=== PATIENT | female | born 1940 | race Caucasian/White ===

== ENCOUNTER → 2017-09-12 14:14 | Outpatient (CLI) | payer MEDICARE, OTHER, SELFPAY ==
--- NOTE | 2017-09-12 | DI.MG.S_ITS ---
BILATERAL DIGITAL SCREENING MAMMOGRAM 3D/2D WITH CAD: 09/12/2017 CLINICAL: Routine screening. Comparison is made to exams dated: 08/14/2016 mammogram - [facility], 06/13/2015 mammogram, and 06/13/2015 mammogram - [facility]. The tissue of both breasts is heterogeneously dense. This may lower the sensitivity of mammography. Current study was also evaluated with a Computer Aided Detection (CAD) system. No significant masses, calcifications, or other findings are seen in either breast. There has been no significant interval change. IMPRESSION: NEGATIVE There is no mammographic evidence of malignancy. A 1 year screening mammogram is recommended. This exam was interpreted at Station ID: [id number]. NOTE: For mammograms, a report in lay terms will be sent to the patient. Approximately 15% of breast malignancies will not be visualized mammographically. In the management of a palpable breast mass, a negative mammogram must not discourage biopsy of a clinically suspicious lesion. Electronically Signed By: Immanuel so/john:09/12/2017 15:47:49 letter sent: Normal Exam ACR BI-RADS Category 1: Negative [id number]
== END ==
PROVIDERS: Family Provider Physician Assistant; PCP Physician Assistant; Visit Provider Physician Assistant
DX: Z12.31 Encounter for screening mammogram for malignant neoplasm of breast (principal)
CPT/HCPCS: 77063; 77067

== ENCOUNTER 2017-12-03 13:56 | Day surgery (SDC) | payer MEDICARE, OTHER, SELFPAY ==
--- NOTE | 2017-12-03 08:33 | PM.PREOP ---
Pre-operative Note Interval Note Pre-op Check: Yes History & Physical Reviewed by Physician Changes: No
[2017-12-03 15:02] VITALS: BP 152/84; PULSE 72; RESP 18; TEMP 36.4; O2SAT 98
[2017-12-03 15:03] VITALS: BMI 20.7
[2017-12-03] MEDS: PROPARACAINE 0.5% OPHTH SOL 2 DROPS EYE-OP ×2 (15:05→15:54)
[2017-12-03] MEDS: CATARACT EYE COMPOUND (10 DROPS/SYRINGE) 3 DROPS EYE-OP (15:26)
[2017-12-03] MEDS: LIDOCAINE 1% W/EPI INJ 20 ML INJ (15:59)
[2017-12-03] MEDS: LIDOCAINE 2% 4 ML, BUPIVACAINE 0.5% (PF) 4 ML, HYALURONIDASE 150 UNIT INJ (16:00)
[2017-12-03] MEDS: CHONDROIDTIN/SOD HYALURONATE 1.05 ML SYRINGE INTRAOCULA (16:21)
[2017-12-03] MEDS: BALANCED SALT IRRIG SOLN NO.2 15 ML IRRIG.SOLN IRR (16:21)
[2017-12-03] MEDS: HYALURONATE SODIUM 10 MG/ML SYRINGE INJ (16:22)
[2017-12-03] MEDS: MOXIFLOXACIN OPHTH DROPS 3 ML BOTTLE 2 DROPS INJ (16:22)
[2017-12-03] MEDS: OFLOXACIN 0.3% OPHTH 5 ML 2 DROPS EYE-LEFT (16:23)
[2017-12-03] MEDS: NEOMYCIN/POLY/DEX OPHTH OINT 1 APPLIC EYE-LEFT (16:23)
[2017-12-03] MEDS: PHENYLEPHRINE/LIDOCAINE VIAL (OR) 0.2 ML EYE-OP (16:23)
[2017-12-03] MEDS: BALANCED SALT IRRIG SOLN NO.2 500 ML, EPINEPHrine 1 MG IRR (16:24)
[2017-12-03] MEDS: TRIAMCINOLONE 50 MG/5 ML VIAL INJ (16:24)
--- NOTE | 2017-12-03 16:53 | SUR.PREOP ---
Prior to surgery all OR staff alerted to Betadyne allergy.
[2017-12-03 16:54] VITALS: BP 148/84; PULSE 62; RESP 16; TEMP 36.2; O2SAT 95
--- NOTE | 2017-12-03 16:59 | PM.OP.1 ---
Procedure & Clinicians Procedure: Date of service:December 03 Preoperative diagnoses: 1. nuclear sclerotic and cortical Cataract. 2. Astigmatism which she likes to correct with a toric intraocular lens implant Postoperative diagnoses: 1. Cataract removed with phacoemulsification posterior chamber toric intraocular lens implanted. Procedure: Phacoemulsification with posterior chamber intraocular lens implant Surgeon: Kena Lackey MD Complications: none Specimen: None Implant: [id number] +23. Blood loss: None Anesthesia: Retrobulbar with monitored standby Anesthesiologist: Kendrick Patterson M.D. Description of procedure: Patient is a 77 year old female with decreased vision due to cataract which is affecting activities of daily living. She wants surgery to improve vision. She was taken to the operating room and given IV sedation. Topical proparacaine drops were placed and then indelible ink diego placed at the 90 and 180 degree meridian.A retrobulbar block consisting of 6 cc of 2% xylocaine without epinephrine mixed half and half with 0.5% Marcaine with 1 cc of hyaluronidase added is placed between the medial and lateral 1/3 of the inferior orbital rim. Lid akinesia is obtain with 1% xylocaine with epinephrine infiltrated along the lid margin. The eye is manually massaged for 30 sec, prepped using Betadine solution, and draped in the usual sterile fashion. Temporal approach was made, a 1 mm side-port incision was made at the 12 oclock meridian. Phenylephrine 1.5% mixed with 1% xylocaine 0.2 cc was placed into the anterior chamber. Viscoat followed by Healon was then placed. A 2.6 mm clear incision with a 2.6 mm blade was placed at the 3 oclock meridian. A 360 degree capsulorrhexis style capsulotomy was then performed with a cystitome needle on a Healon. Hydrodelineation and hydrodissection were performed. The phacoemulsification unit is introduced, and sculpting notice used to groove the central lens. It is then removed in chopping mode. Epi nucleus is removed with epinuclear mode and irrigation aspiration was used to remove the peripheral cortex. The posterior capsule is polished. The intraocular lens is selected, inspected, power confirmed, and placed in the posterior chamber at the 11 o'clock position. The pupil was constricted. The wound was stromally hydrated and tested for leaks, there was none and was left sutureless. Vigamox 0.1 cc was placed into the anterior chamber. Kenalog 0.2 cc was placed in the superior subconjunctival space. A drop of antibiotic and was placed and the eye was patched and shielded. The patient was stable and returned to the recovery room in excellent condition. Dictated by: Kena Lackey MD Copy to: [facility] Same procedure as scheduled: Yes
--- NOTE | 2017-12-03 17:09 | SUR.PHASEII ---
Much more relaxed than preoperative.
== END 2017-12-03 17:10 | disposition home or self-care (01) ==
LOC: OR 13:56
PROVIDERS: Family Provider Physician Assistant; PCP Physician Assistant; Visit Provider Ophthalmology
DX: H25.12 Age-related nuclear cataract, left eye (principal); F41.9 Anxiety disorder, unspecified; H52.202 Unspecified astigmatism, left eye
CPT/HCPCS: J0171; J2250; J2704; J3010; J3301; J3470; V2787

== ENCOUNTER 2017-12-17 08:25 | Day surgery (SDC) | payer MEDICARE, OTHER, SELFPAY ==
[2017-12-17] VITALS (7 sets, daily range): BP systolic 109–148; BP diastolic 67–93; PULSE 66–81; RESP 12–16; TEMP 35.8–36.7; O2SAT 95–100; BMI 20.7
--- NOTE | 2017-12-17 08:14 | PM.PREOP ---
Pre-operative Note Interval Note Pre-op Check: Yes History & Physical Reviewed by Physician Changes: No
--- NOTE | 2017-12-17 08:22 | PM.OP.1 ---
Operative Date/Time/Diagnoses Date of procedure: 12/17/17 Time of procedure: 11:00 Procedure & Clinicians Procedure: Date of service: December 18, 2007 Preoperative diagnoses: 1. Right nuclear and cortical cataract 2. Astigmatism which she elects to correct with a toric intraocular lens implant. 3. Restless leg syndrome requiring conversion to laryngeal mask airway to manage. Postoperative diagnoses: 1. Cataract removed with the phacoemulsification and posterior chamber intraocular toric lens placed. Procedure: Phacoemulsification with posterior chamber intraocular lens implant Surgeon: Kena Lackey MD Complications: Non.e Specimen: None Implent.: [id number] at 013 degrees. Implant: [id number] +23.0 [id number]. Chandler Mcbride M.D. Description of procedure: Patient is a female year old with decreased vision due to cataract which is affecting activities of daily living. She wants surgery to improve vision and correct astigmatism. She was taken to the operating room and given topical proparacaine drops and indelible ink markings placed at the 90 and 180 degree meridian. She was then placed on the operating room table and given IV sedation. A retrobulbar block insert consisting of 6 cc of 2% xylocaine without epinephrine mixed half and half with 0.5% Marcaine with 1 cc of hyaluronidase added is placed between the medial and lateral 1/3 of the inferior orbital rim. Lid akinesia is obtain with 1% xylocaine with epinephrine infiltrated along the lid margin. The eye is manually massaged for 30 sec, prepped using Betadine solution, and draped in the usual sterile fashion. She is sensitive to betadine so it was removed after 3 minutes without reaction. Temporal approach was made, a 1 mm side-port incision was made at the 7:30 position. The patient had severe jerking restless leg syndrome involving the whole body which did not resolved over several minutes so she was converted to general anesthetic with a laryngeal airway.Phenylephrine 1.5% mixed with 1% xylocaine 0.2 cc was placed into the anterior chamber. Viscoat followed by Yuridia was then placed. A 2.6 mm clear incision with a 2.6 mm blade was placed at the 170 degree meridian. A 360 degree capsulorrhexis style capsulotomy was then performed with a cystitome needle on a Healon. Hydrodelineation and hydrodissection were performed. The phacoemulsification unit is introduced, and sculpting notice used to groove the central lens. It is then removed in chopping mode. Epi nucleus is removed with epinuclear mode and irrigation aspiration was used to remove the peripheral cortex. The posterior capsule is polished. The intraocular lens is selected, inspected, power confirmed, and placed in the posterior chamber at the 013 degree meridian.. The pupil was not constricted. The wound was strongly hydrated and tested for leaks, there was none and left sutureless. Vigamox 0.1 cc was placed into the anterior chamber. Kenalog 0.2 cc was placed in the superior subconjunctival space. A drop of antibiotic and was placed and the eye was patched and shielded. The patient was stable and returned to the recovery room in excellent condition. Dictated by: Kena Lackey MD Copy to: [facility] Same procedure as scheduled: Yes
[2017-12-17] MEDS: PROPARACAINE 0.5% OPHTH SOL 2 DROPS EYE-OP (10:10)
[2017-12-17] MEDS: CATARACT EYE COMPOUND (10 DROPS/SYRINGE) 3 DROPS EYE-OP (10:21)
[2017-12-17] MEDS: HYALURONATE SODIUM 10 MG/ML SYRINGE INJ (11:19)
[2017-12-17] MEDS: LIDOCAINE 1% W/EPI INJ 20 ML INJ (11:19)
[2017-12-17] MEDS: CHONDROIDTIN/SOD HYALURONATE 1.05 ML SYRINGE INTRAOCULA (11:19)
[2017-12-17] MEDS: BALANCED SALT IRRIG SOLN NO.2 15 ML IRRIG.SOLN IRR (11:19)
[2017-12-17] MEDS: MOXIFLOXACIN OPHTH DROPS 3 ML BOTTLE 2 DROPS INJ (11:20)
[2017-12-17] MEDS: NEOMYCIN/POLY/DEX OPHTH OINT 1 APPLIC EYE-RIGHT (11:20)
[2017-12-17] MEDS: OFLOXACIN 0.3% OPHTH 5 ML 2 DROPS EYE-RIGHT (11:20)
[2017-12-17] MEDS: PHENYLEPHRINE/LIDOCAINE VIAL (OR) 0.2 ML EYE-OP (11:20)
[2017-12-17] MEDS: TRIAMCINOLONE 50 MG/5 ML VIAL INJ (11:21)
[2017-12-17] MEDS: BALANCED SALT IRRIG SOLN NO.2 500 ML, EPINEPHrine 1 MG IRR (11:21)
[2017-12-17] MEDS: LIDOCAINE 2% 4 ML, BUPIVACAINE 0.5% (PF) 4 ML, HYALURONIDASE 150 UNIT INJ (11:22)
--- NOTE | 2017-12-17 12:07 | SUR.PHASEI ---
operative eye is patched, shielded and c/d/i.
== END 2017-12-17 12:45 | disposition home or self-care (01) ==
LOC: OR 08:25
PROVIDERS: PCP Family Medicine; Visit Provider Ophthalmology
DX: H25.11 Age-related nuclear cataract, right eye (principal); H25.011 Cortical age-related cataract, right eye; H52.201 Unspecified astigmatism, right eye; G25.81 Restless legs syndrome; Z85.820 Personal history of malignant melanoma of skin; H91.90 Unspecified hearing loss, unspecified ear
CPT/HCPCS: J0171; J2250; J2704; J3010; J3301; J3470; V2787

== ENCOUNTER 2018-07-17 21:05 | Emergency (ER) | payer MEDICARE, OTHER, SELFPAY ==
[2018-07-17 21:10] VITALS: BP 137/87; PULSE 101; RESP 24; TEMP 36.6; O2SAT 100; BMI 20.9
--- NOTE | 2018-07-17 21:15 | DI.CT.S_ITS ---
PROCEDURE: CT HEAD/BRAIN WO CON INDICATIONS: headache,nausea,on plavix TECHNIQUE: Noncontrast 4.5 mm thick angled axial sections acquired from the foramen magnum to the vertex, with coronal and sagittal reformats. For radiation dose reduction, the following was used: automated exposure control, adjustment of mA and/or kV according to patient size. COMPARISON: None. FINDINGS: Image quality: Excellent. CSF spaces: Basal cisterns are patent. No extra-axial fluid collections. Ventricles are normal in size and shape. Brain: No midline shift. No intracranial masses or hemorrhage. Sultana-white matter interface is normal. There is age-related Loss and mild small vessel ischemic change, within normal limits for patient age. Skull and face: Calvarium and visualized facial bones are intact, without suspicious lesions. Sinuses: Visualized sinuses and mastoids are clear. IMPRESSION: 1. Age related volume loss and mild small vessel ischemic change, within normal limits for patient age. 2. Negative for acute stroke, hemorrhage, or mass. Dictated by: Mp Rodriguez M.D. on 07/17/2018 at 21:51 Approved by: Mp Rodriguez M.D. on 07/17/2018 at 21:52
--- NOTE | 2018-07-17 21:35 | ED_ITS ---
HPI - Headache General Chief Complaint: Headache Stated Complaint: THROWING UP HEADACHE Time Seen by Provider: 07/17/18 21:33 Source: patient and family Mode of arrival: ambulatory Limitations: no limitations History of Present Illness HPI Narrative: Patient is a 77-year-old female here for evaluation of a headache. She states that it started approximately 1 hour prior to arrival here in the emergency department. She has had some nausea. She states that when she was a kid that she used to have headaches. She states that in character this feels like 1 of her prior headaches. She states that it was a fairly sudden onset within an hour. No trauma. She did drive from [facility] to the local area today. She also states that she has recently had problems with her eyes and vision issues. She states that she has seen her doctor about this and they think that she needs further evaluation however there is no definitive diagnosis. No fevers. No neck pain. Not on anticoagulation. Describes the headache as all over and pounding. She also has had balance issues but these are not new they have been going on for many weeks if not months now. Related Data Home Medications Medication Instructions Recorded Confirmed calcium carbonate 600 mg PO DAILY #0 02/08/16 12/17/17 cholecalciferol (vitamin D3) 400 iu PO DAILY #0 02/08/16 12/17/17 [Vitamin D3] ibuprofen [Advil Liqui-Gel] 200 mg PO Q6H PRN #0 02/08/16 12/17/17 Previous Rx's Medication Instructions Recorded aspirin 81 mg tablet,delayed 81 mg PO DAILY #90 tab 12/05/17 release fluticasone propionate 50 2 spray NASAL DAILY #15.8 gram 12/05/17 mcg/actuation nasal spray,suspension loratadine 10 mg tablet 10 mg PO DAILY #90 tab 12/05/17 Allergies Allergy/AdvReac Type Severity Reaction Status Date / Time povidone-iodine Allergy Unknown Verified 07/17/18 21:09 [From BETADINE] soap [From BETADINE] Allergy Unknown Verified 07/17/18 21:09 morphine AdvReac Mild Irritable Verified 07/17/18 21:09 Review of Systems Constitutional Denies fatigue and Reports headache(s) Eyes Denies diplopia and Reports photophobia (This is been going on since her cataract surgery) ENT Ears, Nose, Mouth, and Throat: Denies vertigo, Denies dizziness, Reports headache(s) and Denies disequilibrium Cardiovascular Denies chest pain, Denies edema, Denies palpitations and Denies dyspnea Respiratory Denies dyspnea Gastrointestinal Gastrointestinal: Denies abdominal pain, Reports nausea and Reports vomiting Genitourinary Denies dysuria Integumentary/Breasts Denies rash Neurologic Denies confusion, Denies vertigo, Denies dizziness, Reports headache(s), Denies paresthesias and Denies disequilibrium Psychiatric Denies confusion Endocrine Denies fatigue and Denies palpitations Hematologic/Lymphatic Denies easy bleeding and Denies easy bruising Allergic/Immunologic Denies urticaria [facility] Medical History Actinic keratosis (Chronic) Fever (Chronic ~2001) Gout (Chronic ~2016) Hearing loss (Chronic) Herniated disc (Chronic ~2007) Osteopenia (Chronic) Presence of pessary (Chronic ~2002) Rheumatoid arthritis (Chronic ~2016) Seasonal allergies (Chronic ~1949) Shoulder pain (Chronic) Tinnitus (Chronic ~1949) Vision disorder (Chronic) Chicken pox (Resolved) Measles (Resolved) Mumps (Resolved) Family History Father No problems noted. Mother Hypertension Heart disease Sepsis Sister Hypertension Grandmother Stroke Grandmother Cancer Social History marital status: number of children: 2 household members: spouse housing: house education level: college occupational status: other (retired) Smoking Status: Never smoker alcohol intake: current substance use type: does not use Exam Initial Vital Signs Initial Vital Signs: Vital Signs Temperature 97.9 F 07/17/18 21:10 Pulse Rate 101 H 07/17/18 21:10 Respiratory Rate 24 07/17/18 21:10 Blood Pressure 137/87 07/17/18 21:10 Pulse Oximetry 100 07/17/18 21:10 Const General: cooperative, well developed, well groomed and No acute distress Orientation: alert, awake and oriented x3 HENMT Head: normal to inspection and normocephalic Nose: external nose normal Face and sinus: normal facial exam Mouth: oral mucosae normal Resp Effort & Inspection: normal respiratory effort Auscultation: clear to auscultation bilaterally Cardio Rate: regular rate Rhythm: regular rhythm GI Inspection: non-distended Palpation: soft Skin Lesions: no lesions Rashes: no rashes Neuro General: alert, awake and oriented x3 Cranial Nerves: CN's II-XI intact bilaterally Cognition: normal cognition Speech: speech normal Gait: normal gait Sensory Exam: no sensory deficits noted Extrem General: normal to inspection and capillary refill normal Psych Appearance: grossly normal and well kempt Scores GCS Nick coma scale eye opening: Spontaneous Nick coma scale verbal response: Orientated Morrow coma scale motor response: Obey commands Nick coma scale total score: 15 Course Orders Ordered: ED Orders 07/17/18 21:15 CT head/brain wo con Stat 07/17/18 22:08 Basic Metabolic Panel Stat Complete Blood Count AUTO DIFF Stat 07/17/18 23:05 Influenza A and B by PCR Rapid Stat Discontinued Medications Acetaminophen (Tylenol) 975 mg PO NOW ONE Stop: 07/17/18 21:42 Last Admin: 07/17/18 23:19 Dose: 975 mg Diphenhydramine HCl (Benadryl) 25 mg IV NOW ONE Stop: 07/17/18 21:42 Last Admin: 07/17/18 22:13 Dose: 25 mg Sodium Chloride (Normal Saline 0.9%) 1,000 mls @ 1,000 mls/hr IV BOLUS ONE Stop: 07/17/18 22:40 Last Infusion: 07/17/18 23:19 Dose: 0 mls/hr Admin: 07/17/18 22:13 Dose: 1,000 mls/hr Metoclopramide HCl (Reglan) 10 mg IV NOW ONE Stop: 07/17/18 21:42 Last Admin: 07/17/18 22:14 Dose: 10 mg Ondansetron HCl (Zofran Odt Prepack) 1 bottle MISC SEEINSTR ONE Stop: 07/17/18 23:36 Last Admin: 07/17/18 23:41 Dose: 1 bottle Vital Signs - 8 hr 07/17/18 21:10 07/17/18 22:23 07/17/18 23:22 Temperature 97.9 F Pulse Rate 101 H 91 H 81 Respiratory Rate 24 16 Blood Pressure 137/87 Blood Pressure [Left Arm] 152/76 H 139/68 Pulse Oximetry 100 94 98 MDM - Headache Lab Data Attestation: I reviewed the patient's lab results. Result diagrams: 07/17/18 22:08 07/17/18 22:08 Lab Results 07/17/18 07/17/18 07/17/18 Range/Units 22:08 22:08 23:05 WBC 8.9 (4.5-11.0) X10^3/uL RBC 4.78 (4.0-5.2) X10^6/uL Hgb 14.8 (12.0-16.0) g/dL Hct 43.5 (36-46) % MCV 91.1 (80-100) fL MCH 31.0 (26-34) PG MCHC 34.0 (30-36) % RDW 14.0 (11.6-14.8) % Plt Count 321 (150-400) X10^3/uL Neut % (Auto) 90.7 H (50-75) % Lymph % (Auto) 3.9 L (25-40) % Dale % (Auto) 4.4 (3-14) % Eos % (Auto) 0.8 L (2-4) % Baso % (Auto) 0.2 (0-2) % Neut # (Auto) 8000 H (2396-0837) /uL Lymph # (Auto) 300 L (6361-2945) /uL Dale # (Auto) 400 (0-900) /uL Eos # (Auto) 100 (0-450) /uL Baso # (Auto) 0 (0-100) /uL Sodium 139 (137-145) mmol/L Potassium 3.9 (3.4-5.1) mmol/L Chloride 106 (98-107) mmol/L Carbon Dioxide 21 L (22-32) mmol/L BUN 19 H (7-17) mg/dL Creatinine 0.80 (0.52-1.04) mg/dL Estimated GFR > 60.0 (>60) mL/min BUN/Creatinine Ratio 23.8 H (6-22) Glucose 163 H (80-110) mg/dL Calcium 9.6 (8.4-10.2) mg/dL Influenza A & B (PCR) Negative (Negative) Imaging Data CT scan - head: Radiologist's impression: [address] [address] [address] Scan Report Signed Patient: Lexus Moya#: [id number] : 3Acct:[id number] Age/Sex: 77 / FDate of Service: 07/17/18 Loc: ED Accession Number: [id number] Procedure: CT head/brain wo con Ordering Provider: Radha Kay D.O. PROCEDURE: CT HEAD/BRAIN WO CON INDICATIONS: headache,nausea,on plavix TECHNIQUE: Noncontrast 4.5 mm thick angled axial sections acquired from the foramen magnum to the vertex, with coronal and sagittal reformats. For radiation dose reduction, the following was used: automated exposure control, adjustment of mA and/or kV according to patient size. COMPARISON: None. FINDINGS: Image quality: Excellent. CSF spaces: Basal cisterns are patent. No extra-axial fluid collections. Ventricles are normal in size and shape. Brain: No midline shift. No intracranial masses or hemorrhage. Sultana-white matter interface is normal. There is age-related Loss and mild small vessel ischemic change, within normal limits for patient age. Skull and face: Calvarium and visualized facial bones are intact, without suspicious lesions. Sinuses: Visualized sinuses and mastoids are clear. IMPRESSION: 1. Age related volume loss and mild small vessel ischemic change, within normal limits for patient age. 2. Negative for acute stroke, hemorrhage, or mass. Dictated by: Mp Rodriguez M.D. on 07/17/2018 at 21:51 Approved by: Mp Rodriguez M.D. on 07/17/2018 at 21:52 [facility] Narrative Medical decision making narrative: Patient with a normal neurologic exam here in the emergency department. Her head CT was negative. This was done within 6 hours of the onset of her symptoms. we did discuss the possibility of an intracranial bleed and we did discuss the indications for lumbar puncture however after this discussion the patient declined. This head CT was done within 6 hours of the onset of the symptoms. she had almost complete resolution of her symptoms after medications here in the ER. She has had headaches before and she states this does feel somewhat like her prior headaches. Will hold on f urther workup for now. No fevers. No trauma. Doubt meningitis. I have a strong suspicion that her headache was caused by the vision issues that she has been having for several weeks now and then driving here all day from [place]. We discussed return precautions. Both her and Discharge Plan Departure Patient Disposition: Home Clinical Impression: Headache Qualifiers: Headache type: unspecified Headache chronicity pattern: unspecified pattern Intractability: not intractable Qualified Code(s): R51 - Headache Discharge Date/Time: 07/17/18 23:49 Interventions: ED Discharge Assessment Last Done: 07/17/18 23:47 Instructions: DI for Headache Activity Restrictions/Additional Instructions: Recommend to keep all of her scheduled medical appointments. Continue home her medications as directed. Contact your primary doctor on Friday for follow-up. Return to the emergency department for any new or worsening symptoms Prescriptions: No Action ibuprofen [Advil Liqui-Gel] 200 MG capsule 200 mg PO Q6H PRN (Reason: Pain (Scale Score 4-6)) Qty: 0 RF: 0 calcium carbonate 600 MG tablet 600 mg PO DAILY Qty: 0 RF: 0 cholecalciferol (vitamin D3) [Vitamin D3] 400 UNIT capsule 400 iu PO DAILY Qty: 0 RF: 0 aspirin 81 mg tablet,delayed release (DR/EC) 81 mg PO DAILY Qty: 90 RF: 0 fluticasone propionate [Aller-Vince] 50 mcg/actuation spray,suspension 2 spray NASAL DAILY Qty: 15.8 RF: 0 loratadine 10 mg tablet 10 mg PO DAILY Qty: 90 RF: 0 Referrals: Marely Sanchez DO [Primary Care Provider] -
[2018-07-17] MEDS: diphenhydrAMINE 50 MG/ML VIAL 25 MG IV (22:13)
[2018-07-17] MEDS: SODIUM CHLORIDE 0.9% 1,000 ML 1000 ML IV (22:13)
[2018-07-17] MEDS: METOCLOPRAMIDE 10 MG/2 ML INJ IV (22:14)
[2018-07-17 22:18] LABS: Add Manual Diff / Slide Review NO; Basophils Absolute Auto 0 /uL (0-100); Basophils Percent Auto 0.2 % (0-2); Eosinophils Absolute Auto 100 /uL (0-450); Eosinophils Percent Auto 0.8 % (2-4); Hematocrit 43.5 % (36-46); Hemoglobin 14.8 g/dL (12.0-16.0); Lymphocytes Absolute Auto 300 /uL (1100-4500); Lymphocytes Percent Auto 3.9 % (25-40); Mean Corpuscular Volume 91.1 fL (80-100); Monocytes Absolute Auto 400 /uL (0-900); Monocytes Percent Auto 4.4 % (3-14); Neutrophils Absolute Auto 8000 /uL (1500-7000); Neutrophils Percent Auto 90.7 % (50-75); Platelet Count 321 X10^3/uL (150-400); Red Blood Cell Count 4.78 X10^6/uL (4.0-5.2); White Blood Cell Count 8.9 X10^3/uL (4.5-11.0)
[2018-07-17 22:23] VITALS: BP 152/76; PULSE 91; O2SAT 94
--- NOTE | 2018-07-17 22:25 | PC.NURSE ---
Late Entry at 214 Pt returned from [place], evaluated by Dr Be at bedside. Pt had an episode of emesis, abd discomfort and feels like having diarrhea. After, pt assisted to bathroom for BM, urine. Attempted to catch urine in a hat but unsuccessful. Pt reports her had GI symptoms of nausea and diarrhea about 2 days ago while traveling back to [place] from [place]. Thought either he was having a viral illness or altitude illness. Pt assisted back to bed, reports CANTU at 4-5/10 and nausea improved. Pt appears to be having photophobia, according to the spouse, she had cataract surgery recently and has been having sensitivity to light. Pt also reports pt may had two TIAs in July and Dec last year. She had L side headache, expressive aphasia and evaluated in [place].
[2018-07-17 22:26] LABS: BUN Creatinine Ratio 23.8 (6-22); Blood Urea Nitrogen 19 mg/dL (7-17); Calcium 9.6 mg/dL (8.4-10.2); Carbon Dioxide 21 mmol/L (22-32); Chloride 106 mmol/L (98-107); Estimated Glomerular Filt Rate > 60.0 mL/min (>60); Glucose 163 mg/dL (80-110); HEMOLYSIS < 15 (0-50); Potassium 3.9 mmol/L (3.4-5.1); Sodium 139 mmol/L (137-145)
[2018-07-17] MEDS: ACETAMINOPHEN 325 MG TABLET 975 MG PO (23:19)
[2018-07-17 23:22] VITALS: BP 139/68; PULSE 81; RESP 16; O2SAT 98
[2018-07-17 23:28] LABS: Influenza A and B by PCR Rapid Negative (Negative)
[2018-07-17] MEDS: ONDANSETRON 4 MG ODT PREPACK 1 BOTTLE MISC (23:41)
== END 2018-07-17 23:49 | disposition home or self-care (01) ==
PROVIDERS: Emergency Provider Emergency Medicine; PCP Family Medicine
DX: R51 Headache (principal); R11.2 Nausea with vomiting, unspecified
CPT/HCPCS: 36591; 70450; 80048; 85025; 87400; 96361; 96374; 96375; 99283; 99284; J1200; J2765

== ENCOUNTER 2018-09-11 11:06 | Emergency (ER) | payer MEDICARE, OTHER, SELFPAY ==
[2018-09-11 11:19] VITALS: BP 180/88; PULSE 72; RESP 16; TEMP 36.6; O2SAT 100; BMI 20.7
--- NOTE | 2018-09-11 11:39 | DI.RAD.S_ITS ---
PROCEDURE: XR CHEST 1V INDICATIONS: chest pain TECHNIQUE: One view of the chest was acquired. COMPARISON: [facility], , CHEST 2 VIEW, 09/05/2010, 10:13. FINDINGS: Surgical changes and devices: None. Lungs and pleura: Lungs are clear. No pleural effusions or pneumothorax. Mediastinum: Mediastinal contours appear normal. Heart size is normal. Bones and chest wall: No suspicious bony lesions. Overlying soft tissues appear unremarkable. IMPRESSION: Normal for age, source of current chest pain symptoms is not seen. Dictated by: Raffi Olivo M.D. on 09/11/2018 at 11:59 Approved by: Raffi Olivo M.D. on 09/11/2018 at 12:13
[2018-09-11 12:00] VITALS: BP 164/94; PULSE 48; RESP 23; O2SAT 100
[2018-09-11 12:15] LABS: Add Manual Diff / Slide Review NO; Basophils Absolute Auto 100 /uL (0-100); Basophils Percent Auto 1.1 % (0-2); Eosinophils Absolute Auto 100 /uL (0-450); Eosinophils Percent Auto 2.4 % (2-4); Hematocrit 40.8 % (36-46); Hemoglobin 13.8 g/dL (12.0-16.0); Lymphocytes Absolute Auto 1500 /uL (1100-4500); Lymphocytes Percent Auto 23.8 % (25-40); Mean Corpuscular HGB Conc 33.7 % (30-36); Mean Corpuscular Hemoglobin 31.4 PG (26-34); Monocytes Absolute Auto 400 /uL (0-900); Monocytes Percent Auto 6.2 % (3-14); Neutrophils Absolute Auto 4200 /uL (1500-7000); Neutrophils Percent Auto 66.5 % (50-75); Platelet Count 261 X10^3/uL (150-400); Red Blood Cell Count 4.38 X10^6/uL (4.0-5.2); Red Cell Distribution Width 14.2 % (11.6-14.8); White Blood Cell Count 6.2 X10^3/uL (4.5-11.0)
[2018-09-11 12:24] LABS: INR 1.1 (0.9-1.3); Prothrombin Time 13.2 SECONDS (10.1-12.7)
[2018-09-11 12:26] LABS: Creatine Kinase 109 U/L (30-135); PTT Partial Thromboplastin Tim 35 SECONDS (26.4-36.2)
[2018-09-11 12:28] LABS: Alanine Aminotransferase 215 IU/L (9-52); Albumin 4.3 g/dL (3.5-5.0); Albumin Globulin Ratio 1.6 (1.0-2.8); Alkaline Phosphatase 71 U/L (38-126); Aspartate Aminotransferase 106 IU/L (14-36); BUN Creatinine Ratio 28.3 (6-22); Bilirubin Total 0.6 mg/dL (0.2-1.3); Blood Urea Nitrogen 17 mg/dL (7-17); Calcium 9.3 mg/dL (8.4-10.2); Carbon Dioxide 29 mmol/L (22-32); Chloride 103 mmol/L (98-107); Estimated Glomerular Filt Rate > 60.0 mL/min (>60); Globulin 2.7 g/dL (1.7-4.1); Glucose 79 mg/dL (80-110); HEMOLYSIS < 15 (0-50); Lipase 138 U/L (23-300); Sodium 139 mmol/L (137-145)
[2018-09-11 12:36] VITALS: BP 159/89; PULSE 54; RESP 14; O2SAT 99
[2018-09-11 12:40] LABS: Troponin I < 0.012 ng/mL (0.01-0.034)
[2018-09-11 12:42] LABS: CKMB % Relative Index 1.9 % (1.5-5.0); Creatine Kinase MB 2.08 ng/mL (<2.37)
--- NOTE | 2018-09-11 12:57 | DI.US.S_ITS ---
PROCEDURE: US ABDOMEN LIMITED INDICATIONS: ELEVATED LFTS, PAIN UPPER ABDOMEN TECHNIQUE: Real-time focused scanning was performed of the abdomen, with image documentation. COMPARISON: [facility], , ABDOMEN LIMITED, 10/14/2016, 8:17. FINDINGS: Pancreas and liver appear normal, gallbladder appears normal with normal wall thickness. No biliary distention is found. IMPRESSION: Normal limited abdominal ultrasound, source of abnormal liver function tests is not seen. No source of pain is found. Depending on the clinical status followup by CT scanning may be warranted. Dictated by: Raffi Olivo M.D. on 09/11/2018 at 14:40 Approved by: Raffi Olivo M.D. on 09/11/2018 at 14:42
--- NOTE | 2018-09-11 14:16 | DI.CT.S_ITS ---
PROCEDURE: CT ABDOMEN PELVIS W CON INDICATIONS: abd pain TECHNIQUE: After the administration of intravenous contrast, 5 mm thick sections acquired from the diaphragm to the symphysis. 5 mm coronal and sagittal reformats were acquired. For radiation dose reduction, the following was used: automated exposure control, adjustment of mA and/or kV according to patient size. COMPARISON: None. FINDINGS: Image quality: Excellent. ABDOMEN: Lung bases: Lung bases are clear. Heart size is normal. Solid organs: Liver is normal in size and enhancement. Gallbladder appears normal. Biliary system is non dilated. Pancreas enhances normally. Spleen is normal in size and enhancement. No adrenal nodules. Kidneys demonstrate normal size and enhancement, without hydronephrosis. Peritoneum and bowel: Bowel loops demonstrate normal wall thickness and caliber. No free fluid or air. Nodes and vessels: No retroperitoneal or mesenteric adenopathy by size criteria. Aorta and inferior vena cava are normal in size. Miscellaneous: No ventral hernias. PELVIS: Genitourinary: Bladder wall thickness is normal. Miscellaneous: No inguinal hernias or adenopathy. Bones: No suspicious bony lesions. No vertebral body compression fractures. IMPRESSION: Normal abdominal CT, normal pelvic CT, no sign of infection or neoplasm found. Bile ducts are normal in caliber, no urinary tract stone is seen. Please note that the gastric lumen is not fluid or air distended and no areas of gastritis or peptic ulcer disease is suspected. Dictated by: Raffi Olivo M.D. on 09/11/2018 at 14:42 Approved by: Raffi Olivo M.D. on 09/11/2018 at 14:44
[2018-09-11 14:52] VITALS: BP 144/74; PULSE 58; RESP 16; O2SAT 100
[2018-09-11 15:45] VITALS: BP 150/85; PULSE 60; RESP 16; O2SAT 99
--- NOTE | 2018-09-11 16:19 | ED.ABDPAIN ---
HPI - Abdominal Pain <Radha Marks, [employer] - Last Filed: 09/11/18 16:25> General Chief Complaint: Abdominal Pain Stated Complaint: Stomach Pains Time Seen by Provider: 09/11/18 12:03 Source: patient and family Mode of arrival: ambulatory Limitations: no limitations History of Present Illness HPI narrative: The patient is a 77-year-old female nonsmoker with history of TIA who presents with her for chief complaint of abdominal pain. It occurred approximately 8:00 a.m.. She states it started in the center of her abdomen and radiated downward. She states that her abdominal pain has improved significantly since it happened. She denies any fevers nausea vomiting or diarrhea. She denies any previous abdominal surgeries. She denies any chest pain or shortness of breath. She did not take anything for the pain such as Tums. Her last bowel movement was earlier today. She states she has been having soft bowel movements. Denies any constipation or diarrhea. She denies any dysuria urgency or frequency. Related Data Home Medications Medication Instructions Recorded Confirmed calcium carbonate 600 mg PO BID #0 02/08/16 09/11/18 clopidogrel 75 mg tablet 75 mg PO DAILY 07/22/18 09/11/18 escitalopram 5 mg tablet 5 mg PO DAILY 07/22/18 09/11/18 methotrexate sodium 2.5 mg tablet 15 mg PO PARKS tab 07/22/18 09/11/18 metoprolol tartrate 25 mg tablet 25 mg PO BID 07/22/18 09/11/18 rosuvastatin 20 mg tablet 10 mg PO QPM tab 07/22/18 09/11/18 Allerflo Nose Drops 2 spray INTRANASAL QAM PRN 09/11/18 09/11/18 Allertec 1 tab PO DAILY PRN 09/11/18 09/11/18 cholecalciferol (vitamin D3) 2,000 unit PO DAILY 09/11/18 09/11/18 [Vitamin D3] folic acid 1 mg PO MOTUWETHFRSA 09/11/18 09/11/18 Allergies Allergy/AdvReac Type Severity Reaction Status Date / Time povidone-iodine Allergy Unknown Verified 07/22/18 12:28 [From BETADINE] soap [From BETADINE] Allergy Unknown Verified 07/22/18 12:28 morphine AdvReac Mild Irritable Verified 07/22/18 12:28 Review of Systems <DARIAN Mojica - Last Filed: 09/11/18 16:25> Review of Systems GENERAL: Denies chills, fatigue, malaise, fever, sweats. HEENT: Denies sinus pain, ear pain, sore throat, difficulty swallowing, dizziness. RESPIRATORY: Denies dyspnea, cough, wheezing, hemoptysis, sputum. CARDIOVASCULAR: Denies chest pain, palpitations, orthopnea, edema, GASTROINTESTINAL: See HPI : Denies dysuria, frequency, incontinence, hematuria, urinary retention. MUSCULOSKELETAL: denies weakness, joint pain, or bony pain SKIN: Denies rash, skin lesions, or other NEUROLOGIC: Denies weakness, headache, numbness, change in speech, confusion, seizures, incoordination. PSYCHIATRIC: No concerning psychosocial issues. 12 point review of systems is negative except for those stated above PFSH <DARIAN Mojica - Last Filed: 09/11/18 16:25> Medical History Actinic keratosis (Chronic) Fever (Chronic ~2001) Gout (Chronic ~2016) Hearing loss (Chronic) Herniated disc (Chronic ~2007) Osteopenia (Chronic) Presence of pessary (Chronic ~2002) Rheumatoid arthritis (Chronic ~2016) Seasonal allergies (Chronic ~1949) Shoulder pain (Chronic) Tinnitus (Chronic ~1949) Vision disorder (Chronic) Chicken pox (Resolved) Measles (Resolved) Mumps (Resolved) Surgical History History of hernia repair (Resolved ~2011) History of repair of ACL (Resolved ~1999) History of tubal ligation (Resolved ~1973) Melanoma in situ (Resolved ~2007) Skin cancer, basal cell (Resolved ~2016) Family History Father No problems noted. Mother Hypertension Heart disease Sepsis Sister Hypertension Grandmother Stroke Grandmother Cancer Social History marital status: number of children: 2 household members: spouse housing: house education level: college occupational status: other (retired) Smoking Status: Never smoker alcohol intake: current substance use type: does not use Family History Father No problems noted. Mother Hypertension Heart disease Sepsis Sister Hypertension Grandmother Stroke Grandmother Cancer Social History marital status: number of children: 2 household members: spouse housing: house education level: college occupational status: other (retired) Smoking Status: Never smoker alcohol intake: current substance use type: does not use Exam <DARIAN Mojica - Last Filed: 09/11/18 16:25> Narrative Exam Narrative: GENERAL: Elderly lady female lying on stretcher in no acute distress HEAD: Atraumatic. Normocephalic. No temporal or scalp tenderness. EYES: Pupils equal round and reactive. Extraocular motions intact. No scleral icterus. No injection or drainage. ENT: Nose without bleeding, purulent drainage or septal hematoma. Throat without erythema, tonsillar hypertrophy or exudate. Uvula midline. Airway patent. NECK: Trachea midline. No JVD or lymphadenopathy. Supple, nontender, no meningeal signs. CARDIOVASCULAR: Regular rate and rhythm without murmurs, gallops, or rubs. RESPIRATORY: Clear to auscultation. Breath sounds equal bilaterally. No wheezes, rales, or rhonchi. No cough. No increased respiratory effort. No accessory muscle use. GASTROINTESTINAL: Abdomen soft, diffusely tender to palpation right upper and left upper quadrant but no guarding, nondistended. No hepato-splenomegaly, or palpable masses. No guarding. Active bowel sounds all 4 quadrants. EXTREMITIES: No clubbing, cyanosis, or edema. No joint tenderness, effusion, or edema noted. BACK: Nontender without deformity or crepitance. No flank tenderness. NEURO: AOx3. Stable gait. Cranial nerves grossly intact. Using all extremities. SKIN: No rash or erythema. Initial Vital Signs Initial Vital Signs: Vital Signs Temperature 97.8 F 09/11/18 11:19 Pulse Rate 72 09/11/18 11:19 Respiratory Rate 16 09/11/18 11:19 Blood Pressure 180/88 H 09/11/18 11:19 Pulse Oximetry 100 09/11/18 11:19 <Radha Kay DO - Last Filed: 09/11/18 16:47> Initial Vital Signs Initial Vital Signs: Vital Signs Temperature 97.8 F 09/11/18 11:19 Pulse Rate 72 09/11/18 11:19 Respiratory Rate 16 09/11/18 11:19 Blood Pressure 180/88 H 09/11/18 11:19 Pulse Oximetry 100 09/11/18 11:19 Course <Radha MarksVIRYP-BC - Last Filed: 09/11/18 16:25> Orders Ordered: ED Orders 09/11/18 11:38 EKG-12 Lead Stat 09/11/18 11:39 XR chest 1V Stat 09/11/18 12:00 Complete Blood Count AUTO DIFF Stat Comprehensive Metabolic Panel Stat Lipase Stat Partial Thromboplastin Time Stat Prothrombin Time INR Stat Troponin & CK Cardiac Panel Stat 09/11/18 12:57 US abdomen limited Stat 09/11/18 14:16 CT abdomen pelvis w con Stat Vital Signs - 8 hr 09/11/18 11:19 09/11/18 12:00 09/11/18 12:36 Temperature 97.8 F Pulse Rate 72 48 L 54 L Respiratory Rate 16 23 14 Blood Pressure 180/88 H Blood Pressure [Left Arm] 164/94 H 159/89 H Pulse Oximetry 100 100 99 09/11/18 14:52 09/11/18 15:45 Temperature Pulse Rate 58 L 60 Respiratory Rate 16 16 Blood Pressure 150/85 H Blood Pressure [Left Arm] 144/74 H Pulse Oximetry 100 99 <Radha Marilyn Kay DO - Last Filed: 09/11/18 16:47> Orders Ordered: ED Orders 09/11/18 11:38 EKG-12 Lead Stat 09/11/18 11:39 XR chest 1V Stat 09/11/18 12:00 Complete Blood Count AUTO DIFF Stat Comprehensive Metabolic Panel Stat Lipase Stat Partial Thromboplastin Time Stat Prothrombin Time INR Stat Troponin & CK Cardiac Panel Stat 09/11/18 12:57 US abdomen limited Stat 09/11/18 14:16 CT abdomen pelvis w con Stat Vital Signs - 8 hr 09/11/18 11:19 09/11/18 12:00 09/11/18 12:36 Temperature 97.8 F Pulse Rate 72 48 L 54 L Respiratory Rate 16 23 14 Blood Pressure 180/88 H Blood Pressure [Left Arm] 164/94 H 159/89 H Pulse Oximetry 100 100 99 09/11/18 14:52 09/11/18 15:45 Temperature Pulse Rate 58 L 60 Respiratory Rate 16 16 Blood Pressure 150/85 H Blood Pressure [Left Arm] 144/74 H Pulse Oximetry 100 99 MDM - Abdominal Pain <Radha Marks [employer] - Last Filed: 09/11/18 16:25> Lab Data Result diagrams: 09/11/18 12:00 09/11/18 12:00 Lab Results 09/11/18 09/11/18 09/11/18 Range/Units 12:00 12:00 12:00 WBC 6.2 (4.5-11.0) X10^3/uL RBC 4.38 (4.0-5.2) X10^6/uL Hgb 13.8 (12.0-16.0) g/dL Hct 40.8 (36-46) % MCV 93.0 (80-100) fL MCH 31.4 (26-34) PG MCHC 33.7 (30-36) % RDW 14.2 (11.6-14.8) % Plt Count 261 (150-400) X10^3/uL Neut % (Auto) 66.5 (50-75) % Lymph % (Auto) 23.8 L (25-40) % [place] % (Auto) 6.2 (3-14) % Eos % (Auto) 2.4 (2-4) % Baso % (Auto) 1.1 (0-2) % Neut # (Auto) 4200 (6295-5868) /uL Lymph # (Auto) 1500 (2264-5637) /uL [place] # (Auto) 400 (0-900) /uL Eos # (Auto) 100 (0-450) /uL Baso # (Auto) 100 (0-100) /uL PT 13.2 H (10.1-12.7) SECONDS INR 1.1 (0.9-1.3) APTT 35 (26.4-36.2) SECONDS Sodium 139 (137-145) mmol/L Potassium 4.0 (3.4-5.1) mmol/L Chloride 103 (98-107) mmol/L Carbon Dioxide 29 (22-32) mmol/L BUN 17 (7-17) mg/dL Creatinine 0.60 (0.52-1.04) mg/dL Estimated GFR > 60.0 (>60) mL/min BUN/Creatinine Ratio 28.3 H (6-22) Glucose 79 L (80-110) mg/dL Calcium 9.3 (8.4-10.2) mg/dL Total Bilirubin 0.6 (0.2-1.3) mg/dL AST 106 H (14-36) IU/L ALT 215 H (9-52) IU/L Alkaline Phosphatase 71 (38-126) U/L Total Creatine Kinase (30-135) U/L CK-MB (CK-2) (<2.37) ng/mL CK-MB (CK-2) Rel Index (1.5-5.0) % Troponin I (0.01-0.034) ng/mL Total Protein 7.0 (6.3-8.2) g/dL Albumin 4.3 (3.5-5.0) g/dL Globulin 2.7 (1.7-4.1) g/dL Albumin/Globulin Ratio 1.6 (1.0-2.8) Lipase 138 (23-300) U/L 09/11/18 Range/Units 12:00 WBC (4.5-11.0) X10^3/uL RBC (4.0-5.2) X10^6/uL Hgb (12.0-16.0) g/dL Hct (36-46) % MCV (80-100) fL MCH (26-34) PG MCHC (30-36) % RDW (11.6-14.8) % Plt Count (150-400) X10^3/uL Neut % (Auto) (50-75) % Lymph % (Auto) (25-40) % [place] % (Auto) (3-14) % Eos % (Auto) (2-4) % Baso % (Auto) (0-2) % Neut # (Auto) (7785-5458) /uL Lymph # (Auto) (4908-9493) /uL [place] # (Auto) (0-900) /uL Eos # (Auto) (0-450) /uL Baso # (Auto) (0-100) /uL PT (10.1-12.7) SECONDS INR (0.9-1.3) APTT (26.4-36.2) SECONDS Sodium (137-145) mmol/L Potassium (3.4-5.1) mmol/L Chloride (98-107) mmol/L Carbon Dioxide (22-32) mmol/L BUN (7-17) mg/dL Creatinine (0.52-1.04) mg/dL Estimated GFR (>60) mL/min BUN/Creatinine Ratio (6-22) Glucose (80-110) mg/dL Calcium (8.4-10.2) mg/dL Total Bilirubin (0.2-1.3) mg/dL AST (14-36) IU/L ALT (9-52) IU/L Alkaline Phosphatase (38-126) U/L Total Creatine Kinase 109 (30-135) U/L CK-MB (CK-2) 2.08 (<2.37) ng/mL CK-MB (CK-2) Rel Index 1.9 (1.5-5.0) % Troponin I < 0.012 (0.01-0.034) ng/mL Total Protein (6.3-8.2) g/dL Albumin (3.5-5.0) g/dL Globulin (1.7-4.1) g/dL Albumin/Globulin Ratio (1.0-2.8) Lipase (23-300) U/L Point of care testing: Urine Dip Bedside Urine Glucose Negative Bedside Urine Bilirubin - Negative Bedside Urine Ketone - Negative Urine Specific [place] 1.015 Bedside Urine Occult Blood - Negative Bedside Urine pH 7.5 Bedside Urine Protein - Negative Bedside Urine Urobilinogen - Negative Bedside Urine Nitrite - Negative Bedside Urine Leukocytes - Negative Esterase Imaging Data CT scan - abdomen: Radiologist's impression: [address] [address] [address] Scan Report Signed Patient: Lexus MoyaMR#: [id number] : 3Acct:[id number] Age/Sex: 77 / FDate of Service: 09/11/18 Loc: ED Accession Number: [id number] Procedure: CT abdomen pelvis w con Ordering Provider: Radha Marks [employer]- PROCEDURE: CT ABDOMEN PELVIS W CON INDICATIONS: abd pain TECHNIQUE: After the administration of intravenous contrast, 5 mm thick sections acquired from the diaphragm to the symphysis. 5 mm coronal and sagittal reformats were acquired. For radiation dose reduction, the following was used: automated exposure control, adjustment of mA and/or kV according to patient size. COMPARISON: None. FINDINGS: Image quality: Excellent. ABDOMEN: Lung bases: Lung bases are clear. Heart size is normal. Solid organs: Liver is normal in size and enhancement. Gallbladder appears normal. Biliary system is non dilated. Pancreas enhances normally. Spleen is normal in size and enhancement. No adrenal nodules. Kidneys demonstrate normal size and enhancement, without hydronephrosis. Peritoneum and bowel: Bowel loops demonstrate normal wall thickness and caliber. No free fluid or air. Nodes and vessels: No retroperitoneal or mesenteric adenopathy by size criteria. Aorta and inferior vena cava are normal in size. Miscellaneous: No ventral hernias. PELVIS: Genitourinary: Bladder wall thickness is normal. Miscellaneous: No inguinal hernias or adenopathy. Bones: No suspicious bony lesions. No vertebral body compression fractures. IMPRESSION: Normal abdominal CT, normal pelvic CT, no sign of infection or neoplasm found. Bile ducts are normal in caliber, no urinary tract stone is seen. Please note that the gastric lumen is not fluid or air distended and no areas of gastritis or peptic ulcer disease is suspected. Dictated by: Raffi Olivo M.D. on 09/11/2018 at 14:42 Approved by: Raffi Olivo M.D. on 09/11/2018 at 14:44 US - abdomen: Radiologist's impression: [place] [address] Ultrasound Report Signed Patient: Lexus Moya#: [id number] : 3Acct:[id number] Age/Sex: 77 / FDate of Service: 09/11/18 Loc: ED Accession Number: [id number] Procedure: US abdomen limited Ordering Provider: Radha Marks PROCEDURE: US ABDOMEN LIMITED INDICATIONS: ELEVATED LFTS, PAIN UPPER ABDOMEN TECHNIQUE: Real-time focused scanning was performed of the abdomen, with image documentation. COMPARISON: [facility], , ABDOMEN LIMITED, 10/14/2016, 8:17. FINDINGS: Pancreas and liver appear normal, gallbladder appears normal with normal wall thickness. No biliary distention is found. IMPRESSION: Normal limited abdominal ultrasound, source of abnormal liver function tests is not seen. No source of pain is found. Depending on the clinical status followup by CT scanning may be warranted. Dictated by: Raffi Olivo M.D. on 09/11/2018 at 14:40 Approved by: Raffi Olivo M.D. on 09/11/2018 at 14:42 ECG Data Attestation: I personally reviewed and interpreted this ECG as follows: Interpretation: Sinus bradycardia. Ventricular rate 51. No ST elevation or depression noted. No ectopy noted. Viewed by Dr. Kay at 1135 MDM Narrative Medical decision making narrative: The patient is a 77-year-old female who presents with an episode of abdominal pain this morning, much improved upon arrival to the emergency department. She did have an EKG done, troponin drawn given her pain. Her troponin came back negative. Overall her CBC and CMP had no acute findings. Her LFTs are noted to be slightly elevated. I did obtain a ultrasound of her liver and gallbladder given her pain. This came back normal, so I obtained a CT scan which came back normal as well. I did discuss a trial of antacid medication, such as Protonix. However the patient declined any medications at this point time given that she is feeling much improved. I encouraged her to follow up with primary care provider. Discussed at length return precautions to the emergency department including chest pain, concern of heart attack or stroke. Patient and have no questions or concerns upon discharge <Radha Kay, - Last Filed: 09/11/18 16:47> Lab Data Lab Results 09/11/18 09/11/18 09/11/18 Range/Units 12:00 12:00 12:00 WBC 6.2 (4.5-11.0) X10^3/uL RBC 4.38 (4.0-5.2) X10^6/uL Hgb 13.8 (12.0-16.0) g/dL Hct 40.8 (36-46) % MCV 93.0 (80-100) fL MCH 31.4 (26-34) PG MCHC 33.7 (30-36) % RDW 14.2 (11.6-14.8) % Plt Count 261 (150-400) X10^3/uL Neut % (Auto) 66.5 (50-75) % Lymph % (Auto) 23.8 L (25-40) % [place] % (Auto) 6.2 (3-14) % Eos % (Auto) 2.4 (2-4) % Baso % (Auto) 1.1 (0-2) % Neut # (Auto) 4200 (8266-5601) /uL Lymph # (Auto) 1500 (8027-5979) /uL [place] # (Auto) 400 (0-900) /uL Eos # (Auto) 100 (0-450) /uL Baso # (Auto) 100 (0-100) /uL PT 13.2 H (10.1-12.7) SECONDS INR 1.1 (0.9-1.3) APTT 35 (26.4-36.2) SECONDS Sodium 139 (137-145) mmol/L Potassium 4.0 (3.4-5.1) mmol/L Chloride 103 (98-107) mmol/L Carbon Dioxide 29 (22-32) mmol/L BUN 17 (7-17) mg/dL Creatinine 0.60 (0.52-1.04) mg/dL Estimated GFR > 60.0 (>60) mL/min BUN/Creatinine Ratio 28.3 H (6-22) Glucose 79 L (80-110) mg/dL Calcium 9.3 (8.4-10.2) mg/dL Total Bilirubin 0.6 (0.2-1.3) mg/dL AST 106 H (14-36) IU/L ALT 215 H (9-52) IU/L Alkaline Phosphatase 71 (38-126) U/L Total Creatine Kinase (30-135) U/L CK-MB (CK-2) (<2.37) ng/mL CK-MB (CK-2) Rel Index (1.5-5.0) % Troponin I (0.01-0.034) ng/mL Total Protein 7.0 (6.3-8.2) g/dL Albumin 4.3 (3.5-5.0) g/dL Globulin 2.7 (1.7-4.1) g/dL Albumin/Globulin Ratio 1.6 (1.0-2.8) Lipase 138 (23-300) U/L 09/11/18 Range/Units 12:00 WBC (4.5-11.0) X10^3/uL RBC (4.0-5.2) X10^6/uL Hgb (12.0-16.0) g/dL Hct (36-46) % MCV (80-100) fL MCH (26-34) PG MCHC (30-36) % RDW (11.6-14.8) % Plt Count (150-400) X10^3/uL Neut % (Auto) (50-75) % Lymph % (Auto) (25-40) % [place] % (Auto) (3-14) % Eos % (Auto) (2-4) % Baso % (Auto) (0-2) % Neut # (Auto) (7204-8849) /uL Lymph # (Auto) (1057-3494) /uL [place] # (Auto) (0-900) /uL Eos # (Auto) (0-450) /uL Baso # (Auto) (0-100) /uL PT (10.1-12.7) SECONDS INR (0.9-1.3) APTT (26.4-36.2) SECONDS Sodium (137-145) mmol/L Potassium (3.4-5.1) mmol/L Chloride (98-107) mmol/L Carbon Dioxide (22-32) mmol/L BUN (7-17) mg/dL Creatinine (0.52-1.04) mg/dL Estimated GFR (>60) mL/min BUN/Creatinine Ratio (6-22) Glucose (80-110) mg/dL Calcium (8.4-10.2) mg/dL Total Bilirubin (0.2-1.3) mg/dL AST (14-36) IU/L ALT (9-52) IU/L Alkaline Phosphatase (38-126) U/L Total Creatine Kinase 109 (30-135) U/L CK-MB (CK-2) 2.08 (<2.37) ng/mL CK-MB (CK-2) Rel Index 1.9 (1.5-5.0) % Troponin I < 0.012 (0.01-0.034) ng/mL Total Protein (6.3-8.2) g/dL Albumin (3.5-5.0) g/dL Globulin (1.7-4.1) g/dL Albumin/Globulin Ratio (1.0-2.8) Lipase (23-300) U/L Point of care testing: Urine Dip Bedside Urine Glucose Negative Bedside Urine Bilirubin - Negative Bedside Urine Ketone - Negative Urine Specific [place] 1.015 Bedside Urine Occult Blood - Negative Bedside Urine pH 7.5 Bedside Urine Protein - Negative Bedside Urine Urobilinogen - Negative Bedside Urine Nitrite - Negative Bedside Urine Leukocytes - Negative Esterase Discharge Plan Departure Patient Disposition: Home Clinical Impression: Elevated alanine aminotransferase (ALT) level, Elevated AST (SGOT) Abdominal pain Qualifiers: Abdominal location: generalized Qualified Code(s): R10.84 - Generalized abdominal pain Discharge Date/Time: 09/11/18 15:45 Interventions: ED Discharge Assessment Last Done: 09/11/18 15:45 Instructions: DI for Abdominal Pain-Adult Activity Restrictions/Additional Instructions: Your workup today came back normal, including ultrasound and CT scan. Please follow up with her primary care provider in the next few days. Please come back to the emergency department for any acute concerns including chest pain, shortness of breath concern of heart attack or stroke. Please monitor your abdominal pain and come back to the ER if you have severe abdominal pain, especially with fever or inability keep down fluids. Prescriptions: No Action calcium carbonate 600 MG tablet 600 mg PO BID Qty: 0 RF: 0 clopidogrel [Plavix] 75 mg tablet 75 mg PO DAILY RF: 0 metoprolol tartrate 25 mg tablet 25 mg PO BID RF: 0 escitalopram oxalate [Lexapro] 5 mg tablet 5 mg PO DAILY RF: 0 rosuvastatin [Crestor] 20 mg tablet 10 mg PO QPM RF: 0 methotrexate sodium 2.5 mg tablet 15 mg PO PARKS RF: 0 Allerflo Nose Drops 2 spray intranasal QAM PRN (Reason: Allergy Symptoms) RF: 0 Allertec 1 tab PO DAILY PRN (Reason: Allergy Symptoms) RF: 0 folic acid 1 mg Tablet 1 mg PO MOTUWETHFRSA RF: 0 cholecalciferol (vitamin D3) [Vitamin D3] 2,000 unit Capsule 2,000 unit PO DAILY RF: 0 Referrals: Marely Sanchez DO [Primary Care Provider] - <Radha Kay DO - Last Filed: 09/11/18 16:47> Cosign ED Attending Cosdustinature Attestation: I was immediately available in the department for consultation. This documentation has been reviewed and I agree with assessment and plan. Supervised by Radha Kay DO
--- NOTE | 2018-09-11 16:25 | ED_ITS ---
HPI - Abdominal Pain <Radha Marks, WATER PURIFIER OPERATOR-BC - Last Filed: 09/11/18 16:25> General Chief Complaint: Abdominal Pain Stated Complaint: Stomach Pains Time Seen by Provider: 09/11/18 12:03 Source: patient and family Mode of arrival: ambulatory Limitations: no limitations History of Present Illness HPI narrative: The patient is a 77-year-old female nonsmoker with history of TIA who presents with her for chief complaint of abdominal pain. It occurred approximately 8:00 a.m.. She states it started in the center of her abdomen and radiated downward. She states that her abdominal pain has improved significantly since it happened. She denies any fevers nausea vomiting or diarrhea. She denies any previous abdominal surgeries. She denies any chest pain or shortness of breath. She did not take anything for the pain such as Tums. Her last bowel movement was earlier today. She states she has been having soft bowel movements. Denies any constipation or diarrhea. She denies any dysuria urgency or frequency. Related Data Home Medications Medication Instructions Recorded Confirmed calcium carbonate 600 mg PO BID #0 02/08/16 09/11/18 clopidogrel 75 mg tablet 75 mg PO DAILY 07/22/18 09/11/18 escitalopram 5 mg tablet 5 mg PO DAILY 07/22/18 09/11/18 methotrexate sodium 2.5 mg tablet 15 mg PO PARKS tab 07/22/18 09/11/18 metoprolol tartrate 25 mg tablet 25 mg PO BID 07/22/18 09/11/18 rosuvastatin 20 mg tablet 10 mg PO QPM tab 07/22/18 09/11/18 Allerflo Nose Drops 2 spray INTRANASAL QAM PRN 09/11/18 09/11/18 Allertec 1 tab PO DAILY PRN 09/11/18 09/11/18 cholecalciferol (vitamin D3) 2,000 unit PO DAILY 09/11/18 09/11/18 [Vitamin D3] folic acid 1 mg PO MOTUWETHFRSA 09/11/18 09/11/18 Allergies Allergy/AdvReac Type Severity Reaction Status Date / Time povidone-iodine Allergy Unknown Verified 07/22/18 12:28 [From BETADINE] soap [From BETADINE] Allergy Unknown Verified 07/22/18 12:28 morphine AdvReac Mild Irritable Verified 07/22/18 12:28 Review of Systems <DARIAN Mojica - Last Filed: 09/11/18 16:25> Review of Systems GENERAL: Denies chills, fatigue, malaise, fever, sweats. HEENT: Denies sinus pain, ear pain, sore throat, difficulty swallowing, dizziness. RESPIRATORY: Denies dyspnea, cough, wheezing, hemoptysis, sputum. CARDIOVASCULAR: Denies chest pain, palpitations, orthopnea, edema, GASTROINTESTINAL: See HPI : Denies dysuria, frequency, incontinence, hematuria, urinary retention. MUSCULOSKELETAL: denies weakness, joint pain, or bony pain SKIN: Denies rash, skin lesions, or other NEUROLOGIC: Denies weakness, headache, numbness, change in speech, confusion, seizures, incoordination. PSYCHIATRIC: No concerning psychosocial issues. 12 point review of systems is negative except for those stated above PFSH <DARIAN Mojica - Last Filed: 09/11/18 16:25> Medical History Actinic keratosis (Chronic) Fever (Chronic ~2001) Gout (Chronic ~2016) Hearing loss (Chronic) Herniated disc (Chronic ~2007) Osteopenia (Chronic) Presence of pessary (Chronic ~2002) Rheumatoid arthritis (Chronic ~2016) Seasonal allergies (Chronic ~1949) Shoulder pain (Chronic) Tinnitus (Chronic ~1949) Vision disorder (Chronic) Chicken pox (Resolved) Measles (Resolved) Mumps (Resolved) Surgical History History of hernia repair (Resolved ~2011) History of repair of ACL (Resolved ~1999) History of tubal ligation (Resolved ~1973) Melanoma in situ (Resolved ~2007) Skin cancer, basal cell (Resolved ~2016) Family History Father No problems noted. Mother Hypertension Heart disease Sepsis Sister Hypertension Grandmother Stroke Grandmother Cancer Social History marital status: number of children: 2 household members: spouse housing: house education level: college occupational status: other (retired) Smoking Status: Never smoker alcohol intake: current substance use type: does not use Family History Father No problems noted. Mother Hypertension Heart disease Sepsis Sister Hypertension Grandmother Stroke Grandmother Cancer Social History marital status: number of children: 2 household members: spouse housing: house education level: college occupational status: other (retired) Smoking Status: Never smoker alcohol intake: current substance use type: does not use Exam <DARIAN Mojica - Last Filed: 09/11/18 16:25> Narrative Exam Narrative: GENERAL: Elderly lady female lying on stretcher in no acute distress HEAD: Atraumatic. Normocephalic. No temporal or scalp tenderness. EYES: Pupils equal round and reactive. Extraocular motions intact. No scleral icterus. No injection or drainage. ENT: Nose without bleeding, purulent drainage or septal hematoma. Throat without erythema, tonsillar hypertrophy or exudate. Uvula midline. Airway patent. NECK: Trachea midline. No JVD or lymphadenopathy. Supple, nontender, no meningeal signs. CARDIOVASCULAR: Regular rate and rhythm without murmurs, gallops, or rubs. RESPIRATORY: Clear to auscultation. Breath sounds equal bilaterally. No wheezes, rales, or rhonchi. No cough. No increased respiratory effort. No accessory muscle use. GASTROINTESTINAL: Abdomen soft, diffusely tender to palpation right upper and left upper quadrant but no guarding, nondistended. No hepato-splenomegaly, or palpable masses. No guarding. Active bowel sounds all 4 quadrants. EXTREMITIES: No clubbing, cyanosis, or edema. No joint tenderness, effusion, or edema noted. BACK: Nontender without deformity or crepitance. No flank tenderness. NEURO: AOx3. Stable gait. Cranial nerves grossly intact. Using all extremities. SKIN: No rash or erythema. Initial Vital Signs Initial Vital Signs: Vital Signs Temperature 97.8 F 09/11/18 11:19 Pulse Rate 72 09/11/18 11:19 Respiratory Rate 16 09/11/18 11:19 Blood Pressure 180/88 H 09/11/18 11:19 Pulse Oximetry 100 09/11/18 11:19 <Radha Kay DO - Last Filed: 09/11/18 16:47> Initial Vital Signs Initial Vital Signs: Vital Signs Temperature 97.8 F 09/11/18 11:19 Pulse Rate 72 09/11/18 11:19 Respiratory Rate 16 09/11/18 11:19 Blood Pressure 180/88 H 09/11/18 11:19 Pulse Oximetry 100 09/11/18 11:19 Course <Radha MarksVIRYP-BC - Last Filed: 09/11/18 16:25> Orders Ordered: ED Orders 09/11/18 11:38 EKG-12 Lead Stat 09/11/18 11:39 XR chest 1V Stat 09/11/18 12:00 Complete Blood Count AUTO DIFF Stat Comprehensive Metabolic Panel Stat Lipase Stat Partial Thromboplastin Time Stat Prothrombin Time INR Stat Troponin & CK Cardiac Panel Stat 09/11/18 12:57 US abdomen limited Stat 09/11/18 14:16 CT abdomen pelvis w con Stat Vital Signs - 8 hr 09/11/18 11:19 09/11/18 12:00 09/11/18 12:36 Temperature 97.8 F Pulse Rate 72 48 L 54 L Respiratory Rate 16 23 14 Blood Pressure 180/88 H Blood Pressure [Left Arm] 164/94 H 159/89 H Pulse Oximetry 100 100 99 09/11/18 14:52 09/11/18 15:45 Temperature Pulse Rate 58 L 60 Respiratory Rate 16 16 Blood Pressure 150/85 H Blood Pressure [Left Arm] 144/74 H Pulse Oximetry 100 99 <Radha Marilyn Kay DO - Last Filed: 09/11/18 16:47> Orders Ordered: ED Orders 09/11/18 11:38 EKG-12 Lead Stat 09/11/18 11:39 XR chest 1V Stat 09/11/18 12:00 Complete Blood Count AUTO DIFF Stat Comprehensive Metabolic Panel Stat Lipase Stat Partial Thromboplastin Time Stat Prothrombin Time INR Stat Troponin & CK Cardiac Panel Stat 09/11/18 12:57 US abdomen limited Stat 09/11/18 14:16 CT abdomen pelvis w con Stat Vital Signs - 8 hr 09/11/18 11:19 09/11/18 12:00 09/11/18 12:36 Temperature 97.8 F Pulse Rate 72 48 L 54 L Respiratory Rate 16 23 14 Blood Pressure 180/88 H Blood Pressure [Left Arm] 164/94 H 159/89 H Pulse Oximetry 100 100 99 09/11/18 14:52 09/11/18 15:45 Temperature Pulse Rate 58 L 60 Respiratory Rate 16 16 Blood Pressure 150/85 H Blood Pressure [Left Arm] 144/74 H Pulse Oximetry 100 99 MDM - Abdominal Pain <Radha Marks WATER PURIFIER OPERATOR-BC - Last Filed: 09/11/18 16:25> Lab Data Result diagrams: 09/11/18 12:00 09/11/18 12:00 Lab Results 09/11/18 09/11/18 09/11/18 Range/Units 12:00 12:00 12:00 WBC 6.2 (4.5-11.0) X10^3/uL RBC 4.38 (4.0-5.2) X10^6/uL Hgb 13.8 (12.0-16.0) g/dL Hct 40.8 (36-46) % MCV 93.0 (80-100) fL MCH 31.4 (26-34) PG MCHC 33.7 (30-36) % RDW 14.2 (11.6-14.8) % Plt Count 261 (150-400) X10^3/uL Neut % (Auto) 66.5 (50-75) % Lymph % (Auto) 23.8 L (25-40) % [place] % (Auto) 6.2 (3-14) % Eos % (Auto) 2.4 (2-4) % Baso % (Auto) 1.1 (0-2) % Neut # (Auto) 4200 (8567-4808) /uL Lymph # (Auto) 1500 (7911-7384) /uL [place] # (Auto) 400 (0-900) /uL Eos # (Auto) 100 (0-450) /uL Baso # (Auto) 100 (0-100) /uL PT 13.2 H (10.1-12.7) SECONDS INR 1.1 (0.9-1.3) APTT 35 (26.4-36.2) SECONDS Sodium 139 (137-145) mmol/L Potassium 4.0 (3.4-5.1) mmol/L Chloride 103 (98-107) mmol/L Carbon Dioxide 29 (22-32) mmol/L BUN 17 (7-17) mg/dL Creatinine 0.60 (0.52-1.04) mg/dL Estimated GFR > 60.0 (>60) mL/min BUN/Creatinine Ratio 28.3 H (6-22) Glucose 79 L (80-110) mg/dL Calcium 9.3 (8.4-10.2) mg/dL Total Bilirubin 0.6 (0.2-1.3) mg/dL AST 106 H (14-36) IU/L ALT 215 H (9-52) IU/L Alkaline Phosphatase 71 (38-126) U/L Total Creatine Kinase (30-135) U/L CK-MB (CK-2) (<2.37) ng/mL CK-MB (CK-2) Rel Index (1.5-5.0) % Troponin I (0.01-0.034) ng/mL Total Protein 7.0 (6.3-8.2) g/dL Albumin 4.3 (3.5-5.0) g/dL Globulin 2.7 (1.7-4.1) g/dL Albumin/Globulin Ratio 1.6 (1.0-2.8) Lipase 138 (23-300) U/L 09/11/18 Range/Units 12:00 WBC (4.5-11.0) X10^3/uL RBC (4.0-5.2) X10^6/uL Hgb (12.0-16.0) g/dL Hct (36-46) % MCV (80-100) fL MCH (26-34) PG MCHC (30-36) % RDW (11.6-14.8) % Plt Count (150-400) X10^3/uL Neut % (Auto) (50-75) % Lymph % (Auto) (25-40) % [place] % (Auto) (3-14) % Eos % (Auto) (2-4) % Baso % (Auto) (0-2) % Neut # (Auto) (4270-6431) /uL Lymph # (Auto) (6015-1695) /uL [place] # (Auto) (0-900) /uL Eos # (Auto) (0-450) /uL Baso # (Auto) (0-100) /uL PT (10.1-12.7) SECONDS INR (0.9-1.3) APTT (26.4-36.2) SECONDS Sodium (137-145) mmol/L Potassium (3.4-5.1) mmol/L Chloride (98-107) mmol/L Carbon Dioxide (22-32) mmol/L BUN (7-17) mg/dL Creatinine (0.52-1.04) mg/dL Estimated GFR (>60) mL/min BUN/Creatinine Ratio (6-22) Glucose (80-110) mg/dL Calcium (8.4-10.2) mg/dL Total Bilirubin (0.2-1.3) mg/dL AST (14-36) IU/L ALT (9-52) IU/L Alkaline Phosphatase (38-126) U/L Total Creatine Kinase 109 (30-135) U/L CK-MB (CK-2) 2.08 (<2.37) ng/mL CK-MB (CK-2) Rel Index 1.9 (1.5-5.0) % Troponin I < 0.012 (0.01-0.034) ng/mL Total Protein (6.3-8.2) g/dL Albumin (3.5-5.0) g/dL Globulin (1.7-4.1) g/dL Albumin/Globulin Ratio (1.0-2.8) Lipase (23-300) U/L Point of care testing: Urine Dip Bedside Urine Glucose Negative Bedside Urine Bilirubin - Negative Bedside Urine Ketone - Negative Urine Specific [place] 1.015 Bedside Urine Occult Blood - Negative Bedside Urine pH 7.5 Bedside Urine Protein - Negative Bedside Urine Urobilinogen - Negative Bedside Urine Nitrite - Negative Bedside Urine Leukocytes - Negative Esterase Imaging Data CT scan - abdomen: Radiologist's impression: [address] [address] [address] Scan Report Signed Patient: Lexus MoyaMR#: [id number] : 3Acct:[id number] Age/Sex: 77 / FDate of Service: 09/11/18 Loc: ED Accession Number: [id number] Procedure: CT abdomen pelvis w con Ordering Provider: Radha Marks WATER PURIFIER OPERATOR- PROCEDURE: CT ABDOMEN PELVIS W CON INDICATIONS: abd pain TECHNIQUE: After the administration of intravenous contrast, 5 mm thick sections acquired from the diaphragm to the symphysis. 5 mm coronal and sagittal reformats were acquired. For radiation dose reduction, the following was used: automated exposure control, adjustment of mA and/or kV according to patient size. COMPARISON: None. FINDINGS: Image quality: Excellent. ABDOMEN: Lung bases: Lung bases are clear. Heart size is normal. Solid organs: Liver is normal in size and enhancement. Gallbladder appears normal. Biliary system is non dilated. Pancreas enhances normally. Spleen is normal in size and enhancement. No adrenal nodules. Kidneys demonstrate normal size and enhancement, without hydronephrosis. Peritoneum and bowel: Bowel loops demonstrate normal wall thickness and caliber. No free fluid or air. Nodes and vessels: No retroperitoneal or mesenteric adenopathy by size criteria. Aorta and inferior vena cava are normal in size. Miscellaneous: No ventral hernias. PELVIS: Genitourinary: Bladder wall thickness is normal. Miscellaneous: No inguinal hernias or adenopathy. Bones: No suspicious bony lesions. No vertebral body compression fractures. IMPRESSION: Normal abdominal CT, normal pelvic CT, no sign of infection or neoplasm found. Bile ducts are normal in caliber, no urinary tract stone is seen. Please note that the gastric lumen is not fluid or air distended and no areas of gastritis or peptic ulcer disease is suspected. Dictated by: Raffi Olivo M.D. on 09/11/2018 at 14:42 Approved by: Raffi Olivo M.D. on 09/11/2018 at 14:44 US - abdomen: Radiologist's impression: [place] [address] Ultrasound Report Signed Patient: Lexus Moya#: [id number] : 3Acct:[id number] Age/Sex: 77 / FDate of Service: 09/11/18 Loc: ED Accession Number: [id number] Procedure: US abdomen limited Ordering Provider: Radha Marks PROCEDURE: US ABDOMEN LIMITED INDICATIONS: ELEVATED LFTS, PAIN UPPER ABDOMEN TECHNIQUE: Real-time focused scanning was performed of the abdomen, with image docu mentation. COMPARISON: [facility], , ABDOMEN LIMITED, 10/14/2016, 8:17. FINDINGS: Pancreas and liver appear normal, gallbladder appears normal with normal wall thickness. No biliary distention is found. IMPRESSION: Normal limited abdominal ultrasound, source of abnormal liver functi on tests is not seen. No source of pain is found. Depending on the clinical status followup by CT scanning may be warranted. Dictated by: Raffi Olivo M.D. on 09/11/2018 at 14:40 Approved by: Raffi Olivo M.D. on 09/11/2018 at 14:42 ECG Data Attestation: I personally reviewed and interpreted this ECG as follows: Interpretation: Sinus bradycardia. Ventricular rate 51. No ST elevation or depression noted. No ectopy noted. Viewed by Dr. Kay at 1135 MDM Narrative Medical decision making narrative: The patient is a 77-year-old female who presents with an episode of abdominal pain this morning, much improved upon arrival to the emergency department. She did have an EKG done, troponin drawn given her pain. Her troponin came back negative. Overall her CBC and CMP had no acute findings. Her LFTs are noted to be slightly elevated. I did obtain a ultrasound of her liver and gallbladder given her pain. This came back normal, so I obtained a CT scan which came back normal as well. I did discuss a trial of antacid medication, such as Protonix. However the patient declined any medications at this point time given that she is feeling much improved. I encouraged her to follow up with primary care provider. Discussed at length return precautions to the emergency department including chest pain, concern of heart attack or stroke. Patient and have no questions or concerns upon discharge <Radha Kay, - Last Filed: 09/11/18 16:47> Lab Data Lab Results 09/11/18 09/11/18 09/11/18 Range/Units 12:00 12:00 12:00 WBC 6.2 (4.5-11.0) X10^3/uL RBC 4.38 (4.0-5.2) X10^6/uL Hgb 13.8 (12.0-16.0) g/dL Hct 40.8 (36-46) % MCV 93.0 (80-100) fL MCH 31.4 (26-34) PG MCHC 33.7 (30-36) % RDW 14.2 (11.6-14.8) % Plt Count 261 (150-400) X10^3/uL Neut % (Auto) 66.5 (50-75) % Lymph % (Auto) 23.8 L (25-40) % [place] % (Auto) 6.2 (3-14) % Eos % (Auto) 2.4 (2-4) % Baso % (Auto) 1.1 (0-2) % Neut # (Auto) 4200 (0333-4504) /uL Lymph # (Auto) 1500 (1719-3478) /uL [place] # (Auto) 400 (0-900) /uL Eos # (Auto) 100 (0-450) /uL Baso # (Auto) 100 (0-100) /uL PT 13.2 H (10.1-12.7) SECONDS INR 1.1 (0.9-1.3) APTT 35 (26.4-36.2) SECONDS Sodium 139 (137-145) mmol/L Potassium 4.0 (3.4-5.1) mmol/L Chloride 103 (98-107) mmol/L Carbon Dioxide 29 (22-32) mmol/L BUN 17 (7-17) mg/dL Creatinine 0.60 (0.52-1.04) mg/dL Estimated GFR > 60.0 (>60) mL/min BUN/Creatinine Ratio 28.3 H (6-22) Glucose 79 L (80-110) mg/dL Calcium 9.3 (8.4-10.2) mg/dL Total Bilirubin 0.6 (0.2-1.3) mg/dL AST 106 H (14-36) IU/L ALT 215 H (9-52) IU/L Alkaline Phosphatase 71 (38-126) U/L Total Creatine Kinase (30-135) U/L CK-MB (CK-2) (<2.37) ng/mL CK-MB (CK-2) Rel Index (1.5-5.0) % Troponin I (0.01-0.034) ng/mL Total Protein 7.0 (6.3-8.2) g/dL Albumin 4.3 (3.5-5.0) g/dL Globulin 2.7 (1.7-4.1) g/dL Albumin/Globulin Ratio 1.6 (1.0-2.8) Lipase 138 (23-300) U/L 09/11/18 Range/Units 12:00 WBC (4.5-11.0) X10^3/uL RBC (4.0-5.2) X10^6/uL Hgb (12.0-16.0) g/dL Hct (36-46) % MCV (80-100) fL MCH (26-34) PG MCHC (30-36) % RDW (11.6-14.8) % Plt Count (150-400) X10^3/uL Neut % (Auto) (50-75) % Lymph % (Auto) (25-40) % [place] % (Auto) (3-14) % Eos % (Auto) (2-4) % Baso % (Auto) (0-2) % Neut # (Auto) (7041-4305) /uL Lymph # (Auto) (4959-6599) /uL [place] # (Auto) (0-900) /uL Eos # (Auto) (0-450) /uL Baso # (Auto) (0-100) /uL PT (10.1-12.7) SECONDS INR (0.9-1.3) APTT (26.4-36.2) SECONDS Sodium (137-145) mmol/L Potassium (3.4-5.1) mmol/L Chloride (98-107) mmol/L Carbon Dioxide (22-32) mmol/L BUN (7-17) mg/dL Creatinine (0.52-1.04) mg/dL Estimated GFR (>60) mL/min BUN/Creatinine Ratio (6-22) Glucose (80-110) mg/dL Calcium (8.4-10.2) mg/dL Total Bilirubin (0.2-1.3) mg/dL AST (14-36) IU/L ALT (9-52) IU/L Alkaline Phosphatase (38-126) U/L Total Creatine Kinase 109 (30-135) U/L CK-MB (CK-2) 2.08 (<2.37) ng/mL CK-MB (CK-2) Rel Index 1.9 (1.5-5.0) % Troponin I < 0.012 (0.01-0.034) ng/mL Total Protein (6.3-8.2) g/dL Albumin (3.5-5.0) g/dL Globulin (1.7-4.1) g/dL Albumin/Globulin Ratio (1.0-2.8) Lipase (23-300) U/L Point of care testing: Urine Dip Bedside Urine Glucose Negative Bedside Urine Bilirubin - Negative Bedside Urine Ketone - Negative Urine Specific [place] 1.015 Bedside Urine Occult Blood - Negative Bedside Urine pH 7.5 Bedside Urine Protein - Negative Bedside Urine Urobilinogen - Negative Bedside Urine Nitrite - Negative Bedside Urine Leukocytes - Negative Esterase Discharge Plan Departure Patient Disposition: Home Clinical Impression: Elevated alanine aminotransferase (ALT) level, Elevated AST (SGOT) Abdominal pain Qualifiers: Abdominal location: generalized Qualified Code(s): R10.84 - Generalized abdominal pain Discharge Date/Time: 09/11/18 15:45 Interventions: ED Discharge Assessment Last Done: 09/11/18 15:45 Instructions: DI for Abdominal Pain-Adult Activity Restrictions/Additional Instructions: Your workup today came back normal, including ultrasound and CT scan. Please follow up with her primary care provider in the next few days. Please come back to the emergency department for any acute concerns including chest pain, shortness of breath concern of heart attack or stroke. Please monitor your abdominal pain and come back to the ER if you have severe abdominal pain, especially with fever or inability keep down fluids. Prescriptions: No Action calcium carbonate 600 MG tablet 600 mg PO BID Qty: 0 RF: 0 clopidogrel [Plavix] 75 mg tablet 75 mg PO DAILY RF: 0 metoprolol tartrate 25 mg tablet 25 mg PO BID RF: 0 escitalopram oxalate [Lexapro] 5 mg tablet 5 mg PO DAILY RF: 0 rosuvastatin [Crestor] 20 mg tablet 10 mg PO QPM RF: 0 methotrexate sodium 2.5 mg tablet 15 mg PO PARKS RF: 0 Allerflo Nose Drops 2 spray intranasal QAM PRN (Reason: Allergy Symptoms) RF: 0 Allertec 1 tab PO DAILY PRN (Reason: Allergy Symptoms) RF: 0 folic acid 1 mg Tablet 1 mg PO MOTUWETHFRSA RF: 0 cholecalciferol (vitamin D3) [Vitamin D3] 2,000 unit Capsule 2,000 unit PO DAILY RF: 0 Referrals: Marely Sanchez DO [Primary Care Provider] - <Radha Kay DO - Last Filed: 09/11/18 16:47> Cosign ED Attending Cosignature Attestation: I was immediately available in the department for consultation. This documentation has been reviewed and I agree with assessment and plan. Supervised by Radha Kay, DO
== END 2018-09-11 15:45 | disposition home or self-care (01) ==
PROVIDERS: Emergency Medicine; Emergency Provider Nurse Practitioner Family; PCP Family Medicine
DX: R74.0 Nonspecific elevation of levels of transaminase and lactic acid dehydrogenase [LDH] (principal); R10.84 Generalized abdominal pain
CPT/HCPCS: 36591; 71045; 74177; 76705; 80053; 81003; 82550; 82553; 83690; 84484; 85025; 85610; 85730; 93005; 99283; 99285

== ENCOUNTER → 2018-09-22 11:18 | Outpatient (CLI) | payer MEDICARE, OTHER, SELFPAY ==
[2018-09-22 12:15] LABS: Add Manual Diff / Slide Review NO; Basophils Absolute Auto 100 /uL (0-100); Basophils Percent Auto 0.9 % (0-2); Eosinophils Absolute Auto 200 /uL (0-450); Eosinophils Percent Auto 3.2 % (2-4); Hematocrit 41.5 % (36-46); Hemoglobin 13.9 g/dL (12.0-16.0); Lymphocytes Absolute Auto 1500 /uL (1100-4500); Lymphocytes Percent Auto 23.3 % (25-40); Mean Corpuscular HGB Conc 33.4 % (30-36); Mean Corpuscular Hemoglobin 31.3 PG (26-34); Mean Corpuscular Volume 93.6 fL (80-100); Monocytes Absolute Auto 400 /uL (0-900); Monocytes Percent Auto 6.3 % (3-14); Neutrophils Absolute Auto 4300 /uL (1500-7000); Neutrophils Percent Auto 66.3 % (50-75); Platelet Count 251 X10^3/uL (150-400); Red Blood Cell Count 4.43 X10^6/uL (4.0-5.2); Red Cell Distribution Width 14.4 % (11.6-14.8); White Blood Cell Count 6.4 X10^3/uL (4.5-11.0)
[2018-09-22 12:45] LABS: HEMOLYSIS < 15 (0-50)
[2018-09-22 12:46] LABS: Alanine Aminotransferase 102 IU/L (9-52); Albumin 4.5 g/dL (3.5-5.0); Albumin Globulin Ratio 1.7 (1.0-2.8); Alkaline Phosphatase 70 U/L (38-126); Aspartate Aminotransferase 74 IU/L (14-36); BUN Creatinine Ratio 25.7 (6-22); Bilirubin Total 0.5 mg/dL (0.2-1.3); Blood Urea Nitrogen 18 mg/dL (7-17); Calcium 9.2 mg/dL (8.4-10.2); Carbon Dioxide 29 mmol/L (22-32); Chloride 105 mmol/L (98-107); Estimated Glomerular Filt Rate > 60.0 mL/min (>60); Globulin 2.7 g/dL (1.7-4.1); Glucose 92 mg/dL (80-110); Sodium 142 mmol/L (137-145); Total Protein 7.2 g/dL (6.3-8.2)
[2018-09-22 15:32] LABS: Potassium 4.1 mmol/L (3.4-5.1)
== END ==
PROVIDERS: PCP Family Medicine; Visit Provider Internal Medicine Rheumatology
DX: M05.79 Rheumatoid arthritis with rheumatoid factor of multiple sites without organ or systems involvement (principal); Z79.899 Other long term (current) drug therapy
CPT/HCPCS: 36415; 80053; 85025

== ENCOUNTER → 2018-10-09 14:36 | Outpatient (CLI) | payer MEDICARE, OTHER, SELFPAY ==
[2018-10-09 15:53] LABS: Alanine Aminotransferase 39 IU/L (9-52); Albumin 4.1 g/dL (3.5-5.0); Albumin Globulin Ratio 1.9 (1.0-2.8); Alkaline Phosphatase 51 U/L (38-126); Aspartate Aminotransferase 28 IU/L (14-36); BUN Creatinine Ratio 24.3 (6-22); Bilirubin Total 0.5 mg/dL (0.2-1.3); Blood Urea Nitrogen 17 mg/dL (7-17); Calcium 9.4 mg/dL (8.4-10.2); Carbon Dioxide 29 mmol/L (22-32); Chloride 105 mmol/L (98-107); Estimated Glomerular Filt Rate > 60.0 mL/min (>60); Globulin 2.2 g/dL (1.7-4.1); Glucose 79 mg/dL (80-110); HEMOLYSIS < 15 (0-50); Sodium 142 mmol/L (137-145); Total Protein 6.3 g/dL (6.3-8.2)
[2018-10-09 15:58] LABS: Potassium 5.5 mmol/L (3.4-5.1)
== END ==
PROVIDERS: PCP Family Medicine; Visit Provider Internal Medicine Rheumatology
DX: M05.79 Rheumatoid arthritis with rheumatoid factor of multiple sites without organ or systems involvement (principal); Z79.899 Other long term (current) drug therapy
CPT/HCPCS: 36415; 80053

== ENCOUNTER → 2018-10-14 13:24 | Outpatient (CLI) | payer MEDICARE, OTHER, SELFPAY ==
[2018-10-14 15:05] LABS: HEMOLYSIS < 15 (0-50); Potassium 4.8 mmol/L (3.4-5.1)
== END ==
PROVIDERS: PCP Family Medicine; Visit Provider Family Medicine
DX: E87.5 Hyperkalemia (principal)
CPT/HCPCS: 36415; 84132

== ENCOUNTER → 2018-11-17 09:49 | Outpatient (CLI) | payer MEDICARE, OTHER, SELFPAY ==
--- NOTE | 2018-11-17 | DI.MG.S_ITS ---
BILATERAL DIGITAL SCREENING MAMMOGRAM 3D/2D WITH CAD: 11/17/2018 CLINICAL: Routine screening. Comparison is made to exams dated: 09/12/2017 mammogram, 08/14/2016 mammogram - [facility], and 06/13/2015 mammogram - [facility]. The tissue of both breasts is heterogeneously dense. This may lower the sensitivity of mammography. Current study was also evaluated with a Computer Aided Detection (CAD) system. No significant masses, calcifications, or other findings are seen in either breast. There has been no significant interval change. IMPRESSION: NEGATIVE There is no mammographic evidence of malignancy. A 1 year screening mammogram is recommended. This exam was interpreted at Station ID: [id number]. NOTE: For mammograms, a report in lay terms will be sent to the patient. Approximately 15% of breast malignancies will not be visualized mammographically. In the management of a palpable breast mass, a negative mammogram must not discourage biopsy of a clinically suspicious lesion. Electronically Signed By: Tray randall/john:11/17/2018 13:09:52 letter sent: Normal Exam ACR BI-RADS Category 1: Negative [id number]
== END ==
PROVIDERS: PCP Family Medicine; Visit Provider Family Medicine
DX: Z12.31 Encounter for screening mammogram for malignant neoplasm of breast (principal)
CPT/HCPCS: 77063; 77067

== ENCOUNTER → 2018-11-27 09:36 | Outpatient (CLI) | payer MEDICARE, OTHER, SELFPAY ==
[2018-11-27 10:57] LABS: Alanine Aminotransferase 60 IU/L (9-52); Albumin Globulin Ratio 1.7 (1.0-2.8); Alkaline Phosphatase 44 U/L (38-126); Aspartate Aminotransferase 40 IU/L (14-36); BUN Creatinine Ratio 25.7 (6-22); Bilirubin Total 0.6 mg/dL (0.2-1.3); Blood Urea Nitrogen 18 mg/dL (7-17); Calcium 9.6 mg/dL (8.4-10.2); Carbon Dioxide 29 mmol/L (22-32); Chloride 104 mmol/L (98-107); Estimated Glomerular Filt Rate > 60.0 mL/min (>60); Globulin 2.3 g/dL (1.7-4.1); HEMOLYSIS < 15 (0-50); Potassium 4.3 mmol/L (3.4-5.1); Sodium 142 mmol/L (137-145); Total Protein 6.3 g/dL (6.3-8.2)
[2018-11-27 11:07] LABS: Glucose 41 mg/dL (80-110)
== END ==
PROVIDERS: PCP Family Medicine; Visit Provider Internal Medicine Rheumatology
DX: M05.79 Rheumatoid arthritis with rheumatoid factor of multiple sites without organ or systems involvement (principal); Z79.899 Other long term (current) drug therapy; R94.5 Abnormal results of liver function studies
CPT/HCPCS: 36415; 80053

== ENCOUNTER → 2018-12-03 13:17 | Outpatient (CLI) | payer MEDICARE, OTHER, SELFPAY ==
[2018-12-05 16:55] LABS: Fecal Immunochemical Test NOT DETECTED (NOT DETECTED)
== END ==
PROVIDERS: PCP Family Medicine; Visit Provider Family Medicine
DX: Z12.11 Encounter for screening for malignant neoplasm of colon (principal)
CPT/HCPCS: 82274

== ENCOUNTER → 2018-12-10 09:48 | Outpatient (CLI) | payer MEDICARE, OTHER, SELFPAY ==
[2018-12-10 15:57] LABS: Alanine Aminotransferase 32 IU/L (9-52); Albumin Globulin Ratio 1.5 (1.0-2.8); Alkaline Phosphatase 42 U/L (38-126); Aspartate Aminotransferase 35 IU/L (14-36); BUN Creatinine Ratio 28.6 (6-22); Bilirubin Total 0.5 mg/dL (0.2-1.3); Blood Urea Nitrogen 20 mg/dL (7-17); Calcium 9.2 mg/dL (8.4-10.2); Carbon Dioxide 28 mmol/L (22-32); Chloride 101 mmol/L (98-107); Estimated Glomerular Filt Rate > 60.0 mL/min (>60); Globulin 2.6 g/dL (1.7-4.1); Glucose 78 mg/dL (80-110); HEMOLYSIS < 15 (0-50); Potassium 3.8 mmol/L (3.4-5.1); Sodium 136 mmol/L (137-145); Total Protein 6.6 g/dL (6.3-8.2)
== END ==
PROVIDERS: PCP Family Medicine; Visit Provider Internal Medicine Rheumatology
DX: M05.79 Rheumatoid arthritis with rheumatoid factor of multiple sites without organ or systems involvement (principal); Z79.899 Other long term (current) drug therapy; R94.5 Abnormal results of liver function studies
CPT/HCPCS: 36415; 80053

== ENCOUNTER → 2019-01-08 10:03 | Outpatient (CLI) | payer MEDICARE, OTHER, SELFPAY ==
[2019-01-08 10:59] LABS: Add Manual Diff / Slide Review NO; Basophils Absolute Auto 0 /uL (0-100); Basophils Percent Auto 0.9 % (0-2); Eosinophils Absolute Auto 100 /uL (0-450); Eosinophils Percent Auto 2.1 % (2-4); Hematocrit 40.4 % (36-46); Hemoglobin 13.7 g/dL (12.0-16.0); Lymphocytes Absolute Auto 1100 /uL (1100-4500); Lymphocytes Percent Auto 22.9 % (25-40); Monocytes Absolute Auto 400 /uL (0-900); Monocytes Percent Auto 8.1 % (3-14); Neutrophils Absolute Auto 3000 /uL (1500-7000); Platelet Count 249 X10^3/uL (150-400); Red Cell Distribution Width 13.8 % (11.6-14.8); White Blood Cell Count 4.6 X10^3/uL (4.5-11.0)
[2019-01-08 11:52] LABS: Alanine Aminotransferase 38 IU/L (9-52); Albumin 4.3 g/dL (3.5-5.0); Albumin Globulin Ratio 1.6 (1.0-2.8); Alkaline Phosphatase 46 U/L (38-126); Aspartate Aminotransferase 32 IU/L (14-36); BUN Creatinine Ratio 27.5 (6-22); Bilirubin Total 0.5 mg/dL (0.2-1.3); Blood Urea Nitrogen 22 mg/dL (7-17); Carbon Dioxide 29 mmol/L (22-32); Chloride 101 mmol/L (98-107); Estimated Glomerular Filt Rate > 60.0 mL/min (>60); Globulin 2.7 g/dL (1.7-4.1); HEMOLYSIS < 15 (0-50); Sodium 138 mmol/L (137-145)
[2019-01-08 12:12] LABS: Glucose 45 mg/dL (80-110)
== END ==
PROVIDERS: PCP Family Medicine; Visit Provider Family Medicine
DX: Z79.899 Other long term (current) drug therapy (principal); M05.79 Rheumatoid arthritis with rheumatoid factor of multiple sites without organ or systems involvement
CPT/HCPCS: 36415; 80053; 85025

== ENCOUNTER → 2019-02-18 07:26 | Outpatient (CLI) | payer MEDICARE, OTHER, SELFPAY ==
[2019-02-18 08:02] LABS: Add Manual Diff / Slide Review NO; Basophils Absolute Auto 100 /uL (0-100); Basophils Percent Auto 1.3 % (0-2); Eosinophils Absolute Auto 100 /uL (0-450); Eosinophils Percent Auto 3.3 % (2-4); Hematocrit 41.4 % (36-46); Hemoglobin 14.4 g/dL (12.0-16.0); Lymphocytes Absolute Auto 1500 /uL (1100-4500); Lymphocytes Percent Auto 34.7 % (25-40); Mean Corpuscular HGB Conc 34.9 % (30-36); Mean Corpuscular Hemoglobin 32.5 PG (26-34); Mean Corpuscular Volume 93.1 fL (80-100); Monocytes Absolute Auto 300 /uL (0-900); Monocytes Percent Auto 7.9 % (3-14); Neutrophils Absolute Auto 2300 /uL (1500-7000); Neutrophils Percent Auto 52.8 % (50-75); Platelet Count 250 X10^3/uL (150-400); Red Blood Cell Count 4.44 X10^6/uL (4.0-5.2); White Blood Cell Count 4.3 X10^3/uL (4.5-11.0)
[2019-02-18 08:13] LABS: Alanine Aminotransferase 41 IU/L (<35); Albumin 4.3 g/dL (3.5-5.0); Albumin Globulin Ratio 1.7 (1.0-2.8); Alkaline Phosphatase 45 U/L (38-126); Aspartate Aminotransferase 40 IU/L (14-36); BUN Creatinine Ratio 32.2 (6-22); Bilirubin Total 0.6 mg/dL (0.2-1.3); Blood Urea Nitrogen 29 mg/dL (7-17); Calcium 9.5 mg/dL (8.4-10.2); Carbon Dioxide 30 mmol/L (22-32); Chloride 106 mmol/L (98-107); Cholesterol 156 mg/dL (140-199); Estimated Glomerular Filt Rate > 60.0 mL/min (>60); Globulin 2.6 g/dL (1.7-4.1); Glucose 90 mg/dL (80-110); HDL Cholesterol 81 mg/dL (40-60); HEMOLYSIS < 15 (0-50); LDL Cholesterol Calculated 67 mg/dL (<100); Potassium 4.2 mmol/L (3.4-5.1); Sodium 142 mmol/L (137-145); Total Protein 6.9 g/dL (6.3-8.2); Triglycerides 40 mg/dL (35-150)
== END ==
PROVIDERS: PCP Family Medicine; Visit Provider Internal Medicine Rheumatology
DX: M05.79 Rheumatoid arthritis with rheumatoid factor of multiple sites without organ or systems involvement (principal); Z79.899 Other long term (current) drug therapy; R94.5 Abnormal results of liver function studies; E78.5 Hyperlipidemia, unspecified
CPT/HCPCS: 36415; 80053; 80061; 85025

== ENCOUNTER → 2019-03-02 12:44 | Outpatient (CLI) | payer MEDICARE, OTHER, SELFPAY ==
[2019-03-02 13:22] LABS: Alanine Aminotransferase 35 IU/L (<35); Albumin 4.5 g/dL (3.5-5.0); Albumin Globulin Ratio 1.8 (1.0-2.8); Alkaline Phosphatase 45 U/L (38-126); Aspartate Aminotransferase 31 IU/L (14-36); BUN Creatinine Ratio 26.3 (6-22); Bilirubin Total 0.5 mg/dL (0.2-1.3); Blood Urea Nitrogen 21 mg/dL (7-17); Calcium 9.4 mg/dL (8.4-10.2); Carbon Dioxide 31 mmol/L (22-32); Chloride 103 mmol/L (98-107); Estimated Glomerular Filt Rate > 60.0 mL/min (>60); Globulin 2.5 g/dL (1.7-4.1); Glucose 83 mg/dL (80-110); HEMOLYSIS < 15 (0-50); Sodium 141 mmol/L (137-145)
== END ==
PROVIDERS: PCP Family Medicine; Visit Provider Internal Medicine Rheumatology
DX: R74.8 Abnormal levels of other serum enzymes (principal)
CPT/HCPCS: 36415; 80053

== ENCOUNTER → 2019-04-05 13:25 | Outpatient (CLI) | payer MEDICARE, OTHER, SELFPAY ==
[2019-04-05 13:52] LABS: Add Manual Diff / Slide Review NO; Basophils Absolute Auto 100 /uL (0-100); Basophils Percent Auto 0.9 % (0-2); Eosinophils Absolute Auto 200 /uL (0-450); Hematocrit 42.2 % (36-46); Hemoglobin 14.4 g/dL (12.0-16.0); Lymphocytes Absolute Auto 1500 /uL (1100-4500); Lymphocytes Percent Auto 25.3 % (25-40); Mean Corpuscular HGB Conc 34.2 % (30-36); Mean Corpuscular Hemoglobin 32.1 PG (26-34); Mean Corpuscular Volume 93.8 fL (80-100); Monocytes Absolute Auto 400 /uL (0-900); Monocytes Percent Auto 7.2 % (3-14); Neutrophils Absolute Auto 3600 /uL (1500-7000); Neutrophils Percent Auto 63.6 % (50-75); Platelet Count 246 X10^3/uL (150-400); Red Cell Distribution Width 13.6 % (11.6-14.8); White Blood Cell Count 5.7 X10^3/uL (4.5-11.0)
[2019-04-05 14:14] LABS: Alanine Aminotransferase 39 IU/L (<35); Albumin 4.6 g/dL (3.5-5.0); Albumin Globulin Ratio 1.8 (1.0-2.8); Alkaline Phosphatase 53 U/L (38-126); Aspartate Aminotransferase 44 IU/L (14-36); BUN Creatinine Ratio 28.6 (6-22); Bilirubin Total 0.5 mg/dL (0.2-1.3); Blood Urea Nitrogen 20 mg/dL (7-17); Calcium 9.3 mg/dL (8.4-10.2); Carbon Dioxide 31 mmol/L (22-32); Chloride 102 mmol/L (98-107); Estimated Glomerular Filt Rate > 60.0 mL/min (>60); Globulin 2.5 g/dL (1.7-4.1); Glucose 89 mg/dL (80-110); HEMOLYSIS 26 (0-50); Sodium 140 mmol/L (137-145); Total Protein 7.1 g/dL (6.3-8.2)
== END ==
PROVIDERS: PCP Family Medicine; Visit Provider Internal Medicine Rheumatology
DX: M05.079 Felty's syndrome, unspecified ankle and foot (principal); Z79.899 Other long term (current) drug therapy
CPT/HCPCS: 36415; 80053; 85025

== ENCOUNTER → 2019-04-28 10:00 | Outpatient (CLI) | payer MEDICARE, OTHER, SELFPAY ==
[2019-04-28 11:11] LABS: Add Manual Diff / Slide Review NO; Basophils Absolute Auto 100 /uL (0-100); Basophils Percent Auto 1.1 % (0-2); Eosinophils Absolute Auto 100 /uL (0-450); Eosinophils Percent Auto 2.6 % (2-4); Hematocrit 42.8 % (36-46); Hemoglobin 14.5 g/dL (12.0-16.0); Lymphocytes Absolute Auto 1300 /uL (1100-4500); Lymphocytes Percent Auto 23.1 % (25-40); Mean Corpuscular HGB Conc 33.8 % (30-36); Mean Corpuscular Hemoglobin 31.8 PG (26-34); Mean Corpuscular Volume 94.2 fL (80-100); Monocytes Absolute Auto 300 /uL (0-900); Monocytes Percent Auto 5.9 % (3-14); Neutrophils Absolute Auto 3800 /uL (1500-7000); Neutrophils Percent Auto 67.3 % (50-75); Platelet Count 238 X10^3/uL (150-400); Red Blood Cell Count 4.55 X10^6/uL (4.0-5.2); Red Cell Distribution Width 13.2 % (11.6-14.8); White Blood Cell Count 5.6 X10^3/uL (4.5-11.0)
[2019-04-28 11:21] LABS: Alanine Aminotransferase 28 IU/L (<35); Albumin 4.4 g/dL (3.5-5.0); Albumin Globulin Ratio 1.6 (1.0-2.8); Alkaline Phosphatase 49 U/L (38-126); Aspartate Aminotransferase 31 IU/L (14-36); BUN Creatinine Ratio 23.8 (6-22); Bilirubin Total 0.6 mg/dL (0.2-1.3); Blood Urea Nitrogen 19 mg/dL (7-17); Calcium 9.3 mg/dL (8.4-10.2); Carbon Dioxide 29 mmol/L (22-32); Chloride 104 mmol/L (98-107); Estimated Glomerular Filt Rate > 60.0 mL/min (>60); Globulin 2.8 g/dL (1.7-4.1); Glucose 70 mg/dL (80-110); HEMOLYSIS < 15 (0-50); Potassium 3.8 mmol/L (3.4-5.1); Sodium 142 mmol/L (137-145); Total Protein 7.2 g/dL (6.3-8.2)
== END ==
PROVIDERS: Family Provider Family Medicine; PCP Family Medicine; Visit Provider Internal Medicine Rheumatology
DX: M05.79 Rheumatoid arthritis with rheumatoid factor of multiple sites without organ or systems involvement (principal); Z79.899 Other long term (current) drug therapy; R94.5 Abnormal results of liver function studies
CPT/HCPCS: 36415; 80053; 85025

== ENCOUNTER → 2019-07-19 14:08 | Outpatient (CLI) | payer MEDICARE, OTHER, SELFPAY ==
[2019-07-19 14:33] LABS: Add Manual Diff / Slide Review NO; Basophils Absolute Auto 0 /uL (0-100); Basophils Percent Auto 0.8 % (0-2); Eosinophils Absolute Auto 100 /uL (0-450); Eosinophils Percent Auto 1.7 % (2-4); Hematocrit 40.5 % (36-46); Hemoglobin 13.7 g/dL (12.0-16.0); Lymphocytes Absolute Auto 1300 /uL (1100-4500); Lymphocytes Percent Auto 29.6 % (25-40); Mean Corpuscular HGB Conc 33.8 % (30-36); Mean Corpuscular Hemoglobin 31.9 PG (26-34); Mean Corpuscular Volume 94.5 fL (80-100); Monocytes Absolute Auto 400 /uL (0-900); Monocytes Percent Auto 8.4 % (3-14); Neutrophils Absolute Auto 2700 /uL (1500-7000); Neutrophils Percent Auto 59.5 % (50-75); Platelet Count 227 X10^3/uL (150-400); Red Blood Cell Count 4.28 X10^6/uL (4.0-5.2); Red Cell Distribution Width 13.4 % (11.6-14.8); White Blood Cell Count 4.5 X10^3/uL (4.5-11.0)
[2019-07-19 15:41] LABS: Alanine Aminotransferase 23 IU/L (<35); Albumin 4.2 g/dL (3.5-5.0); Albumin Globulin Ratio 1.8 (1.0-2.8); Alkaline Phosphatase 39 U/L (38-126); Aspartate Aminotransferase 27 IU/L (14-36); BUN Creatinine Ratio 25.9 (6-22); Bilirubin Total 0.4 mg/dL (0.2-1.3); Blood Urea Nitrogen 22 mg/dL (7-17); Calcium 9.9 mg/dL (8.4-10.2); Carbon Dioxide 28 mmol/L (22-32); Chloride 104 mmol/L (98-107); Estimated Glomerular Filt Rate > 60.0 mL/min (>60); Globulin 2.4 g/dL (1.7-4.1); Glucose 114 mg/dL (80-110); HEMOLYSIS < 15 (0-50); Potassium 4.6 mmol/L (3.4-5.1); Sodium 139 mmol/L (137-145); Total Protein 6.6 g/dL (6.3-8.2)
== END ==
PROVIDERS: Family Provider Family Medicine; PCP Family Medicine; Referring Provider Internal Medicine Rheumatology; Visit Provider Internal Medicine Rheumatology
DX: M05.29 Rheumatoid vasculitis with rheumatoid arthritis of multiple sites (principal); Z79.899 Other long term (current) drug therapy
CPT/HCPCS: 36415; 80053; 85025

== ENCOUNTER → 2019-07-26 09:04 | Outpatient (CLI) | payer MEDICARE, OTHER, SELFPAY ==
--- NOTE | 2019-07-26 | DI.RAD.S_ITS ---
PROCEDURE: XR SHOULDER RT MIN 2V INDICATIONS: RIGHT SHOULDER PAIN TECHNIQUE: 3 views of the shoulder were acquired. COMPARISON: MR, UP EXT WITH, 07/27/2007, 9:32. FINDINGS: Bones: No fractures or dislocations. No suspicious bony lesions. Visualized ribs appear intact. High riding appearance of the humeral head is noted. Moderate to severe acromioclavicular degenerative narrowing. Soft tissues: No suspicious soft tissue calcifications. IMPRESSION: 1. High riding appearance of the humeral head, which can be indicative of rotator cuff pathology. 2. Moderate to severe acromioclavicular degenerative narrowing. Dictated by: Mary Craig M.D. on 07/26/2019 at 9:28 Approved by: Mary Craig M.D. on 07/26/2019 at 9:29
== END ==
PROVIDERS: Family Provider Family Medicine; PCP Family Medicine; Referring Provider Internal Medicine Rheumatology; Visit Provider Internal Medicine Rheumatology
DX: M25.511 Pain in right shoulder (principal); M05.79 Rheumatoid arthritis with rheumatoid factor of multiple sites without organ or systems involvement; M19.011 Primary osteoarthritis, right shoulder
CPT/HCPCS: 73030

== ENCOUNTER → 2019-08-02 09:04 | Outpatient (CLI) | payer MEDICARE, OTHER, SELFPAY ==
--- NOTE | 2019-08-02 | DI.MRI.S_ITS ---
PROCEDURE: MR SHOULDER RT WO CON INDICATIONS: Pain in right shoulder TECHNIQUE: Noncontrast oblique coronal T2 fast spin echo with fat saturation, oblique sagittal T1 spin echo and T2 fast spin echo with fat saturation, axial T1 spin echo and T2 fast spin echo with fat saturation through the shoulder. COMPARISON: None. FINDINGS: Image quality: Excellent. Rotator cuff: There is full-thickness tearing of the entire supraspinatus tendon, which demonstrates medial retraction and atrophy. There is full-thickness tearing of the anterior infraspinatus tendon at the humeral insertion site. There is moderate grade partial-thickness intrasubstance tearing of the mid/posterior infraspinatus tendon at the muscular tendinous junction, with low-grade partial-thickness tearing extending to the humeral insertion site. There is mild infraspinatus atrophy. Teres minor is intact. Subscapularis tendon demonstrates moderate T2 signal elevation at the humeral insertion site, indicating tendinopathy without evidence of tearing. Bones and bursae: No bone marrow contusions or fractures. Moderate acromioclavicular joint degeneration. The acromion demonstrates conventional anatomy, without an os acromiale. Moderate subacromial-subdeltoid or subcoracoid bursal fluid is present. Moderate glenohumeral joint effusion. Capsule and soft tissues: Ill-defined high T2 signal intensity within the posterior labrum and inferior labrum, indicating labral tearing. The long head of the biceps tendon demonstrates normal location and moderate grade partial-thickness tearing. The rotator interval appears normal, without fibrosis. The coracohumeral ligament is normal in thickness. IMPRESSION: 1. Full-thickness tearing of the subscapularis tendon which demonstrates medial retraction and atrophy. 2. Full thickness tearing of the anterior infraspinatus tendon. Partial-thickness tearing of the mid/posterior per spinous tendon. Mild infraspinatus atrophy. 3. Subscapularis tendinopathy without tear. 4. Partial-thickness biceps tendon tearing. 5. Glenoid labral tearing. 6. Acromioclavicular joint osteoarthritis. 7. Subacromial bursitis. 8. Glenohumeral joint effusion. Dictated by: Chata Swann M.D. on 08/02/2019 at 10:06 Approved by: Chata Swann M.D. on 08/02/2019 at 10:10
== END ==
PROVIDERS: Family Provider Family Medicine; PCP Family Medicine; Referring Provider Internal Medicine Rheumatology; Visit Provider Internal Medicine Rheumatology
DX: M25.511 Pain in right shoulder (principal); M75.121 Complete rotator cuff tear or rupture of right shoulder, not specified as traumatic; S46.111A Strain of muscle, fascia and tendon of long head of biceps, right arm, initial encounter; S43.491A Other sprain of right shoulder joint, initial encounter; M19.011 Primary osteoarthritis, right shoulder; M75.51 Bursitis of right shoulder; M25.411 Effusion, right shoulder
CPT/HCPCS: 73221

== ENCOUNTER → 2019-09-15 09:53 | Outpatient (CLI) | payer MEDICARE, OTHER, SELFPAY ==
[2019-09-15 11:42] LABS: Add Manual Diff / Slide Review NO; Basophils Absolute Auto 100 /uL (0-100); Basophils Percent Auto 1.2 % (0-2); Eosinophils Absolute Auto 100 /uL (0-450); Eosinophils Percent Auto 2.7 % (2-4); Hematocrit 39.2 % (36-46); Hemoglobin 13.6 g/dL (12.0-16.0); Lymphocytes Absolute Auto 1300 /uL (1100-4500); Lymphocytes Percent Auto 28.5 % (25-40); Mean Corpuscular HGB Conc 34.8 % (30-36); Mean Corpuscular Hemoglobin 32.9 PG (26-34); Mean Corpuscular Volume 94.4 fL (80-100); Monocytes Absolute Auto 400 /uL (0-900); Monocytes Percent Auto 9.6 % (3-14); Neutrophils Absolute Auto 2600 /uL (1500-7000); Platelet Count 228 X10^3/uL (150-400); Red Blood Cell Count 4.15 X10^6/uL (4.0-5.2); Red Cell Distribution Width 13.2 % (11.6-14.8); White Blood Cell Count 4.6 X10^3/uL (4.5-11.0)
[2019-09-15 12:20] LABS: Alanine Aminotransferase 34 IU/L (<35); Albumin 4.1 g/dL (3.5-5.0); Albumin Globulin Ratio 1.9 (1.0-2.8); Alkaline Phosphatase 43 U/L (38-126); Aspartate Aminotransferase 36 IU/L (14-36); BUN Creatinine Ratio 30.8 (6-22); Bilirubin Total 0.7 mg/dL (0.2-1.3); Blood Urea Nitrogen 24 mg/dL (7-17); Calcium 9.5 mg/dL (8.4-10.2); Carbon Dioxide 28 mmol/L (22-32); Chloride 105 mmol/L (98-107); Estimated Glomerular Filt Rate > 60.0 mL/min (>60); Globulin 2.2 g/dL (1.7-4.1); Glucose 88 mg/dL (80-110); HEMOLYSIS < 15 (0-50); Potassium 4.7 mmol/L (3.4-5.1); Sodium 139 mmol/L (137-145); Total Protein 6.3 g/dL (6.3-8.2)
== END ==
PROVIDERS: Family Provider Family Medicine; PCP Family Medicine; Referring Provider Internal Medicine Rheumatology; Visit Provider Internal Medicine Rheumatology
DX: M05.29 Rheumatoid vasculitis with rheumatoid arthritis of multiple sites (principal); Z79.899 Other long term (current) drug therapy
CPT/HCPCS: 36415; 80053; 85025

== ENCOUNTER → 2019-10-11 11:53 | Outpatient (CLI) | payer MEDICARE, OTHER, SELFPAY ==
--- NOTE | 2019-10-11 11:54 | DI.US.S_ITS ---
PROCEDURE: US ABDOMEN LIMITED INDICATIONS: RIGHT INGUINAL LUMP; HISTORY LEFT INGUINAL HERNIA TECHNIQUE: Real-time focused scanning was performed of the inguinal region, with image documentation. COMPARISON: [facility], , ABDOMEN LIMITED, 09/11/2018, 14:00. [facility], ABDOMEN LIMITED, 10/14/2016, 8:17. FINDINGS: A bowel containing right lower quadrant body wall hernia is present on the right adjacent to the symphysis pubis. In this area there is a 4.2 x 2.5 x 3.6 cm peristalsing bowel structure which appears to potentially represent a paramedian ventral hernia rather than a definite inguinal hernia by sonographic appearance. IMPRESSION: The herniation present associated with the mass-like structure near the right symphysis pubis appears to represent a body wall hernia in that area more likely than a medial-directed inguinal hernia. CT scanning appears warranted for most accurate anatomic delineation of the type of hernia present in this circumstance. Dictated by: Raffi Olivo M.D. on 10/11/2019 at 13:47 Approved by: Raffi Olivo M.D. on 10/11/2019 at 13:49
== END ==
PROVIDERS: Family Provider Family Medicine; PCP Family Medicine; Referring Provider Obstetrics & Gynecology; Visit Provider Obstetrics & Gynecology
DX: K40.30 Unilateral inguinal hernia, with obstruction, without gangrene, not specified as recurrent (principal)
CPT/HCPCS: 76705

== ENCOUNTER → 2019-11-20 10:33 | Outpatient (CLI) | payer MEDICARE, OTHER, SELFPAY ==
--- NOTE | 2019-11-20 10:37 | DI.MG.S_ITS ---
BILATERAL DIGITAL SCREENING MAMMOGRAM 3D/2D WITH CAD: 11/20/2019 CLINICAL: Routine screening. Comparison is made to exams dated: 11/17/2018 mammogram, 09/12/2017 mammogram, and 08/14/2016 mammogram - [facility]. The tissue of both breasts is heterogeneously dense. This may lower the sensitivity of mammography. Current study was also evaluated with a Computer Aided Detection (CAD) system. No significant masses, calcifications, or other findings are seen in either breast. There has been no significant interval change. IMPRESSION: NEGATIVE There is no mammographic evidence of malignancy. A 1 year screening mammogram is recommended. This exam was interpreted at Station ID: [id number]. NOTE: For mammograms, a report in lay terms will be sent to the patient. Approximately 15% of breast malignancies will not be visualized mammographically. In the management of a palpable breast mass, a negative mammogram must not discourage biopsy of a clinically suspicious lesion. Electronically Signed By: Tray randall/john:11/22/2019 07:40:07 letter sent: Normal Exam ACR BI-RADS Category 1: Negative [id number]
== END ==
PROVIDERS: Family Provider Family Medicine; PCP Family Medicine; Referring Provider Family Medicine; Visit Provider Family Medicine
DX: Z12.31 Encounter for screening mammogram for malignant neoplasm of breast (principal)
CPT/HCPCS: 77063; 77067

== ENCOUNTER → 2019-12-09 10:14 | Outpatient (CLI) | payer MEDICARE, OTHER, SELFPAY ==
[2019-12-09 11:14] LABS: Add Manual Diff / Slide Review NO; Basophils Absolute Auto 0 /uL (0-100); Basophils Percent Auto 0.8 % (0-2); Eosinophils Absolute Auto 200 /uL (0-450); Eosinophils Percent Auto 2.6 % (2-4); Hematocrit 42.9 % (36-46); Hemoglobin 14.6 g/dL (12.0-16.0); Lymphocytes Absolute Auto 1700 /uL (1100-4500); Lymphocytes Percent Auto 28.1 % (25-40); Mean Corpuscular Hemoglobin 32.3 PG (26-34); Mean Corpuscular Volume 94.8 fL (80-100); Monocytes Absolute Auto 500 /uL (0-900); Monocytes Percent Auto 8.8 % (3-14); Neutrophils Absolute Auto 3500 /uL (1500-7000); Neutrophils Percent Auto 59.7 % (50-75); Platelet Count 213 X10^3/uL (150-400); Red Blood Cell Count 4.52 X10^6/uL (4.0-5.2); Red Cell Distribution Width 12.7 % (11.6-14.8); White Blood Cell Count 5.9 X10^3/uL (4.5-11.0)
[2019-12-09 11:25] LABS: Alanine Aminotransferase 33 IU/L (<35); Albumin 4.3 g/dL (3.5-5.0); Albumin Globulin Ratio 1.6 (1.0-2.8); Alkaline Phosphatase 42 U/L (38-126); Aspartate Aminotransferase 35 IU/L (14-36); BUN Creatinine Ratio 25.7 (6-22); Bilirubin Total 0.6 mg/dL (0.2-1.3); Blood Urea Nitrogen 19 mg/dL (7-17); Calcium 9.2 mg/dL (8.4-10.2); Carbon Dioxide 31 mmol/L (22-32); Chloride 103 mmol/L (98-107); Estimated Glomerular Filt Rate > 60.0 mL/min (>60); Globulin 2.7 g/dL (1.7-4.1); Glucose 55 mg/dL (80-110); HEMOLYSIS 29 (0-50); Potassium 4.5 mmol/L (3.4-5.1); Sodium 139 mmol/L (137-145)
== END ==
PROVIDERS: Family Provider Family Medicine; PCP Family Medicine; Referring Provider Internal Medicine Rheumatology; Visit Provider Internal Medicine Rheumatology
DX: M05.79 Rheumatoid arthritis with rheumatoid factor of multiple sites without organ or systems involvement (principal); Z79.899 Other long term (current) drug therapy; M05.29 Rheumatoid vasculitis with rheumatoid arthritis of multiple sites
CPT/HCPCS: 36415; 80053; 85025

== ENCOUNTER → 2020-01-28 10:03 | Outpatient (CLI) | payer MEDICARE, OTHER, SELFPAY ==
[2020-01-29 01:32] LABS: COVID19 Sendout Not Detected (Not Detect)
== END ==
PROVIDERS: Family Provider Family Medicine; PCP Family Medicine; Visit Provider Physician Assistant
DX: Z11.59 Encounter for screening for other viral diseases (principal)
CPT/HCPCS: 87635

== ENCOUNTER 2020-01-31 09:45 | Day surgery (SDC) | payer MEDICARE, OTHER, SELFPAY ==
[2020-01-27 14:47] VITALS: BMI 21.2
[2020-01-31] VITALS (11 sets, daily range): BP systolic 108–143; BP diastolic 50–78; PULSE 53–64; RESP 12–17; TEMP 36.6–36.8; O2SAT 95–100; BMI 20.8
[2020-01-31] MEDS: LACTATED RINGERS 1,000 ML 42 ML IV (10:16)
--- NOTE | 2020-01-31 11:05 | PM.HP.1 ---
History of Present Illness History of Present Illness Date Patient Seen: 01/31/20 Time Patient Seen: 11:06 Chief complaint: SDC Narrative: The patient is a woman here for repair of a right inguinal hernia. She has had repair of the left side about 10 years ago. She has local symptoms. No nausea or vomiting. Patient History Medical History Actinic keratosis (Chronic) Chicken pox (Resolved) Fever (Chronic ~2001) Gout (Chronic ~2016) Hearing loss (Chronic) Herniated disc (Chronic ~2007) HLD (hyperlipidemia) (Acute) HTN (hypertension) (Acute) Measles (Resolved) Mumps (Resolved) Osteopenia (Chronic) Presence of pessary (Chronic ~2002) Rheumatoid arthritis (Chronic ~2016) Seasonal allergies (Chronic ~1949) Shoulder pain (Chronic) TIA (transient ischemic attack) (Resolved ~2018) Tinnitus (Chronic ~1949) Vision disorder (Chronic) Surgical History History of hernia repair (Resolved ~2011) History of repair of ACL (Resolved ~1999) History of tubal ligation (Resolved ~1973) Melanoma in situ (Resolved ~2007) Skin cancer, basal cell (Resolved ~2016) Family & Social History Family History Father No problems noted. Mother Hypertension Heart disease Sepsis Stroke Sister Hypertension Grandmother Stroke Grandmother Cancer Family/Other Myocardial infarction Social History: household members spouse Tobacco & Substance use: Smoking Status Never smoker alcohol intake current alcohol intake frequency holiday/special occasion Substance Use Type does not use Meds Home Medications and Allergies Home Medications Medication Instructions Recorded Confirmed Type cholecalciferol (vitamin D3) 2,000 unit PO DAILY 09/11/18 01/31/20 History [Vitamin D3] folic acid 1 mg PO DAILY 09/11/18 01/31/20 History estradiol 0.5 gram VAG .QHS #42.5 gram 11/26/18 01/31/20 Rx clopidogrel 75 mg tablet 75 mg PO DAILY #90 tab 05/13/19 01/31/20 Rx methotrexate sodium 2.5 mg tablet 7.5 mg PO PARKS tab 07/20/19 01/31/20 History calcium carbonate 600 mg calcium 600 mg PO DAILY #0 tab 07/22/19 01/31/20 History (1,500 mg) tablet hydroxychloroquine 200 mg tablet 200 mg PO BID 07/22/19 01/31/20 History rosuvastatin 20 mg tablet 10 mg PO QPM #45 tab 09/09/19 01/31/20 Rx metoprolol tartrate 25 mg tablet 25 mg PO BID #180 tab 10/07/19 01/31/20 Rx Allergies Allergy/AdvReac Type Severity Reaction Status Date / Time morphine AdvReac Mild ITCHING Verified 01/31/20 10:00 povidone-iodine AdvReac Mild Redness Verified 01/31/20 10:00 [From BETADINE] soap [From BETADINE] AdvReac Mild Redness Verified 01/31/20 10:00 Review of Systems Review of Systems Narrative: No cough cold or asthma. No chest pain or unusual shortness of breath. No black or bloody bowel movements. No seizures or blackouts. Exam Vital Signs (past 8 hours): - 01/31/20 10:07 Temperature 98.2 F Pulse Rate 62 Respiratory Rate 14 Blood Pressure 143/78 H Pulse Oximetry 100 Oxygen Delivery Method Room Air Narrative Exam Narrative: Alert cooperative in no apparent distress vitals are noted. Eyes are nonicteric. Lungs are clear to auscultation without rales or rhonchi. Heart regular rate and rhythm without murmur gallop. Lungs (equally bilaterally. Abdomen is scaphoid soft nontender without mass. Has a reducible right inguinal hernia. Skin overlying it is normal in appearance without rash her inflammation. Assessment & Plan Assessment & Plan narrative: Right inguinal hernia for repair. She stopped her Plavix 10 days ago is instructed. She does have a history of a TIA. I have discussed the operation with her including risks of bleeding, infection, recurrence in the past. She did not want me to discuss it with her today. She says she is just too nervous and just wants to know she will be put to sleep in wake up in be relatively pain-free.
--- NOTE | 2020-01-31 11:10 | PM.PREOP ---
Pre-operative Note COVID-19 COVID-19 status: Negative Result date/Date tested (Pos, Neg/Pending): 01/28/20 Interval Note History & Physical reviewed/Exam performed by Physician: Yes Changes to H&P: No
[2020-01-31] MEDS: CEFAZOLIN 2 GM/100 ML FROZ.PIGGY IV (11:20)
--- NOTE | 2020-01-31 11:38 | SUR.OPER ---
Supine on padded OR bed, head on pillow, arms secured on padded arm boards at <90 degrees abduction, legs uncrossed, safety belt at thigh, tape over blanket over lower legs.
[2020-01-31] MEDS: BUPIVACAINE 0.5% (PF) VIAL 30 ML INJ (11:43)
--- NOTE | 2020-01-31 12:36 | PM.OP.1 ---
Operative Date/Time/Diagnoses Date of procedure: 01/31/20 Time of procedure: 12:36 Pre-op diagnosis: Right inguinal hernia reducible Post-op diagnosis: same (Indirect) Procedure & Clinicians Procedure: Repair with plug and patch technique using lightweight mesh. Same procedure as scheduled: Yes Indications: Symptomatic right inguinal hernia Surgeon: Michael Johns Click Yes if Unassisted: Yes Anesthesia Type: General Operative Notes Findings: Indirect sac. Closure Type: primary Specimen(s): none sent Prosthetic devices, grafts, tissues, transplants, or devices: Light weight medium plug and patch permanent mesh Estimated Blood Loss (mL): 5 Blood products transfused: none Procedure in detail: The patient is placed supine on the operating room table underwent general LMA anesthesia. She was prepped and draped in the usual fashion. Local anesthetic was infiltrated and a curvilinear incision made overlying the internal ring. It was carried down level the external oblique. The external oblique was opened parallel with its fibers through the external ring. I dissected the sac and ligament off of the pubic tubercle released them and opened the sac and was found to have no contents. It was ligated with 2 0 silk at the level of the deep epigastric vessels. A medium plug was placed in the defect created and tacked into place with interrupted 0 Ethibond suture. The floor was closed over it with interrupted [id number] Ethibond. Lightweight patch was then placed across the floor and tacked at the pubic tubercle the posterior lamella the anterior rectus sheath the ileal inguinal ligament and superior and lateral to the internal ring. The external oblique was closed from the area of the pubic tubercle proximally. The subcu was closed with interrupted 3 0 Vicryl. The skin was closed with a running 4 0 Vicryl subcuticular stitch and Steri-Strips. Dressing was applied the patient was awakened extubated taken recovery area in good condition. Complications: none Post-operative Condition: stable Disposition: PACU Plan for aftercare: Follow-up in the office
[2020-01-31] MEDS: OXYCODONE/ACETAMINOPHEN 5/325 TABLET 1 TAB PO (13:18)
--- NOTE | 2020-01-31 14:18 | SUR.PHASEII ---
Assumed care of this pt from Clayton Cantrell at this time. brought in, d/c instructions discussed, ice pack placed to right groin for pain control. Dressing is c/d/i. went to [place] to pharmacy picking technician medication. Pt assisted to dress.
--- NOTE | 2020-01-31 14:42 | SUR.PHASEII ---
Pt dressed and ready to go awaiting pt's to returned.
--- NOTE | 2020-01-31 15:47 | SUR.PHASEII ---
Late entry: returned, d/c instructions discussed, both voiced an understanding. Pt left when ready and left in stable condition.
== END 2020-01-31 14:50 | disposition home or self-care (01) ==
PROVIDERS: Family Provider Family Medicine; PCP Family Medicine; Referring Provider Specialist; Visit Provider Specialist
PROC: (CPT 49505; principal; 2020-01-31 11:15)
DX: K40.90 Unilateral inguinal hernia, without obstruction or gangrene, not specified as recurrent (principal); Z86.73 Personal history of transient ischemic attack (TIA), and cerebral infarction without residual deficits; M06.9 Rheumatoid arthritis, unspecified
CPT/HCPCS: 49505; C1781; J0690; J1100; J2405; J2704; J3010

== ENCOUNTER → 2020-03-03 09:15 | Outpatient (CLI) | payer MEDICARE, OTHER, SELFPAY ==
[2020-03-03 10:03] LABS: Add Manual Diff / Slide Review NO; Basophils Absolute Auto 100 /uL (0-100); Basophils Percent Auto 1.1 % (0-2); Eosinophils Absolute Auto 100 /uL (0-450); Hematocrit 41.6 % (36-46); Hemoglobin 14.1 g/dL (12.0-16.0); Lymphocytes Absolute Auto 1500 /uL (1100-4500); Lymphocytes Percent Auto 29.7 % (25-40); Mean Corpuscular HGB Conc 33.8 % (30-36); Mean Corpuscular Hemoglobin 31.9 PG (26-34); Mean Corpuscular Volume 94.2 fL (80-100); Monocytes Absolute Auto 400 /uL (0-900); Monocytes Percent Auto 8.1 % (3-14); Neutrophils Absolute Auto 3000 /uL (1500-7000); Neutrophils Percent Auto 59.1 % (50-75); Platelet Count 218 X10^3/uL (150-400); Red Blood Cell Count 4.42 X10^6/uL (4.0-5.2); Red Cell Distribution Width 13.3 % (11.6-14.8)
[2020-03-03 10:32] LABS: Alanine Aminotransferase 27 IU/L (<35); Albumin 4.2 g/dL (3.5-5.0); Albumin Globulin Ratio 1.7 (1.0-2.8); Alkaline Phosphatase 51 U/L (38-126); Aspartate Aminotransferase 35 IU/L (14-36); BUN Creatinine Ratio 24.7 (6-22); Bilirubin Total 0.7 mg/dL (0.2-1.3); Blood Urea Nitrogen 20 mg/dL (7-17); Calcium 9.7 mg/dL (8.4-10.2); Carbon Dioxide 31 mmol/L (22-32); Chloride 104 mmol/L (98-107); Estimated Glomerular Filt Rate > 60.0 mL/min (>60); Globulin 2.5 g/dL (1.7-4.1); Glucose 105 mg/dL (80-110); HEMOLYSIS < 15 (0-50); Potassium 4.9 mmol/L (3.4-5.1); Sodium 138 mmol/L (137-145); Total Protein 6.7 g/dL (6.3-8.2)
== END ==
PROVIDERS: Family Provider Family Medicine; PCP Family Medicine; Referring Provider Internal Medicine Rheumatology; Visit Provider Internal Medicine Rheumatology
DX: M05.29 Rheumatoid vasculitis with rheumatoid arthritis of multiple sites (principal); Z79.899 Other long term (current) drug therapy
CPT/HCPCS: 36415; 80053; 85025

== ENCOUNTER → 2020-06-20 15:21 | Outpatient (CLI) | payer MEDICARE, OTHER, SELFPAY ==
[2020-06-20 15:46] LABS: Add Manual Diff / Slide Review NO; Basophils Absolute Auto 0 /uL (0-100); Basophils Percent Auto 0.5 % (0-2); Eosinophils Absolute Auto 200 /uL (0-450); Eosinophils Percent Auto 3.1 % (2-4); Hematocrit 40.6 % (36-46); Hemoglobin 13.8 g/dL (12.0-16.0); Lymphocytes Absolute Auto 1400 /uL (1100-4500); Lymphocytes Percent Auto 28.4 % (25-40); Mean Corpuscular HGB Conc 34.1 % (30-36); Mean Corpuscular Volume 93.9 fL (80-100); Monocytes Absolute Auto 400 /uL (0-900); Neutrophils Absolute Auto 3000 /uL (1500-7000); Platelet Count 211 X10^3/uL (150-400); Red Blood Cell Count 4.32 X10^6/uL (4.0-5.2); Red Cell Distribution Width 13.1 % (11.6-14.8); White Blood Cell Count 5.1 X10^3/uL (4.5-11.0)
[2020-06-20 16:07] LABS: Alanine Aminotransferase 25 IU/L (<35); Albumin 4.1 g/dL (3.5-5.0); Albumin Globulin Ratio 2.1 (1.0-2.8); Alkaline Phosphatase 53 U/L (38-126); Aspartate Aminotransferase 34 IU/L (14-36); Bilirubin Total 0.4 mg/dL (0.2-1.3); Blood Urea Nitrogen 22 mg/dL (7-17); Calcium 9.5 mg/dL (8.4-10.2); Carbon Dioxide 30 mmol/L (22-32); Chloride 106 mmol/L (98-107); Estimated Glomerular Filt Rate > 60.0 mL/min (>60); Glucose 149 mg/dL (80-110); HEMOLYSIS < 15 (0-50); Sodium 140 mmol/L (137-145); Total Protein 6.1 g/dL (6.3-8.2)
== END ==
PROVIDERS: Family Provider Family Medicine; PCP Family Medicine; Referring Provider Internal Medicine Rheumatology; Visit Provider Internal Medicine Rheumatology
DX: M05.29 Rheumatoid vasculitis with rheumatoid arthritis of multiple sites (principal); Z79.899 Other long term (current) drug therapy
CPT/HCPCS: 36415; 80053; 85025

== ENCOUNTER → 2020-09-15 09:07 | Outpatient (CLI) | payer MEDICARE, OTHER, SELFPAY ==
[2020-09-15 10:04] LABS: Add Manual Diff / Slide Review NO; Basophils Absolute Auto 100 /uL (0-100); Basophils Percent Auto 1.6 % (0-2); Eosinophils Absolute Auto 100 /uL (0-450); Eosinophils Percent Auto 2.5 % (2-4); Hematocrit 42.7 % (36-46); Hemoglobin 14.4 g/dL (12.0-16.0); Lymphocytes Absolute Auto 1100 /uL (1100-4500); Lymphocytes Percent Auto 27.3 % (25-40); Mean Corpuscular HGB Conc 33.6 % (30-36); Mean Corpuscular Hemoglobin 31.9 PG (26-34); Mean Corpuscular Volume 94.8 fL (80-100); Monocytes Absolute Auto 400 /uL (0-900); Monocytes Percent Auto 8.8 % (3-14); Neutrophils Absolute Auto 2400 /uL (1500-7000); Neutrophils Percent Auto 59.8 % (50-75); Platelet Count 217 X10^3/uL (150-400)
[2020-09-15 10:42] LABS: Alanine Aminotransferase 31 IU/L (<35); Albumin Globulin Ratio 1.8 (1.0-2.8); Alkaline Phosphatase 41 U/L (38-126); Aspartate Aminotransferase 39 IU/L (14-36); BUN Creatinine Ratio 22.8 (6-22); Bilirubin Total 0.5 mg/dL (0.2-1.3); Blood Urea Nitrogen 18 mg/dL (7-17); Calcium 9.8 mg/dL (8.4-10.2); Carbon Dioxide 31 mmol/L (22-32); Chloride 105 mmol/L (98-107); Estimated Glomerular Filt Rate > 60.0 mL/min (>60); Globulin 2.2 g/dL (1.7-4.1); Glucose 76 mg/dL (80-110); HEMOLYSIS < 15 (0-50); Potassium 4.8 mmol/L (3.4-5.1); Sodium 139 mmol/L (137-145); Total Protein 6.2 g/dL (6.3-8.2)
== END ==
PROVIDERS: Family Provider Family Medicine; PCP Family Medicine; Referring Provider Internal Medicine Rheumatology; Visit Provider Internal Medicine Rheumatology
DX: M05.29 Rheumatoid vasculitis with rheumatoid arthritis of multiple sites (principal); Z79.899 Other long term (current) drug therapy
CPT/HCPCS: 36415; 80053; 85025

== ENCOUNTER 2020-12-01 22:31 | Emergency (ER) | payer MEDICARE, OTHER, SELFPAY ==
[2020-12-01 22:38] VITALS: BP 154/82; PULSE 80; RESP 15; TEMP 37.2; O2SAT 100; BMI 20.9
--- NOTE | 2020-12-01 23:11 | DI.CT.S_ITS ---
PROCEDURE: CT ABDOMEN PELVIS W CON INDICATIONS: severe right lower quadrant pain TECHNIQUE: After the administration of oral and IV contrast, axial sections were acquired from the lung bases to the pubic symphysis. Coronal and sagittal reformats were performed. For radiation dose reduction, the following was used: automated exposure control, adjustment of mA and/or kV according to patient size. COMPARISON: [facility], CT, CT ABDOMEN PELVIS W CON, 09/11/2018, 14:23. FINDINGS: Image quality: Excellent. Lung bases: Unremarkable. Heart: No significant findings. ABDOMEN: Liver: Unremarkable. Gallbladder: Unremarkable. Biliary ducts: Unremarkable. Pancreas: Unremarkable. Spleen: Unremarkable. Adrenal Glands: Unremarkable. Kidneys and Ureters: Unremarkable. Stomach and Bowel: In this patient with this given history, scrutiny is given to the appendix. The appendix is hyperenhancing and mildly dilated, measuring 8 mm at its tip. The appendix is seen inferior to the cecum. Generalized lower abdominal inflammatory changes are seen. Peritoneum: No abnormal intraperitoneal fluid. No free air. Ventral Wall: No hernia. Abdominal Nodes: No retroperitoneal or mesenteric adenopathy by size criteria. Vessels: Aorta and inferior vena cava are normal in size. PELVIS: Pelvic Organs: Unremarkable. A vaginal pessary can be seen. Bladder: Unremarkable. Pelvic Nodes: No enlarged lymph nodes. Miscellaneous: No inguinal hernias are seen. Bones: Unremarkable. IMPRESSION: Acute appendicitis, without findings of perforation or abscess. Incidental note is made of: Vaginal pessary Note: This case (including differences between this final report and the preliminary report) discussed by telephone with Dr. Uribe at 7:54 a.m. [place] time on December 02, 2020. Dictated by: Blas Rodriguez M.D. on 12/02/2020 at 7:37 Transcribed by: ИВАН on 12/02/2020 at 7:44 Approved by: Blas Rodriguez M.D. on 12/02/2020 at 7:56
[2020-12-01] MEDS: LACTATED RINGERS 1,000 ML 150 ML IV (23:17)
[2020-12-01 23:22] VITALS: PULSE 68; O2SAT 100
[2020-12-01 23:23] LABS: Add Manual Diff / Slide Review NO; Basophils Absolute Auto 100 /uL (0-100); Basophils Percent Auto 1.1 % (0-2); Eosinophils Absolute Auto 100 /uL (0-450); Eosinophils Percent Auto 1.6 % (2-4); Hematocrit 40.2 % (36-46); Hemoglobin 13.9 g/dL (12.0-16.0); Lymphocytes Absolute Auto 1100 /uL (1100-4500); Lymphocytes Percent Auto 14.7 % (25-40); Mean Corpuscular HGB Conc 34.5 % (30-36); Mean Corpuscular Hemoglobin 32.3 PG (26-34); Mean Corpuscular Volume 93.8 fL (80-100); Monocytes Absolute Auto 500 /uL (0-900); Monocytes Percent Auto 6.2 % (3-14); Neutrophils Absolute Auto 5500 /uL (1500-7000); Neutrophils Percent Auto 76.4 % (50-75); Platelet Count 204 X10^3/uL (150-400); Red Blood Cell Count 4.28 X10^6/uL (4.0-5.2); Red Cell Distribution Width 12.9 % (11.6-14.8); White Blood Cell Count 7.3 X10^3/uL (4.5-11.0)
[2020-12-01 23:30] VITALS: BP 150/74; PULSE 69; O2SAT 99
[2020-12-01 23:40] LABS: Alanine Aminotransferase 27 IU/L (<35); Albumin 4.3 g/dL (3.5-5.0); Albumin Globulin Ratio 1.8 (1.0-2.8); Alkaline Phosphatase 50 U/L (38-126); Aspartate Aminotransferase 32 IU/L (14-36); BUN Creatinine Ratio 22.5 (6-22); Bilirubin Total 0.6 mg/dL (0.2-1.3); Blood Urea Nitrogen 16 mg/dL (7-17); Calcium 9.1 mg/dL (8.4-10.2); Carbon Dioxide 25 mmol/L (22-32); Chloride 107 mmol/L (98-107); Estimated Glomerular Filt Rate > 60.0 mL/min (>60); Globulin 2.4 g/dL (1.7-4.1); Glucose 124 mg/dL (80-110); HEMOLYSIS < 15 (0-50); Lipase 60 U/L (23-300); Potassium 3.8 mmol/L (3.4-5.1); Sodium 138 mmol/L (137-145); Total Protein 6.7 g/dL (6.3-8.2)
[2020-12-02] VITALS: PULSE 66; O2SAT 98
[2020-12-02 00:02] VITALS: BP 157/70; PULSE 65; O2SAT 98
[2020-12-02 00:30] VITALS: BP 130/67; PULSE 67; O2SAT 94
[2020-12-02 00:30] LABS: COVID19 - ADMIT (NP swab/PCR) Negative (Negative)
--- NOTE | 2020-12-02 00:55 | ED.ABDPAIN ---
HPI - Abdominal Pain General Chief Complaint: Abdominal Pain Stated Complaint: STOMACH PAINS Time Seen by Provider: 12/01/20 22:56 Source: patient Mode of arrival: Ambulatory Limitations: no limitations History of Present Illness HPI narrative: 80-year-old female nonsmoker with history of rheumatoid arthritis and TIA presents with her in the chief complaint of gradually worsening right lower quadrant pain over the course of the day. She states it started with some generalized queasiness and nausea and over the day has resulted in more significant right lower quadrant pain. She denies any radiation of the pain and states that seems to be worse when she moves and improves with rest. She denies nausea or vomiting and has had no fever. She denies any change in bowel habits such as constipation or diarrhea. She denies urinary complaints such as dysuria, frequency or urgency. Related Data Home Medications Medication Instructions Recorded Confirmed cholecalciferol (vitamin D3) 50 2,000 unit PO DAILY 09/11/18 10/26/20 mcg (2,000 unit) capsule (Vitamin D3) folic acid 1 mg tablet 1 mg PO DAILY 09/11/18 12/01/20 methotrexate sodium 2.5 mg tablet 7.5 mg PO PARKS tab 07/20/19 12/01/20 calcium carbonate 600 mg calcium 600 mg PO DAILY #0 tab 07/22/19 12/01/20 (1,500 mg) tablet hydroxychloroquine 200 mg tablet 200 mg PO BID 07/22/19 12/01/20 estradiol 0.5 g VAG .QHS PRN 12/01/20 12/01/20 metoprolol tartrate 25 mg tablet 25 mg PO DAILY 12/01/20 12/01/20 Previous Rx's Medication Instructions Recorded clopidogrel 75 mg tablet 75 mg PO DAILY #90 tab 07/06/20 oxyquinoline 0.025 %-sodium lauryl 1 ea VAGINAL .prn #113.4 g 10/24/20 sulfate 0.01 % vaginal gel rosuvastatin 20 mg tablet (Crestor) 10 mg PO QPM #45 tab 10/26/20 hyoscyamine sulfate 0.125 mg tablet 0.125 mg PO BID-QID PRN #20 tab 12/02/20 Allergies Allergy/AdvReac Type Severity Reaction Status Date / Time chlorhexidine Allergy Mild rash Verified 10/24/20 09:38 morphine AdvReac Mild ITCHING Verified 10/24/20 09:38 povidone-iodine AdvReac Mild Redness Verified 10/24/20 09:38 [From BETADINE] soap [From BETADINE] AdvReac Mild Redness Verified 10/24/20 09:38 Review of Systems Review of Systems Narrative: GENERAL: Denies chills, fatigue, malaise, fever, sweats. HEENT: Denies sinus pain, ear pain, sore throat, difficulty swallowing, dizziness. RESPIRATORY: Denies dyspnea, cough, wheezing, hemoptysis, sputum. CARDIOVASCULAR: Denies chest pain, palpitations, orthopnea, edema, GASTROINTESTINAL see HPI : Denies dysuria, frequency, incontinence, hematuria, urinary retention. MUSCULOSKELETAL: denies weakness, joint pain, or bony pain SKIN: Denies rash, skin lesions, or other NEUROLOGIC: Denies weakness, headache, numbness, change in speech, confusion, seizures, incoordination. PSYCHIATRIC: No concerning psychosocial issues. 12 point review of systems is negative except for those stated above Patient History Medical History Actinic keratosis Chicken pox Fever (~2001) Gout (~2016) Hearing loss Herniated disc (~2007) HLD (hyperlipidemia) HTN (hypertension) Measles Mumps Osteopenia Presence of pessary (~2002) Rheumatoid arthritis (~2016) Seasonal allergies (~1949) Shoulder pain TIA (transient ischemic attack) (~2018) Tinnitus (~1950) Vision disorder Surgical History History of hernia repair (~2011) History of repair of ACL (~1999) History of tubal ligation (~1973) Melanoma in situ (~2007) Skin cancer, basal cell (~2016) Family History Father No problems noted. Mother Hypertension Heart disease Sepsis Stroke Sister Hypertension Grandmother Stroke Grandmother Cancer Family/Other Myocardial infarction Social History marital status: number of children: 2 household members: spouse housing: house education level: college occupational status: other Smoking Status: Never smoker alcohol intake: current substance use type: does not use Smoking Status: Never smoker alcohol intake frequency: a few times a month Substance Use Type: does not use Exam Narrative Exam Narrative: GENERAL: [72 year old patient appears stated age. Well-developed patient, in mild distress. HEAD: Atraumatic. Normocephalic. EYES: Pupils equal round and reactive. Extraocular motions intact. No scleral icterus. No injection or drainage. ENT: Nose without bleeding, purulent drainage. Throat without erythema, tonsillar hypertrophy or exudate. Airway patent. NECK: Trachea midline. Non tender CARDIOVASCULAR: Regular rate and rhythm without murmurs, gallops, or rubs. RESPIRATORY: Clear to auscultation. Breath sounds equal bilaterally. No wheezes, rales, or rhonchi. GASTROINTESTINAL: Abdomen soft, tender in the right lower quadrant with voluntary guarding. Negative obturator, psoas, heel tap and Rovsing's. Bowel sounds present in all quadrants EXTREMITIES: No edema or joint tenderness. BACK: Nontender without deformity or crepitance. No flank tenderness. NEURO: AOx3. 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) Stat Discontinued Medications Lactated Ringer's (Lactated Ringers) 1,000 mls @ 150 mls/hr IV CONT NAHED Last Infusion: 12/02/20 01:33 Dose: 0 mls/hr Documented by: Admin: 12/01/20 23:17 Dose: 150 mls/hr Documented by: DREW Ondansetron HCl (Ondansetron 4 Mg Odt Prepack) 1 bottle MISC SEEINSTR ONE Stop: 12/02/20 01:11 Last Admin: 12/02/20 01:19 Dose: 1 bottle Documented by: HGUBERN Vital Signs Vital signs: Vital Signs - 8 hr 12/01/20 22:38 12/01/20 23:22 12/01/20 23:30 Temperature 98.9 F Pulse Rate 80 68 69 Respiratory Rate 15 Blood Pressure 154/82 H 150/74 H Pulse Oximetry 100 100 99 12/02/20 00:00 12/02/20 00:02 12/02/20 00:30 Temperature Pulse Rate 66 65 67 Respiratory Rate Blood Pressure 157/70 H 130/67 Pulse Oximetry 98 98 94 MDM - Abdominal Pain Lab Data Result diagrams: 12/01/20 23:16 12/01/20 23:16 Labs: Lab Results 12/01/20 12/01/20 12/01/20 Range/Units 23:16 23:16 23:26 WBC 7.3 (4.5-11.0) X10^3/uL RBC 4.28 (4.0-5.2) X10^6/uL Hgb 13.9 (12.0-16.0) g/dL Hct 40.2 (36-46) % MCV 93.8 (80-100) fL MCH 32.3 (26-34) PG MCHC 34.5 (30-36) % RDW 12.9 (11.6-14.8) % Plt Count 204 (150-400) X10^3/uL Neut % (Auto) 76.4 H (50-75) % Lymph % (Auto) 14.7 L (25-40) % [place] % (Auto) 6.2 (3-14) % Eos % (Auto) 1.6 L (2-4) % Baso % (Auto) 1.1 (0-2) % Neut # (Auto) 5500 (2830-9459) /uL Lymph # (Auto) 1100 (9849-2782) /uL Cro[place] # (Auto) 500 (0-900) /uL Eos # (Auto) 100 (0-450) /uL Baso # (Auto) 100 (0-100) /uL Sodium 138 (137-145) mmol/L Potassium 3.8 (3.4-5.1) mmol/L Chloride 107 (98-107) mmol/L Carbon Dioxide 25 (22-32) mmol/L BUN 16 (7-17) mg/dL Creatinine 0.71 (0.52-1.04) mg/dL Estimated GFR > 60.0 (>60) mL/min BUN/Creatinine Ratio 22.5 H (6-22) Glucose 124 H (80-110) mg/dL Calcium 9.1 (8.4-10.2) mg/dL Total Bilirubin 0.6 (0.2-1.3) mg/dL AST 32 (14-36) IU/L ALT 27 (<35) IU/L Alkaline Phosphatase 50 (38-126) U/L Total Protein 6.7 (6.3-8.2) g/dL Albumin 4.3 (3.5-5.0) g/dL Globulin 2.4 (1.7-4.1) g/dL Albumin/Globulin Ratio 1.8 (1.0-2.8) Lipase 60 (23-300) U/L SARS-CoV-2 (PCR) Negative (Negative) Point of care testing: Urine Dip Bedside Urine Glucose Negative Bedside Urine Bilirubin - Negative Bedside Urine Ketone +/- 5 Urine Specific [place] 1.030 Bedside Urine Occult Blood - Negative Bedside Urine pH 6 Bedside Urine Protein - Negative Bedside Urine Urobilinogen - Negative Bedside Urine Nitrite - Negative Bedside Urine Leukocytes +/- [address] scan - abdomen/pelvis: Radiologist's Impression: Mild ileus could be considered, increased stool quantity may indicate constipation. Increased stool in the cecum, no secondary signs of appendicitis but appendix is not actually seen MDM Narrative Medical decision making narrative: Patient with right lower quadrant pain, absent of vomiting, fever, or elevated white blood cell count. CT scan demonstrates possible ileus. Patient has had no vomiting and had bowel movements earlier and is passing gas. Bowel obstruction and appendicitis both considered. Extensive return precautions given and explanation to patient that this could be early bowel obstruction versus appendicitis but given how well she appears, reassuring labs and vital signs she is appropriate for discharge. We talked about clear liquid diet for the next 1-2 days and pain control. She has had her questions answered to her apparent satisfaction Discharge Plan Departure Patient Disposition: Home Clinical Impression: Right lower quadrant abdominal pain Instructions: DI for Abdominal Pain-Adult Activity Restrictions/Additional Instructions: *You have been diagnosed with [right lower quadrant pain, very reassuring blood work and CT scan would suggest against appendicitis, kidney stone, bowel obstruction or other serious condition. *What to do: *Please continue to take your regular medications as directed. [x ] New medication prescriptions sent to your pharmacy: [[facility] in [place] ] [ ] New medication written as a paper prescription [ ] No new medications given *Please follow up with your primary care provider in 2-3 days, call for an appointment. Let them know you were seen in the Emergency Department and that we ask that you be seen in follow up. We will electronically transmit a record of today's note if your PCP is in our system As we discussed please consider a clear liquid diet for the next 24-48 hours. *If you do not have a primary care provider please contact the [facility] Resource line at [phone]. They will ask some questions about your medical history and help get you set up with a doctor in the community. *Return to Emergency Department if you should have any new, worsening or concerning symptoms, such as [fever greater than 101 F, shaking chills, worsening pain, persistent vomiting or other bothersome symptoms] Prescriptions: New hyoscyamine sulfate 0.125 mg tablet 0.125 mg PO BID-QID PRN (Reason: dyspepsia) Qty: 20 RF: 0 No Action hydroxychloroquine 200 mg tablet 200 mg PO BID RF: 0 calcium carbonate 600 mg calcium (1,500 mg) tablet 600 mg PO DAILY Qty: 0 RF: 0 rosuvastatin [Crestor] 20 mg tablet 10 mg PO QPM Qty: 45 RF: 11 methotrexate sodium 2.5 mg tablet 7.5 mg PO PARKS RF: 0 clopidogrel 75 mg tablet 75 mg PO DAILY Qty: 90 RF: 3 oxyquinoline-sod.lauryl sulfat 0.025-0.01 % gel 1 ea vaginal .prn Qty: 113.4 RF: 2 estradiol 0.01 % (0.1 mg/gram) cream 0.5 g VAG .QHS PRN (Reason: pesery) RF: 0 metoprolol tartrate 25 mg tablet 25 mg PO DAILY RF: 0 folic acid 1 mg Tablet 1 mg PO DAILY RF: 0 cholecalciferol (vitamin D3) [Vitamin D3] 2,000 unit Capsule 2,000 unit PO DAILY RF: 0 Referrals: Marely Sanchez DO [Primary Care Provider] -
[2020-12-02] MEDS: ONDANSETRON 4 MG ODT PREPACK 1 BOTTLE MISC (01:19)
== END 2020-12-02 01:36 | disposition home or self-care (01) ==
PROVIDERS: Emergency Provider Emergency Medicine; Family Provider Family Medicine; PCP Family Medicine
DX: R10.31 Right lower quadrant pain (principal); R11.0 Nausea; Z20.822 Contact with and (suspected) exposure to COVID-19
CPT/HCPCS: 36415; 74177; 80053; 81003; 83690; 85025; 87635; 93005; 96360; 96361; 99284; C9803; Q9967

== ENCOUNTER 2020-12-02 10:16 | Day surgery (SDC) | payer MEDICARE, OTHER, SELFPAY ==
[2020-12-02] VITALS (22 sets, daily range): BP systolic 107–147; BP diastolic 47–80; PULSE 61–86; RESP 15–34; TEMP 36.1–37.1; O2SAT 92–100; BMI 53.8
--- NOTE | 2020-12-02 10:52 | ED.ABDPAIN ---
HPI - Abdominal Pain General Chief Complaint: Abdominal Pain Stated Complaint: pt was told to return to the er Time Seen by Provider: 12/02/20 10:26 Source: patient and family Mode of arrival: Wheelchair Limitations: no limitations History of Present Illness HPI narrative: Patient is a 80-year-old female with history of TIA on clopidogrel who was seen and evaluated yesterday in the emergency department for right lower quadrant pain which started yesterday. Initial CT did not show appendicitis showed possible ileus with over-read this morning did show acute appendicitis. She was afebrile. I called and spoke with patient's they requested she come back to emergency department for re-evaluation. She says her pain is improved somewhat. She had 6 oz glass of water at 7:00 a.m. this morning but nothing to drink. Related Data Home Medications Medication Instructions Recorded Confirmed cholecalciferol (vitamin D3) 50 2,000 unit PO DAILY 09/11/18 12/02/20 mcg (2,000 unit) capsule (Vitamin D3) folic acid 1 mg tablet 1 mg PO DAILY 09/11/18 12/02/20 methotrexate sodium 2.5 mg tablet 7.5 mg PO PARKS tab 07/20/19 12/02/20 calcium carbonate 600 mg calcium 600 mg PO DAILY #0 tab 07/22/19 12/02/20 (1,500 mg) tablet hydroxychloroquine 200 mg tablet 200 mg PO BID 07/22/19 12/02/20 estradiol 0.5 g VAG .QHS PRN 12/01/20 12/02/20 metoprolol tartrate 25 mg tablet 25 mg PO DAILY 12/01/20 12/02/20 Previous Rx's Medication Instructions Recorded clopidogrel 75 mg tablet 75 mg PO DAILY #90 tab 07/06/20 oxyquinoline 0.025 %-sodium lauryl 1 ea VAGINAL .prn #113.4 g 10/24/20 sulfate 0.01 % vaginal gel rosuvastatin 20 mg tablet (Crestor) 10 mg PO QPM #45 tab 10/26/20 hyoscyamine sulfate 0.125 mg tablet 0.125 mg PO BID-QID PRN #20 tab 12/02/20 oxycodone 5 mg tablet 5 mg PO Q4H PRN #10 tab 12/02/20 Allergies Allergy/AdvReac Type Severity Reaction Status Date / Time chlorhexidine Allergy Mild rash Verified 12/02/20 13:34 morphine AdvReac Mild ITCHING Verified 12/02/20 13:34 povidone-iodine AdvReac Mild Redness Verified 12/02/20 13:34 [From BETADINE] soap [From BETADINE] AdvReac Mild Redness Verified 12/02/20 13:34 Review of Systems Review of Systems Narrative: GENERAL: Denies chills, fatigue, malaise, fever, sweats, travel HEENT: Denies sinus pain, ear pain, sore throat, difficulty swallowing, neck pain RESPIRATORY: Denies dyspnea, cough, wheezing, hemoptysis, sputum. CARDIOVASCULAR: Denies chest pain, palpitations, orthopnea, edema GASTROINTESTINAL: See HPI : Denies dysuria, frequency, incontinence, hematuria, urinary retention, flank pain. MUSCULOSKELETAL: Denies weakness, joint pain, or bony pain SKIN: No rash, no erythema, no pruritus NEUROLOGIC: Denies weakness, dizziness, headache, numbness, change in speech, confusion PSYCHIATRIC: No concerning psychosocial issues. 12 point review of systems is negative except for those stated above and HPI Patient History Medical History (Updated 12/02/20 @ 12:52 by Michael Johns MD) Actinic keratosis Chicken pox Fever (~2001) Gout (~2016) Hearing loss Herniated disc (~2007) HLD (hyperlipidemia) HTN (hypertension) Measles Mumps Osteopenia Presence of pessary (~2002) Rheumatoid arthritis (~2016) Seasonal allergies (~1950) Shoulder pain TIA (transient ischemic attack) (~2018) Tinnitus (~1950) Vision disorder Surgical History (Updated 12/02/20 @ 12:48 by Michael Johns MD) History of hernia repair (~2011) History of repair of ACL (~1999) History of right inguinal hernia repair History of tubal ligation (~1973) Melanoma in situ (~2007) Skin cancer, basal cell (~2016) Family History Father No problems noted. Mother Hypertension Heart disease Sepsis Stroke Sister Hypertension Grandmother Stroke Grandmother Cancer Family/Other Myocardial infarction Social History marital status: number of children: 2 household members: spouse housing: house education level: college occupational status: other Smoking Status: Never smoker alcohol intake: current substance use type: does not use Smoking Status: Never smoker alcohol intake frequency: a few times a month Substance Use Type: does not use Exam Initial Vital Signs Initial Vital Signs: Vital Signs Pulse Rate 81 12/02/20 10:31 Respiratory Rate 28 H 12/02/20 10:31 Pulse Oximetry 98 12/02/20 10:31 GENERAL: Pleasant 80-year-old female HEENT: Head atraumatic,EOMI, pupils reactive, face symmetric, moist mucous membranes CARDIOVASCULAR: Regular rate and rhythm without murmurs, rubs or gallops. RESPIRATORY: Breath sounds equal bilaterally, no wheezes rales or rhonchi. ABDOMEN: Soft, mild right lower quadrant pain no guarding no rebound pain on right side with left-sided is palpated EXTREMITIES: Normal range of motion, no clubbing or edema. Neurovascularly intact NEUROLOGICAL: Alert and oriented x4.Normal gait and speech. SKIN: Warm, dry, no laceration, no petechiae, no rashes or lesions. Course Orders Ordered: Acetaminophen (Acetaminophen 325 Mg Tablet) 650 mg PO Q6HR PRN PRN Reason: Pain, Mild (1-3) Last Admin: 12/03/20 02:05 Dose: 650 mg Documented by: CARLOTTA Enoxaparin Sodium (Enoxaparin 40 Mg/0.4 Ml Syringe) 40 mg SUBCUT BID [facility] Last Admin: 12/02/20 20:04 Dose: 40 mg Documented by: TAMMI Gabapentin (Gabapentin 300 Mg Capsule) 300 mg PO BID [facility] Last Admin: 12/02/20 20:04 Dose: 300 mg Documented by: TAMMI Hydroxychloroquine Sulfate (Hydroxychloroquine 200 Mg Tablet) 200 mg PO BIDWM [facility] Last Admin: 12/02/20 19:28 Dose: Not Given Documented by: ISABELLA Lactated Ringer's (Lactated Ringers) 1,000 mls @ 42 mls/hr IV NOW ONE Stop: 12/03/20 14:15 Last Infusion: 12/02/20 15:59 Dose: 0 mls/hr Documented by: Admin: 12/02/20 14:29 Dose: 42 mls/hr Documented by: Infusion: 12/02/20 14:29 Dose: 42 mls/hr Documented by: Admin: 12/02/20 13:55 Dose: 42 mls/hr Documented by: TONO Lactated Ringer's (Lactated Ringers) 1,000 mls @ 42 mls/hr IV CONT NAHED Last Admin: 12/02/20 17:14 Dose: 42 mls/hr Documented by: ISABELLA Metoprolol Tartrate (Metoprolol Ir 25 Mg Tablet) 25 mg PO DAILY NAHED Naloxone HCl (Naloxone 0.4 Mg/Ml Vial) 0.2 mg IV Q2MIN PRN PRN Reason: Opiate Reversal Oxycodone/Acetaminophen (Oxycodone/Acetaminophen 5/325 Tablet) 1 tab PO Q4HR PRN PRN Reason: Pain, Moderate (4-6) Prochlorperazine (Prochlorperazine 5 Mg Tablet) 10 mg PO Q6HR PRN PRN Reason: Nausea Discontinued Medications Bupivacaine HCl (Bupivacaine 0.5% (Pf) Vial) 30 ml INJ INTRA-OP ONE Stop: 12/02/20 14:15 Last Admin: 12/02/20 14:16 Dose: 10 ml Documented by: TANO Fentanyl (Fentanyl 100 Mcg/2 Ml Inj) 0 mcg IV Q5M PRN PRN Reason: Pain, Moderate (4-6) Hydromorphone HCl (Hydromorphone 2 Mg Inj) 0 mg IV Q5M PRN PRN Reason: Pain, Severe (7-10) Piperacillin Sod/Tazobactam (Sod 4.5 gm/ Sodium Chloride) 100 mls @ 200 mls/hr IV NOW ONE Stop: 12/02/20 11:13 Last Infusion: 12/02/20 12:58 Dose: 0 mls/hr Documented by: Admin: 12/02/20 11:57 Dose: 200 mls/hr Documented by: JUDY Piperacillin Sod/Tazobactam (Sod 3.375 gm/ Sodium Chloride) 100 mls @ 200 mls/hr IV NOW ONE Stop: 12/02/20 13:13 Last Admin: 12/03/20 01:10 Dose: Not Given Documented by: CARLOTTA Piperacillin Sod/Tazobactam (Sod 3.375 gm/ Sodium Chloride) 100 mls @ 25 mls/hr IV NOW ONE Stop: 12/02/20 14:15 Last Infusion: 12/02/20 23:46 Dose: 0 mls/hr Documented by: Admin: 12/02/20 14:00 Dose: 25 mls/hr Documented by: MILLICENT Ondansetron HCl (Ondansetron 4 Mg/2 Ml Inj) 4 mg IV NOW PRN PRN Reason: Nausea And Vomiting Oxycodone/Acetaminophen (Oxycodone/Acetaminophen 5/325 Tablet) 1 tab PO PACUNOW PRN PRN Reason: Mild or Moderate Pain MDM - Abdominal Pain Lab Data Result diagrams: 12/02/20 11:10 12/02/20 11:10 Labs: Lab Results 12/02/20 12/02/20 Range/Units 11:10 11:10 WBC 8.2 (4.5-11.0) X10^3/uL RBC 4.19 (4.0-5.2) X10^6/uL Hgb 13.5 (12.0-16.0) g/dL Hct 39.4 (36-46) % MCV 93.9 (80-100) fL MCH 32.2 (26-34) PG MCHC 34.3 (30-36) % RDW 12.9 (11.6-14.8) % Plt Count 188 (150-400) X10^3/uL Neut % (Auto) 80.2 H (50-75) % Lymph % (Auto) 10.9 L (25-40) % [place] % (Auto) 8.0 (3-14) % Eos % (Auto) 0.5 L (2-4) % Baso % (Auto) 0.4 (0-2) % Neut # (Auto) 6600 (7842-1867) /uL Lymph # (Auto) 900 L (0208-7584) /uL [place] # (Auto) 700 (0-900) /uL Eos # (Auto) 0 (0-450) /uL Baso # (Auto) 0 (0-100) /uL Sodium 138 (137-145) mmol/L Potassium 3.7 (3.4-5.1) mmol/L Chloride 106 (98-107) mmol/L Carbon Dioxide 26 (22-32) mmol/L BUN 14 (7-17) mg/dL Creatinine 0.72 (0.52-1.04) mg/dL Estimated GFR > 60.0 (>60) mL/min BUN/Creatinine Ratio 19.4 (6-22) Glucose 94 (80-110) mg/dL Calcium 8.8 (8.4-10.2) mg/dL Total Bilirubin 0.8 (0.2-1.3) mg/dL AST 29 (14-36) IU/L ALT 24 (<35) IU/L Alkaline Phosphatase 47 (38-126) U/L Total Protein 6.5 (6.3-8.2) g/dL Albumin 4.2 (3.5-5.0) g/dL Globulin 2.3 (1.7-4.1) g/dL Albumin/Globulin Ratio 1.8 (1.0-2.8) Lipase 49 (23-300) U/L Point of care testing: Urine Dip Bedside Urine Glucose Negative Bedside Urine Bilirubin - Negative Bedside Urine Ketone +/- 5 Urine Specific [place] 1.015 Bedside Urine Occult Blood - Negative Bedside Urine pH 6.0 Bedside Urine Protein - Negative Bedside Urine Urobilinogen - Negative Bedside Urine Nitrite - Negative Bedside Urine Leukocytes +/- [address] scan - abdomen/pelvis: Radiologist's Impression: PROCEDURE:? CT ABDOMEN PELVIS W CON ? INDICATIONS:? severe right lower quadrant pain ? TECHNIQUE:? After the administration of oral and IV contrast, axial sections were acquired from the lung bases to the pubic symphysis.? Coronal and sagittal reformats were performed.? For radiation dose reduction, the following was used:? automated exposure control, adjustment of mA and/or kV according to patient size. ? COMPARISON:? [facility], CT, CT ABDOMEN PELVIS W CON, 09/11/2018, 14:23. ? FINDINGS:? Image quality:? Excellent.? ? Lung bases:? Unremarkable.? ? Heart:? No significant findings. ? ? ABDOMEN: Liver:? Unremarkable.? ? Gallbladder:? Unremarkable.? ? Biliary ducts:? Unremarkable.? ? Pancreas:? Unremarkable.? ? Spleen:? Unremarkable.? ? Adrenal Glands:? Unremarkable.? ? Kidneys and Ureters:? Unremarkable.? ? ? Stomach and Bowel: In this patient with this given history, scrutiny is given to the appendix.? The appendix is hyperenhancing and mildly dilated, measuring 8 mm at its tip.? The appendix is seen inferior to the cecum.? Generalized lower abdominal inflammatory changes are seen. Peritoneum:? No abnormal intraperitoneal fluid.? No free air.? ? Ventral Wall: ? No hernia.? Abdominal Nodes:? No retroperitoneal or mesenteric adenopathy by size criteria.? Vessels:? Aorta and inferior vena cava are normal in size.? ? PELVIS: Pelvic Organs:? Unremarkable.? ? A vaginal pessary can be seen. Bladder:? Unremarkable.? ? Pelvic Nodes: No enlarged lymph nodes.? Miscellaneous: No inguinal hernias are seen. ? ? ? Bones:? Unremarkable.? IMPRESSION:? ? Acute appendicitis, without findings of perforation or abscess. ? ? ? Incidental note is made of: Vaginal pessary ? ? Note: This case (including differences between this final report and the preliminary report) discussed by telephone with Dr. Uribe at 7:54 a.m. [place] time on December 02, 2020. ? ? Dictated by: Blas Rodriguez M.D. on 12/02/2020 at 7:37 ? Transcribed by: ИВАН on 12/02/2020 at 7:44? ? Approved by: Blas Rodriguez M.D. on 12/02/2020 at 7:56? MDM Narrative Medical decision making narrative: Dr. Johns updated patient's symptoms test results in ED to see and evaluate patient patient going to or Discharge Plan Departure Patient Disposition: Admitted As Inpatient Clinical Impression: Acute appendicitis Qualifiers: Acute appendicitis type: with localized peritonitis Appendicitis gangrene presence: without gangrene Appendicitis perforation presence: without perforation Appendicitis abscess presence: without abscess Qualified Code(s): K35.30 - Acute appendicitis with localized peritonitis, without perforation or gangrene Admit Date/Time: 12/02/20 13:13 Admit Provider: Michael Johns
[2020-12-02 11:27] LABS: Add Manual Diff / Slide Review NO; Basophils Absolute Auto 0 /uL (0-100); Basophils Percent Auto 0.4 % (0-2); Eosinophils Absolute Auto 0 /uL (0-450); Eosinophils Percent Auto 0.5 % (2-4); Hematocrit 39.4 % (36-46); Hemoglobin 13.5 g/dL (12.0-16.0); Lymphocytes Absolute Auto 900 /uL (1100-4500); Lymphocytes Percent Auto 10.9 % (25-40); Mean Corpuscular HGB Conc 34.3 % (30-36); Mean Corpuscular Hemoglobin 32.2 PG (26-34); Mean Corpuscular Volume 93.9 fL (80-100); Monocytes Absolute Auto 700 /uL (0-900); Neutrophils Absolute Auto 6600 /uL (1500-7000); Neutrophils Percent Auto 80.2 % (50-75); Platelet Count 188 X10^3/uL (150-400); Red Blood Cell Count 4.19 X10^6/uL (4.0-5.2); Red Cell Distribution Width 12.9 % (11.6-14.8); White Blood Cell Count 8.2 X10^3/uL (4.5-11.0)
[2020-12-02 11:40] LABS: Alanine Aminotransferase 24 IU/L (<35); Albumin 4.2 g/dL (3.5-5.0); Albumin Globulin Ratio 1.8 (1.0-2.8); Alkaline Phosphatase 47 U/L (38-126); Aspartate Aminotransferase 29 IU/L (14-36); BUN Creatinine Ratio 19.4 (6-22); Bilirubin Total 0.8 mg/dL (0.2-1.3); Blood Urea Nitrogen 14 mg/dL (7-17); Calcium 8.8 mg/dL (8.4-10.2); Carbon Dioxide 26 mmol/L (22-32); Chloride 106 mmol/L (98-107); Estimated Glomerular Filt Rate > 60.0 mL/min (>60); Globulin 2.3 g/dL (1.7-4.1); Glucose 94 mg/dL (80-110); HEMOLYSIS < 15 (0-50); Lipase 49 U/L (23-300); Potassium 3.7 mmol/L (3.4-5.1); Sodium 138 mmol/L (137-145); Total Protein 6.5 g/dL (6.3-8.2)
[2020-12-02] MEDS: PIPERACILLIN/TAZO 4.5 GM in SODIUM CHLORIDE 0.9% 100 ML 200 ML IV (11:57)
--- NOTE | 2020-12-02 12:45 | PM.HP.1 ---
History of Present Illness History of Present Illness Date Patient Seen: 12/02/20 Time Patient Seen: 12:30 Chief complaint: pt was told to return to the er Narrative: The patient is a woman who developed vague abdominal pain the right abdomen yesterday morning. She was seen last evening in the emergency room and the initial interpretation of the CT scan was that there was no appendicitis. She went home but was called and brought back because the read on the CT scan this morning showed that it was consistent with acute appendicitis. She continues to have the pain. It may be a little better than yesterday. She is anorexic. She only had water this morning about 7:30 a.m.. Patient History Medical History (Updated 12/02/20 @ 12:52 by Michael Johns MD) Actinic keratosis Chicken pox Fever (~2001) Gout (~2016) Hearing loss Herniated disc (~2007) HLD (hyperlipidemia) HTN (hypertension) Measles Mumps Osteopenia Presence of pessary (~2002) Rheumatoid arthritis (~2016) Seasonal allergies (~1949) Shoulder pain TIA (transient ischemic attack) (~2018) Tinnitus (~1950) Vision disorder Surgical History (Updated 12/02/20 @ 12:48 by Michael Johns MD) History of hernia repair (~2011) History of repair of ACL (~1999) History of right inguinal hernia repair History of tubal ligation (~1973) Melanoma in situ (~2007) Skin cancer, basal cell (~2016) Family & Social History Family History Father No problems noted. Mother Hypertension Heart disease Sepsis Stroke Sister Hypertension Grandmother Stroke Grandmother Cancer Family/Other Myocardial infarction Social History: household members spouse Safety & Behavioral: Feels Safe in Current Yes Environment Been Physically Hurt or No Threatened By a Person Tobacco & Substance use: Smoking Status Never smoker alcohol intake current alcohol intake frequency a few times a month Substance Use Type does not use Meds Home Medications and Allergies Home Medications Medication Instructions Recorded Confirmed Type cholecalciferol (vitamin D3) 50 2,000 unit PO DAILY 09/11/18 10/26/20 History mcg (2,000 unit) capsule (Vitamin D3) folic acid 1 mg tablet 1 mg PO DAILY 09/11/18 12/01/20 History methotrexate sodium 2.5 mg tablet 7.5 mg PO PARKS tab 07/20/19 12/01/20 History calcium carbonate 600 mg calcium 600 mg PO DAILY #0 tab 07/22/19 12/01/20 History (1,500 mg) tablet hydroxychloroquine 200 mg tablet 200 mg PO BID 07/22/19 12/01/20 History clopidogrel 75 mg tablet 75 mg PO DAILY #90 tab 07/06/20 12/01/20 Rx oxyquinoline 0.025 %-sodium lauryl 1 ea VAGINAL .prn #113.4 g 10/24/20 12/01/20 Rx sulfate 0.01 % vaginal gel rosuvastatin 20 mg tablet (Crestor) 10 mg PO QPM #45 tab 10/26/20 12/01/20 Rx estradiol 0.5 g VAG .QHS PRN 12/01/20 12/01/20 History metoprolol tartrate 25 mg tablet 25 mg PO DAILY 12/01/20 12/01/20 History hyoscyamine sulfate 0.125 mg tablet 0.125 mg PO BID-QID PRN #20 tab 12/02/20 Rx Allergies Allergy/AdvReac Type Severity Reaction Status Date / Time chlorhexidine Allergy Mild rash Verified 12/02/20 10:30 morphine AdvReac Mild ITCHING Verified 12/02/20 10:30 povidone-iodine AdvReac Mild Redness Verified 12/02/20 10:30 [From BETADINE] soap [From BETADINE] AdvReac Mild Redness Verified 12/02/20 10:30 Review of Systems Review of Systems Narrative: Patient has had TIAs in the past and takes Plavix because of that. Last dose was yesterday. No recent TIA. No prior heart problems she is aware of. No breathing difficulties asthma shortness of breath cough. Black or bloody bowel movements. It is been long time since she had a colonoscopy. No seizures or blackouts. Exam Narrative Exam Narrative: Cooperative no apparent distress. Thin woman. Eyes are nonicteric. Lungs are clear to auscultation without rales or rhonchi. Heart regular rate and rhythm without murmur gallop. Abdomen is scaphoid and soft. There is localized tenderness in the right lower abdomen. She is alert and oriented x3. Objective Imaging CT scan - abdomen: My impression: Inflammatory changes around the appendix consistent with acute appendicitis. Radiologist's impression: See report. Report was reviewed. Labs Result Diagrams: 12/02/20 11:10 12/02/20 11:10 Labs: Laboratory Results - last 24 hr 12/02/20 12/02/20 11:10 11:10 WBC 8.2 RBC 4.19 Hgb 13.5 Hct 39.4 MCV 93.9 MCH 32.2 MCHC 34.3 RDW 12.9 Plt Count 188 Neut % (Auto) 80.2 H Lymph % (Auto) 10.9 L [place] % (Auto) 8.0 Eos % (Auto) 0.5 L Baso % (Auto) 0.4 Neut # (Auto) 6600 Lymph # (Auto) 900 L [place] # (Auto) 700 Eos # (Auto) 0 Baso # (Auto) 0 Sodium 138 Potassium 3.7 Chloride 106 Carbon Dioxide 26 BUN 14 Creatinine 0.72 Estimated GFR > 60.0 BUN/Creatinine Ratio 19.4 Glucose 94 Calcium 8.8 Total Bilirubin 0.8 AST 29 ALT 24 Alkaline Phosphatase 47 Total Protein 6.5 Albumin 4.2 Globulin 2.3 Albumin/Globulin Ratio 1.8 Lipase 49 Assessment & Plan Assessment and plan (1) Acute appendicitis: Qualifiers: Acute appendicitis type: with localized peritonitis Appendicitis abscess presence: without abscess Appendicitis gangrene presence: without gangrene Appendicitis perforation presence: without perforation Qualified Code(s): K35.30 - Acute appendicitis with localized peritonitis, without perforation or gangrene Status: Acute (2) TIA (transient ischemic attack): Problem details: Normal MRI, CTA, holter monitor, echo, nuclear treadmill stress test 01/2018 in [place], [place] and [facility] Status: Resolved (3) Vaginal prolapse: Problem details: Pessary Status: Chronic (4) HTN (hypertension): Status: Acute Assessment & Plan narrative: Patient with signs symptoms and labs and CT scan consistent with acute appendicitis. I have discussed operative versus non operative treatment of acute appendicitis. Explained the risks and benefits of both. For an operation includes the risk of bleeding infection and abscess formation. For the use of IV antibiotics only to treat this the risks were failure delay in treatment and the consequences of prolonged antibiotic usage. She appeared to understand. She would like to proceed with an operation. All questions were answered. Time Spent With Patient Critical Care time: I spent a total of [] minutes of critical care time on this patient's care today; this time is exclusive of procedural time.
--- NOTE | 2020-12-02 12:58 | PM.PREOP ---
Pre-operative Note COVID-19 COVID-19 status: Negative Result date/Date tested (Pos, Neg/Pending): 12/02/20 Interval Note History & Physical reviewed/Exam performed by Physician: Yes Changes to H&P: No
[2020-12-02] MEDS: LACTATED RINGERS 1,000 ML 42 ML IV ×3 (13:55→17:14)
[2020-12-02] MEDS: PIPERACILLIN/TAZO 3.375 GM in SODIUM CHLORIDE 0.9% 100 ML 25 ML IV (14:00)
--- NOTE | 2020-12-02 14:09 | SUR.OPER ---
Supine on padded OR bed, head on pillow, arms secured on padded arm boards at <90 degrees abduction, legs uncrossed, safety belt at thigh, tape over blanket over lower legs.
[2020-12-02] MEDS: BUPIVACAINE 0.5% (PF) VIAL 30 ML INJ (14:16)
--- NOTE | 2020-12-02 14:54 | PM.OP.1 ---
Operative Date/Time/Diagnoses Date of procedure: 12/02/20 Time of procedure: 14:54 Pre-op diagnosis: Abdominal pain acute appendicitis. Post-op diagnosis: same Procedure & Clinicians Procedure: Laparoscopic appendectomy Same procedure as scheduled: Yes Indications: Classic signs and symptoms and labs and CT for early appendicitis. Surgeon: Michael Johns Click Yes if Unassisted: Yes Anesthesia Type: General Operative Notes Findings: Tip of the appendix inflamed and attached to the abdominal sidewall. Closure Type: primary Specimen(s): other (Appendix) Estimated Blood Loss (mL): 3 Blood products transfused: none Procedure in detail: The patient was placed supine on the operating room table and underwent general endotracheal anesthesia. The patient was prepped and draped in the usual fashion. Local anesthetic was infiltrated and an incision made just above the umbilicus. It was carried down under direct vision through the fascia into the peritoneal cavity. Stay sutures of 0 Vicryl were placed in the fascia. A 12 mm port was inserted and 2 additional ports were placed. These were 5 mm ports. One was placed between the umbilicus and pubis and 1 in the left lower quadrant. The cecum and terminal ileum were identified. There were very flimsy adhesions of the mesentery the appendix to the lateral abdominal wall and the tip was inflamed and attached to the latter abdominal wall. With a very gentle sweep all of these adhesions were relieved. I could easily see the mesoappendix and divided it using a LigaSure device as the patient is on Plavix and I did not want any chance of postoperative bleeding if possible. The base of the appendix was cleared of tissue and was quite healthy. An 0 PDS loop was placed at the base of the appendix and cinched down. The appendix was transected using the LigaSure device. The appendix was immediately placed in a bag. There was no spillage. The right gutter and pelvis were copiously irrigated and suctioned free of fluid.[] The ports were all removed. The stay sutures at the umbilicus were tied. An additional 2 0 PDS was placed between the Vicryl sutures at the umbilicus. The wounds were all irrigated and 4 0 Vicryl subcuticular interrupted sutures were used to close the skin. There were no apparent complications. There was almost no bleeding during the entire procedure The patient tolerated the procedure well. Post-operative Condition: stable Disposition: PACU
--- NOTE | 2020-12-02 15:50 | SUR.PHASEI ---
Went from ER to OR for lap appy. Sent to acute care after PACU. Did well in PACU. Will probably go home later today
[2020-12-02] MEDS: ENOXAPARIN 40 MG/0.4 ML SYRINGE SUBCUT (20:04)
[2020-12-02] MEDS: GABAPENTIN 300 MG CAPSULE PO (20:04)
--- NOTE | 2020-12-02 20:43 | PC.ADMIT ---
[id number] Mark Ramos Admission Note: Patient arrived from PACU at 15:50, spouse present. Patient shown how to use call light, brakes on bed are locked. Alert and oriented x 4. Currently running LR @42ml/hr. Applied ice pack to abdomen, declines pain medication. Able to use call light as needed. The patient,Lexus Moya,80 y/o, was given written information regarding hospital policies, unit procedures and contact persons. Patient's smoking status: Never smoker. Vital Signs - 8 hr 12/02/20 13:00 12/02/20 13:31 12/02/20 13:36 Temperature 98.8 F Pulse Rate 73 72 75 Respiratory Rate 21 16 15 Blood Pressure 143/74 H 134/77 147/74 H Pulse Oximetry 94 100 99 12/02/20 15:00 12/02/20 15:05 12/02/20 15:10 Temperature 98.2 F Pulse Rate 73 74 66 Respiratory Rate 18 18 17 Blood Pressure 136/80 133/75 133/72 Pulse Oximetry 96 96 97 12/02/20 15:17 12/02/20 15:30 12/02/20 15:45 Temperature Pulse Rate 67 63 61 Respiratory Rate 17 18 15 Blood Pressure 131/69 134/76 136/75 Pulse Oximetry 96 95 96 12/02/20 15:50 12/02/20 16:20 12/02/20 16:55 Temperature 97.6 F 97.7 F Pulse Rate 62 62 66 Respiratory Rate 16 18 Blood Pressure 137/74 127/68 126/47 L Pulse Oximetry 97 96 99 12/02/20 17:25 12/02/20 18:00 12/02/20 19:00 Temperature 97.0 F L Pulse Rate 61 64 86 Respiratory Rate 17 Blood Pressure 124/73 107/60 132/77 Pulse Oximetry 97 95 96 12/02/20 20:00 Temperature 98.0 F Pulse Rate Respiratory Rate 20 Blood Pressure Pulse Oximetry
[2020-12-03] MEDS: ACETAMINOPHEN 325 MG TABLET 650 MG PO ×2 (02:05→08:23)
[2020-12-03 02:12] VITALS: BP 153/87; PULSE 69; RESP 18; TEMP 36.6
--- NOTE | 2020-12-03 02:49 | PC.NURSE ---
Pt is A and O x 4, VSS. She is able to sleep and has gotten up with FWW and SBA 1 to BR to void clear yellow qs. SHe rates her abdominal px /10 but has ONLINE TRADER R neck pain that is 7/10. Gave 650 mg APAP po. HRR, LS clear. Bandaid dressings X3, CDI.
[2020-12-03] MEDS: ENOXAPARIN 40 MG/0.4 ML SYRINGE SUBCUT (08:22)
[2020-12-03] MEDS: GABAPENTIN 300 MG CAPSULE PO (08:23)
[2020-12-03] MEDS: HYDROXYCHLOROQUINE 200 MG TABLET PO (08:26)
[2020-12-03 09:00] VITALS: BP 119/76; PULSE 66; RESP 16; TEMP 36.3; O2SAT 98
--- NOTE | 2020-12-03 09:32 | PC.NURSE ---
Assess- Patient is alert and orientedx3, she denies pain. Given tylenol to help keep her comfortable as she was having some r.shoulder and neck pain that is chronic. She is up with a consuelo person assist and the walker. Patient does not normally use a walker at home but felt safer using it here. She has 3 small lap sites that are all cdi, bt are hypoactive. Patient is resting now and will be discharged home in about an hour. will be her ride home.
--- NOTE | 2020-12-03 09:43 | P.DS_ITS ---
History of Present Illness History of Present Illness Chief complaint: pt was told to return to the er Narrative: The patient is a woman who developed vague abdominal pain the right abdomen yesterday morning. She was seen last evening in the emergency room and the initial interpretation of the CT scan was that there was no appendicitis. She went home but was called and brought back because the read on the CT scan this morning showed that it was consistent with acute appendicitis. She continues to have the pain. It may be a little better than yesterday. She is anorexic. She only had water this morning about 7:30 a.m.. Discharge Providers Provider Date of admission: 12/02/20 13:13 Discharge Date: 12/03/20 Primary care physician: Marely Sanchez DO Consults: 12/02/20 16:56 Consult to Discharge Planning Routine Comment: Discharge provider: Michael Johns MD Summary Hospital Course Discharge Diagnosis: Acute appendicitis. History of TIAs on clopidogrel to prevent future events Hypertension chronic Rheumatoid arthritis chronic on methotrexate Elevated cholesterol chronic on medication Hospital Course: Patient was taken from the emergency room to the operating room where she underwent a laparoscopic cholecystectomy. She had very early appendicitis. The tip of her appendix was inflamed and adherent to the lateral abdominal wall. Her postoperative course was unremarkable and she was discharged tolerating p.o. to follow-up in the office. Status at Discharge Cognitive/behavioral status at discharge: oriented Functional status at discharge: independent ambulation Overall status at discharge: patient is progressing back to baseline Exam Vital Signs (past 8 hours): - 12/03/20 02:12 12/03/20 09:00 Temperature 98 F 97.4 F L Pulse Rate 69 66 Respiratory Rate 18 16 Blood Pressure 153/87 H 119/76 Pulse Oximetry 98 Oxygen Delivery Method Room Air Oxygen Flow Rate 0 Narrative Exam Narrative: Abdomen is scaphoid and soft. Band-Aids are dry and intact. Objective Labs Result Diagrams: 12/02/20 11:10 12/02/20 11:10 Labs: Laboratory Results - last 24 hr 12/02/20 12/02/20 11:10 11:10 WBC 8.2 RBC 4.19 Hgb 13.5 Hct 39.4 MCV 93.9 MCH 32.2 MCHC 34.3 RDW 12.9 Plt Count 188 Neut % (Auto) 80.2 H Lymph % (Auto) 10.9 L [place] % (Auto) 8.0 Eos % (Auto) 0.5 L Baso % (Auto) 0.4 Neut # (Auto) 6600 Lymph # (Auto) 900 L [place] # (Auto) 700 Eos # (Auto) 0 Baso # (Auto) 0 Sodium 138 Potassium 3.7 Chloride 106 Carbon Dioxide 26 BUN 14 Creatinine 0.72 Estimated GFR > 60.0 BUN/Creatinine Ratio 19.4 Glucose 94 Calcium 8.8 Total Bilirubin 0.8 AST 29 ALT 24 Alkaline Phosphatase 47 Total Protein 6.5 Albumin 4.2 Globulin 2.3 Albumin/Globulin Ratio 1.8 Lipase 49 PFSH Medical History Actinic keratosis Chicken pox Fever (~2001) Gout (~2016) Hearing loss Herniated disc (~2007) HLD (hyperlipidemia) HTN (hypertension) Measles Mumps Osteopenia Presence of pessary (~2002) Rheumatoid arthritis (~2016) Seasonal allergies (~1949) Shoulder pain TIA (transient ischemic attack) (~2018) Tinnitus (~1949) Vision disorder Surgical History History of hernia repair (~2011) History of repair of ACL (~1999) History of right inguinal hernia repair History of tubal ligation (~1973) Melanoma in situ (~2007) Skin cancer, basal cell (~2016) Family History Father No problems noted. Mother Hypertension Heart disease Sepsis Stroke Sister Hypertension Grandmother Stroke Grandmother Cancer Family/Other Myocardial infarction Social History marital status: number of children: 2 household members: spouse housing: house education level: college occupational status: other Smoking Status: Never smoker alcohol intake: current substance use type: does not use Discharge Assessment & Plan Assessment and Plan Assessment: Doing well. Plan of Treatment: Follow-up in the office Discharge Plan Discharge Plan Patient Disposition: Home Provider Discharge Comment: You had a very early appendicitis. The operation went well. You may use Tylenol and /or Motrin in addition to or in place of the prescription pain medicine if you need it for pain. Discharge orders & Medications Prescriptions: New oxycodone 5 mg tablet 5 mg PO Q4H PRN (Reason: painful procedure) Qty: 10 RF: 0 Continued hydroxychloroquine 200 mg tablet 200 mg PO BID RF: 0 calcium carbonate 600 mg calcium (1,500 mg) tablet 600 mg PO DAILY Qty: 0 RF: 0 rosuvastatin [Crestor] 20 mg tablet 10 mg PO QPM Qty: 45 RF: 11 methotrexate sodium 2.5 mg tablet 7.5 mg PO PARKS RF: 0 clopidogrel 75 mg tablet 75 mg PO DAILY Qty: 90 RF: 3 oxyquinoline-sod.lauryl sulfat 0.025-0.01 % gel 1 ea vaginal .prn Qty: 113.4 RF: 2 estradiol 0.01 % (0.1 mg/gram) cream 0.5 g VAG .QHS PRN (Reason: pesery) RF: 0 metoprolol tartrate 25 mg tablet 25 mg PO DAILY RF: 0 hyoscyamine sulfate 0.125 mg tablet 0.125 mg PO BID-QID PRN (Reason: dyspepsia) Qty: 20 RF: 0 folic acid 1 mg Tablet 1 mg PO DAILY RF: 0 cholecalciferol (vitamin D3) [Vitamin D3] 2,000 unit Capsule 2,000 unit PO DAILY RF: 0 Follow up/Referrals: Michael Johns MD [Physician] - 2 Weeks ( call my office and make an appointment to see me in 1-2 weeks. If you need to reach a doctor please call our office. If it is after hours listen to the message and you will be instructed how to page the doctor on-call for our practice. Have a pen and paper ready to write the 1 800 number down.) Marely Sanchez DO [Primary Care Provider] - Diet/Activity/Treatments Diet: Diet as Tolerated Activity: Do not lift over 10 lb or strain for the next 4 weeks. You may walk. No pool or tub for at least 2 weeks. Skin/Wound/Dressing Care Report to your healthcare provider any signs of infection, such as:: chills, fever, increased pain, unusual drainage and unusual redness Dressing: You may remove the Band-Aids in 2 days and shower. Leave the tape under the Band-Aids which is directly on top of your skin fall off on their own. Discharge Data Primary Care Provider: Marely Sanchez VTE Deep Vein Thrombosis/Pulmonary Embolism Present on Admission: No
--- NOTE | 2020-12-03 11:17 | CM.IDA ---
Initial DCP Assessment Note Pt is a 80 yo female, resident of [place], now POD#1 from a lap appy by Dr Johns DC orders completed for home PCP: Marely Sanchez Payer: [employer] Reviewed chart; Met w/patient to introduce role. Patient is indp and active and feels confident about returning home w/spouse today to assist during her recovery. Dtr also loves nearby. 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 No needs expected from DC planning team although will remain available in case this changes today. GLADIS Patrick Discharge Planning/Care Management CM Discharge Assessment Start: 12/03/20 11:12 Freq: Status: Active Protocol: Document 12/03/20 11:12 JAMIE (Rec: 12/03/20 11:17 JAMIE [id number]) Discharge Planning Assessment Assigned Business Objects Architect GLADIS Patrick DPOA/Assigned Designee Name Xiang Moya, spouse Contact Information [phone], Advance Directives? Yes Advance Directives on File No History Provided By Patient Prior Living Arrangements House Household Members spouse Type of transporation used prior to Drives own vehicle admit Independent with ADL's Yes Is patient alert and oriented? Yes Barriers to Discharge No Comment Home w/spouse to assist as needed Transportation Arrangement Family Referrals Initiated None needed Whiteboard Updated in Patient Room with Yes name and ext. # of Business Objects Architect
== END 2020-12-03 11:20 | disposition home or self-care (01) ==
LOC: ED 13:09 → AC 15:12 → OR 12-03 12:37
PROVIDERS: Emergency Provider Emergency Medicine; Family Provider Family Medicine; PCP Family Medicine; Referring Provider Emergency Medicine; Visit Provider Specialist
PROC: 0DTJ4ZZ Resection of Appendix, Percutaneous Endoscopic Approach (ICD-10-PCS; CPT 44970; principal; 2020-12-02 13:30)
DX: K35.30 Acute appendicitis with localized peritonitis, without perforation or gangrene (principal); R10.31 Right lower quadrant pain; I10 Essential (primary) hypertension; Z86.73 Personal history of transient ischemic attack (TIA), and cerebral infarction without residual deficits
CPT/HCPCS: 44970; 36415; 36592; 80053; 81003; 83690; 85025; 96365; 99219; 99284; J1100; J1650; J1885; J2250; J2405; J2543; J2704; J3010

== ENCOUNTER → 2020-12-27 10:31 | Outpatient (CLI) | payer MEDICARE, OTHER, SELFPAY ==
[2020-12-02 13:17] VITALS: BMI 53.8
--- NOTE | 2020-12-27 | DI.MG.S_ITS ---
BILATERAL DIGITAL SCREENING MAMMOGRAM 3D/2D WITH CAD: 12/27/2020 CLINICAL: Routine screening. Comparison is made to exams dated: 11/20/2019 mammogram, 09/12/2017 mammogram, and 11/17/2018 mammogram - [facility]. The tissue of both breasts is heterogeneously dense. This may lower the sensitivity of mammography. Current study was also evaluated with a Computer Aided Detection (CAD) system. There is a benign focal asymmetry in the right breast. There is a mole marker on both breasts. No significant masses, calcifications, or other findings are seen in either breast. There has been no significant interval change. IMPRESSION: BENIGN There is no mammographic evidence of malignancy. A 1 year screening mammogram is recommended. This exam was interpreted at Station ID: [id number]. NOTE: For mammograms, a report in lay terms will be sent to the patient. Approximately 15% of breast malignancies will not be visualized mammographically. In the management of a palpable breast mass, a negative mammogram must not discourage biopsy of a clinically suspicious lesion. Electronically Signed By: Joshua Dominguez acr/penrad:12/27/2020 11:50:33 letter sent: Normal Exam ACR BI-RADS Category 2: Benign Finding(s) [id number]
--- NOTE | 2020-12-27 10:32 | DI.RAD.S_ITS ---
PROCEDURE: XR DEXA AXIAL SKELETON INDICATIONS: postmenopausal female COMPARISON: None. FINDINGS: This blank DEXA report has been sent in error by the PACS system. The correct and complete report will be forthcoming in 1-2 days. Thank you for your patience and understanding. Dictated by: Trinidad Zavala MD, PhD on 12/27/2020 at 11:22 Approved by: Trinidad Zavala MD, PhD on 12/27/2020 at 11:22
== END ==
PROVIDERS: Family Provider Family Medicine; PCP Family Medicine; Referring Provider Family Medicine; Visit Provider Family Medicine
DX: M85.852 Other specified disorders of bone density and structure, left thigh (principal); Z12.31 Encounter for screening mammogram for malignant neoplasm of breast; Z78.0 Asymptomatic menopausal state; M06.9 Rheumatoid arthritis, unspecified; E78.5 Hyperlipidemia, unspecified; Z82.62 Family history of osteoporosis
CPT/HCPCS: 77063; 77067; 77080

== ENCOUNTER → 2021-02-09 11:44 | Outpatient (CLI) | payer MEDICARE, OTHER, SELFPAY ==
[2020-12-02 13:17] VITALS: BMI 53.8
[2021-02-09 12:35] LABS: Appearance Urine UA CLEAR; Bilirubin Urine UA NEGATIVE (NEGATIVE); Color Urine UA YELLOW; Glucose Urine UA NEGATIVE (Negative); Ketones Urine UA NEGATIVE (NEGATIVE); Leukocyte Esterase Urine UA 3+ (NEGATIVE); Nitrite Urine UA NEGATIVE (Negative); Occult Blood Urine UA 3+ (Negative); Protein Urine UA NEGATIVE (Negative); Specific Gravity Urine UA <=1.005 (1.000-1.035); Urobilinogen Urine UA 0.2 E.U./dL (0.2)
[2021-02-09 13:28] LABS: Bacteria Urine Moderate (10-30); RBC Urine 1-5/HPF (0-5/HPF); Squamous Epithelial Cell Urine 1-5 /HPF (0-5/HPF); WBC Urine 30-100/HPF (0-5/HPF)
[2021-02-09 13:29] LABS: Culture Indicated Urine Specimen Cultured
== END ==
PROVIDERS: Family Provider Family Medicine; PCP Family Medicine; Referring Provider Family Medicine; Visit Provider Family Medicine
DX: R30.0 Dysuria (principal); R39.15 Urgency of urination; R35.0 Frequency of micturition
CPT/HCPCS: 81001; 87077; 87086; 87186

== ENCOUNTER → 2021-03-09 13:39 | Outpatient (CLI) | payer MEDICARE, OTHER, SELFPAY ==
[2020-12-02 13:17] VITALS: BMI 53.8
[2021-03-09 14:05] LABS: Add Manual Diff / Slide Review NO; Basophils Absolute Auto 0 /uL (0-100); Basophils Percent Auto 0.7 % (0-2); Eosinophils Absolute Auto 100 /uL (0-450); Eosinophils Percent Auto 2.7 % (2-4); Hematocrit 39.4 % (36-46); Hemoglobin 13.5 g/dL (12.0-16.0); Lymphocytes Absolute Auto 1400 /uL (1100-4500); Lymphocytes Percent Auto 25.4 % (25-40); Mean Corpuscular HGB Conc 34.3 % (30-36); Mean Corpuscular Volume 93.2 fL (80-100); Monocytes Absolute Auto 400 /uL (0-900); Monocytes Percent Auto 7.6 % (3-14); Neutrophils Absolute Auto 3400 /uL (1500-7000); Neutrophils Percent Auto 63.6 % (50-75); Platelet Count 212 X10^3/uL (150-400); Red Blood Cell Count 4.23 X10^6/uL (4.0-5.2); White Blood Cell Count 5.3 X10^3/uL (4.5-11.0)
[2021-03-09 16:13] LABS: Cholesterol 152 mg/dL (140-199); HDL Cholesterol 94 mg/dL (40-60); LDL Cholesterol Calculated 42 mg/dL (<100); Triglycerides 80 mg/dL (35-150)
[2021-03-09 16:15] LABS: Alanine Aminotransferase 34 IU/L (<35); Albumin 4.1 g/dL (3.5-5.0); Albumin Globulin Ratio 1.8 (1.0-2.8); Alkaline Phosphatase 41 U/L (38-126); Aspartate Aminotransferase 36 IU/L (14-36); BUN Creatinine Ratio 29.3 (6-22); Bilirubin Total 0.5 mg/dL (0.2-1.3); Blood Urea Nitrogen 27 mg/dL (7-17); Calcium 9.3 mg/dL (8.4-10.2); Carbon Dioxide 29 mmol/L (22-32); Chloride 109 mmol/L (98-107); Globulin 2.3 g/dL (1.7-4.1); Glucose 103 mg/dL (80-110); HEMOLYSIS < 15 (0-50); Potassium 4.1 mmol/L (3.4-5.1); Sodium 142 mmol/L (137-145); Total Protein 6.4 g/dL (6.3-8.2)
== END ==
PROVIDERS: Family Provider Family Medicine; PCP Family Medicine; Referring Provider Internal Medicine Rheumatology; Visit Provider Internal Medicine Rheumatology
DX: Z79.899 Other long term (current) drug therapy (principal); M05.29 Rheumatoid vasculitis with rheumatoid arthritis of multiple sites; E78.5 Hyperlipidemia, unspecified
CPT/HCPCS: 36415; 80053; 80061; 85025

== ENCOUNTER → 2021-08-06 15:58 | Outpatient (CLI) | payer MEDICARE, OTHER, SELFPAY ==
[2020-12-02 13:17] VITALS: BMI 53.8
[2021-08-06 16:45] LABS: Add Manual Diff / Slide Review NO; Basophils Absolute Auto 0 /uL (0-100); Basophils Percent Auto 1.3 % (0-2); Eosinophils Absolute Auto 100 /uL (0-450); Eosinophils Percent Auto 2.8 % (2-4); Hematocrit 38.2 % (36-46); Hemoglobin 13.3 g/dL (12.0-16.0); Lymphocytes Absolute Auto 1500 /uL (1100-4500); Lymphocytes Percent Auto 38.2 % (25-40); Mean Corpuscular HGB Conc 34.8 % (30-36); Mean Corpuscular Hemoglobin 32.4 PG (26-34); Monocytes Absolute Auto 400 /uL (0-900); Monocytes Percent Auto 8.9 % (3-14); Neutrophils Absolute Auto 1900 /uL (1500-7000); Neutrophils Percent Auto 48.8 % (50-75); Platelet Count 213 X10^3/uL (150-400); Red Cell Distribution Width 13.2 % (11.6-14.8)
[2021-08-06 17:10] LABS: Alanine Aminotransferase 30 IU/L (<35); Albumin 4.1 g/dL (3.5-5.0); Albumin Globulin Ratio 1.7 (1.0-2.8); Alkaline Phosphatase 41 U/L (38-126); Aspartate Aminotransferase 37 IU/L (14-36); BUN Creatinine Ratio 29.4 (6-22); Bilirubin Total 0.3 mg/dL (0.2-1.3); Blood Urea Nitrogen 25 mg/dL (7-17); Calcium 8.7 mg/dL (8.4-10.2); Carbon Dioxide 28 mmol/L (22-32); Chloride 108 mmol/L (98-107); Estimated Glomerular Filt Rate > 60 mL/min (>60); Globulin 2.4 g/dL (1.7-4.1); Glucose 81 mg/dL (80-110); HEMOLYSIS < 15 (0-50); Potassium 4.2 mmol/L (3.4-5.1); Sodium 140 mmol/L (137-145); Total Protein 6.5 g/dL (6.3-8.2)
[2021-08-06 17:34] LABS: TSH w/ Reflex to FT4 2.38 uIU/mL (0.47-4.68)
== END ==
PROVIDERS: Family Provider Family Medicine; PCP Family Medicine; Referring Provider Family Medicine; Visit Provider Family Medicine
DX: R63.4 Abnormal weight loss (principal)
CPT/HCPCS: 36415; 80053; 84443; 85025

== ENCOUNTER → 2021-11-29 09:54 | Outpatient (CLI) | payer MEDICARE, OTHER, SELFPAY ==
[2020-12-02 13:17] VITALS: BMI 53.8
[2021-11-29 12:30] LABS: Add Manual Diff / Slide Review NO; Basophils Absolute Auto 0 /uL (0-100); Basophils Percent Auto 0.9 % (0-2); Eosinophils Absolute Auto 100 /uL (0-450); Hematocrit 40.5 % (36-46); Lymphocytes Absolute Auto 1200 /uL (1100-4500); Lymphocytes Percent Auto 25.2 % (25-40); Mean Corpuscular HGB Conc 34.4 % (30-36); Mean Corpuscular Volume 92.9 fL (80-100); Monocytes Absolute Auto 300 /uL (0-900); Neutrophils Absolute Auto 3100 /uL (1500-7000); Neutrophils Percent Auto 64.9 % (50-75); Platelet Count 218 X10^3/uL (150-400); Red Blood Cell Count 4.36 X10^6/uL (4.0-5.2); Red Cell Distribution Width 12.6 % (11.6-14.8); White Blood Cell Count 4.8 X10^3/uL (4.5-11.0)
[2021-11-29 12:36] LABS: Alanine Aminotransferase 34 IU/L (<35); Albumin 4.3 g/dL (3.5-5.0); Albumin Globulin Ratio 1.7 (1.0-2.8); Alkaline Phosphatase 45 U/L (38-126); Aspartate Aminotransferase 41 IU/L (14-36); Bilirubin Total 0.8 mg/dL (0.2-1.3); Blood Urea Nitrogen 20 mg/dL (7-17); Calcium 8.8 mg/dL (8.4-10.2); Carbon Dioxide 29 mmol/L (22-32); Chloride 105 mmol/L (98-107); Estimated Glomerular Filt Rate > 60 mL/min (>60); Globulin 2.6 g/dL (1.7-4.1); Glucose 82 mg/dL (80-110); HEMOLYSIS < 15 (0-50); Potassium 4.3 mmol/L (3.4-5.1); Sodium 140 mmol/L (137-145); Total Protein 6.9 g/dL (6.3-8.2)
== END ==
PROVIDERS: Family Provider Family Medicine; PCP Family Medicine; Referring Provider Internal Medicine Rheumatology; Visit Provider Internal Medicine Rheumatology
DX: M05.79 Rheumatoid arthritis with rheumatoid factor of multiple sites without organ or systems involvement (principal); Z79.899 Other long term (current) drug therapy
CPT/HCPCS: 36415; 80053; 85025

== ENCOUNTER 2022-05-31 08:42 | Emergency (ER) | payer MEDICARE, OTHER, SELFPAY ==
[2020-12-02 13:17] VITALS: BMI 53.8
[2022-05-31] VITALS (12 sets, daily range): BP systolic 134–186; BP diastolic 64–81; PULSE 52–66; RESP 15–20; TEMP 36.2; O2SAT 95–100
--- NOTE | 2022-05-31 09:33 | DI.RAD.S_ITS ---
PROCEDURE: XR CHEST 1V INDICATIONS: chest pain TECHNIQUE: One view of the chest was acquired. COMPARISON: [facility], CR, XR CHEST 1V, 09/11/2018, 11:45. FINDINGS: Surgical changes and devices: None. Lungs and pleura: Lungs are clear. No pleural effusions or pneumothorax. Mediastinum: Mediastinal contours appear normal. Heart size is normal. Bones and chest wall: No suspicious bony lesions. Overlying soft tissues appear unremarkable. IMPRESSION: No evidence acute pulmonary process. Dictated by: Mp Rodriguez M.D. on 05/31/2022 at 10:01 Approved by: Mp Rodriguez M.D. on 05/31/2022 at 10:01
--- NOTE | 2022-05-31 09:46 | ED_ITS ---
HPI - Neuro Symptoms/Deficit General Chief Complaint: Neuro Symptoms/Deficit Stated Complaint: thinks she had a TIA T-2 Time Seen by Provider: 05/31/22 09:39 Source: patient Mode of arrival: Ambulatory History of Present Illness HPI Narrative: Patient is a 81-year-old female history of rheumatoid arthritis, hyperlipidemia, TIA, hypertension presenting today with left shoulder pain and left arm weakness. She reports that they have been under a lot of stress they are currently building house they are doing some actual physical labor for this house. She reports that she is sleeping and vacuuming quite a lot. She is right-hand dominant. For the last 2 days she is had increased pain left shoulder. She has had increased left hand weakness she feels like her hand is swollen he is unable to make a fist. She has extreme pain when she attempts to lift her left shoulder. She denies any other symptoms no chest pain no headache no leg weakness. Previously when she had her TIA her symptoms were speech difficulty. On Anticoagulants: Yes (plavix) Related Data Home Medications Medication Instructions Recorded Confirmed cholecalciferol (vitamin D3) 50 2,000 unit PO DAILY 09/11/18 03/21/22 mcg (2,000 unit) capsule (Vitamin D3) folic acid 1 mg tablet 1 mg PO DAILY 09/11/18 03/21/22 calcium carbonate 600 mg calcium 600 mg PO DAILY #0 tabs 07/22/19 03/21/22 (1,500 mg) tablet hydroxychloroquine 200 mg tablet 200 mg PO DAILY 08/06/21 03/21/22 methotrexate sodium 2.5 mg tablet 7.5 mg PO QWEEK 08/06/21 03/21/22 Previous Rx's Medication Instructions Recorded oxyquinoline 0.025 %-sodium lauryl 1 ea vaginal .prn #113.4 grams 10/24/20 sulfate 0.01 % vaginal gel clopidogrel 75 mg tablet 75 mg PO DAILY #90 tabs 07/12/21 doxepin 10 mg/mL oral concentrate 5 mg (0.5 mL) PO DAILY PRN 11/12/21 insomnia #118 mL estradiol 0.01% (0.1 mg/gram) 0.5 g vaginal .QHS PRN pesery 11/13/21 vaginal cream #42.5 grams metoprolol tartrate 25 mg tablet See Rx Instructions .Route 02/28/22 .COMPLEX #180 tabs rosuvastatin 20 mg tablet See Rx Instructions .Route 05/06/22 .COMPLEX #45 tabs Allergies Allergy/AdvReac Type Severity Reaction Status Date / Time chlorhexidine Allergy Mild rash Verified 05/31/22 09:34 morphine AdvReac Mild ITCHING Verified 05/31/22 09:34 povidone-iodine AdvReac Mild Redness Verified 05/31/22 09:34 [From BETADINE] soap [From BETADINE] AdvReac Mild Redness Verified 05/31/22 09:34 Review of Systems Review of Systems ROS Unobtainable: All systems reviewed & are unremarkable except as noted in HPI and below Hematologic/Lymphatic On Anticoagulants: Yes (plavix) Patient History Medical History Actinic keratosis Chicken pox Fever (~2001) Gout (~2016) Hearing loss Herniated disc (~2007) HLD (hyperlipidemia) HTN (hypertension) Measles Mumps Osteopenia Presence of pessary (~2002) Rheumatoid arthritis (~2016) Seasonal allergies (~1949) Shoulder pain TIA (transient ischemic attack) (~2018) Tinnitus (~1949) Vision disorder Surgical History History of hernia repair (~2011) History of repair of ACL (~1999) History of right inguinal hernia repair History of tubal ligation (~1973) Melanoma in situ (~2007) Skin cancer, basal cell (~2016) Family History Father No problems noted. Mother Hypertension Heart disease Sepsis Stroke Sister Hypertension Grandmother Stroke Grandmother Cancer Family/Other Myocardial infarction Social History marital status: number of children: 2 household members: spouse housing: house education level: college occupational status: other Smoking Status: Never smoker alcohol intake: current substance use type: does not use Smoking Status: Never smoker alcohol intake frequency: a few times a month Substance Use Type: does not use Exam Initial Vital Signs Initial Vital Signs: Vital Signs Blood Pressure 171/81 H 05/31/22 09:18 GENERAL: Alert pleasant well-appearing 81-year-old female HEENT: Head atraumatic,EOMI, pupils reactive, face symmetric, moist mucous membranes CARDIOVASCULAR: Regular rate and rhythm without murmurs, rubs or gallops. RESPIRATORY: Breath sounds equal bilaterally, no wheezes rales or rhonchi. ABDOMEN: Soft, nontender. Normoactive bowel sounds all 4 quadrants. No guarding or rebound. EXTREMITIES: Normal range of motion, no clubbing or edema. 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 Cranial nerves II through XII grossly intact. Good [id number], good [id number], decreased strength in left hand, no dysarthria or aphasia, sensation in tact to soft touch bilaterally, no visual changes, no facial droop SKIN: Warm, dry, no laceration, no petechiae, no rashes or lesions. Scores NIH Stroke Scale Level of Conciousness: Alert, keenly responsive Ask month/age: Answers both questions correctly. Open/close eyes, close hand: Performs both tasks correctly Best gaze horizontal: Normal Visual fowler: No visual loss Facial palsy: Normal symetrical movement Left arm drift: No drift for full 10 sec Right arm drift: No drift for full 10 sec Left leg drift: No drift for full 5 sec Right leg drift: No drift for full 5 sec Limb ataxia: Absent Sensory on face/arms/legs: Mild to moderate sensory loss, can tell touch Best language: No aphasia, normal Dysarthria: Normal Extinction or inattention: No abnormality Total NIH Stroke scale score: 1 Course Orders Ordered: Discontinued Medications Ketorolac Tromethamine (Ketorolac 30 Mg/Ml Vial) 15 mg IV NOW ONE Stop: 05/31/22 10:23 Last Admin: 05/31/22 10:29 Dose: 15 mg Documented By: IGLESIA Vital Signs Vital signs: Vital Signs - 8 hr 05/31/22 09:20 05/31/22 09:18 05/31/22 09:19 Temperature 97.1 F L Pulse Rate 56 L 66 Respiratory Rate 15 Blood Pressure 171/81 H 171/81 H Pulse Oximetry 100 98 Oxygen Delivery Method Room Air 05/31/22 09:30 05/31/22 09:31 05/31/22 09:31 Temperature Pulse Rate 55 L 52 L Respiratory Rate 20 20 Blood Pressure 186/79 H Pulse Oximetry 100 100 Oxygen Delivery Method 05/31/22 10:00 05/31/22 10:01 05/31/22 10:01 Temperature Pulse Rate 61 61 Respiratory Rate 20 20 Blood Pressure 161/76 H Pulse Oximetry 98 98 Oxygen Delivery Method MDM - Neuro Symptoms/Deficit Lab Data 05/31/22 09:30 05/31/22 09:30 Labs: Lab Results 05/31/22 05/31/22 05/31/22 Range/Units 09:30 09:30 09:30 WBC 6.8 (4.5-11.0) X10^3/uL RBC 4.41 (4.0-5.2) X10^6/uL Hgb 14.1 (12.0-16.0) g/dL Hct 41.6 (36-46) % MCV 94.3 (80-100) fL MCH 31.9 (26-34) PG MCHC 33.9 (30-36) % RDW 13.4 (11.6-14.8) % Plt Count 229 (150-400) X10^3/uL Neut % (Auto) 68.7 (50-75) % Lymph % (Auto) 21.1 L (25-40) % [place] % (Auto) 8.3 (3-14) % Eos % (Auto) 1.4 L (2-4) % Baso % (Auto) 0.5 (0-2) % Neut # (Auto) 4700 (2889-3432) /uL Lymph # (Auto) 1400 (2537-2627) /uL [place] # (Auto) 600 (0-900) /uL Eos # (Auto) 100 (0-450) /uL Baso # (Auto) 0 (0-100) /uL PT 14.1 H (10.1-12.7) SECONDS INR 1.2 (0.9-1.3) APTT 33 (26-36) SECONDS Sodium 138 (137-145) mmol/L Potassium 4.1 (3.4-5.1) mmol/L Chloride 105 (98-107) mmol/L Carbon Dioxide 28 (22-32) mmol/L BUN 17 (7-17) mg/dL Creatinine 0.67 (0.52-1.04) mg/dL Estimated GFR > 60 (>60) mL/min BUN/Creatinine Ratio 25.4 H (6-22) Glucose 86 (80-110) mg/dL Calcium 9.0 (8.4-10.2) mg/dL Magnesium 1.8 (1.6-2.3) mg/dL Total Bilirubin 1.0 (0.2-1.3) mg/dL AST 49 H (14-36) IU/L ALT 28 (<35) IU/L Alkaline Phosphatase 56 (38-126) U/L Total Creatine Kinase 125 (30-135) U/L CK-MB (CK-2) 2.32 (<2.37) ng/mL CK-MB (CK-2) Rel Index 1.9 (1.5-5.0) % Troponin I < 0.012 (0.01-0.034) ng/mL Total Protein 7.0 (6.3-8.2) g/dL Albumin 4.2 (3.5-5.0) g/dL Globulin 2.8 (1.7-4.1) g/dL Albumin/Globulin Ratio 1.5 (1.0-2.8) Lipase 65 (23-300) U/L Imaging Data Chest x-ray: Radiologist's Impression: PROCEDURE:? XR CHEST 1V ? INDICATIONS:? chest pain ? TECHNIQUE:? One view of the chest was acquired.? ? COMPARISON:? [facility], , XR CHEST 1V, 09/11/2018, 11:45. ? FINDINGS:? ? Surgical changes and devices:? None.? ? Lungs and pleura:? Lungs are clear.? No pleural effusions or pneumothorax.? ? Mediastinum:? Mediastinal contours appear normal.? Heart size is normal.? ? Bones and chest wall:? No suspicious bony lesions.? Overlying soft tissues appear unremarkable.? ? IMPRESSION:? No evidence acute pulmonary process. ? ? ? Dictated by: Mp Rodriguez M.D. on 05/31/2022 at 10:01? Extremity x-ray #1: Radiologist's Impression: PROCEDURE:? XR SHOULDER LT MIN 2V ? INDICATIONS:? pain swelling ? TECHNIQUE:? 4 views of the shoulder were acquired.? ? COMPARISON:? [facility], , XR SHOULDER RT MIN 2V, 07/26/2019, 9:00. ? FINDINGS:? ? Bones:? No fractures or dislocations.? No suspicious bony lesions.? Visualized ribs appear intact.? Severe arthritic change of the glenohumeral joint with severe joint space loss. ? Soft tissues:? No suspicious soft tissue calcifications.? ? IMPRESSION:? Severe glenohumeral joint arthritic change. ? No evidence acute bony abnormality of the left shoulder. ? If clinical suspicion and/or symptoms persist, further assessment with repeat plain films, or advanced imaging (e.g., CT, MRI, or bone scan) may be helpful for further assessment. ? Dictated by: Mp Rodriguez M.D. on 05/31/2022 at 11:14 ? ? ECG Data Interpretation: Sinus rhythm rate 48 MA interval 148 QRS [address] changes no T-wave inversions MDM Narrative Medical decision making narrative: Patient is 81-year-old female history of rheumatoid arthritis TIA presenting with 3 days of left shoulder pain and weakness. She definitely has decreased range of motion and weakness, but it is quite painful to palpate and to move. I do not suspect CVA or TIA at this time. She would certainly be out of window for tPA it has been ongoing for 2 days. X-ray shows significant arthritis he is given Toradol here in the ED. she actually has significant improvement in his able to move it but her hands still is little bit swollen. Blood work is sent does not show any obvious abnormality, and head CT is negative. I suspect more overuse and arthritis rather than neurologic problem. Discharge Plan Departure Patient Disposition: Home Clinical Impression: Arthritis Instructions: DI for Arthritis Activity Restrictions/Additional Instructions: *You have been diagnosed with arthritis *What to do: At this time ice and rest. I do not believe this to be a stroke. *Continue to take medications as directed Ibuprofen mg every 6 hours if needed for pain Tylenol 1000 mg every 6 hours if needed for pain *Follow up with your primary care provider in 2-3 days or call [phone] *Return to ER if you should have increasing pain numbness tingling weakness or any new, worsening or concerning symptoms Prescriptions: No Action doxepin 10 mg/mL concentrate 5 mg PO DAILY PRN (Reason: insomnia) Qty: 118 0RF calcium carbonate 600 mg calcium (1,500 mg) tablet 600 mg PO DAILY Qty: 0 hydroxychloroquine 200 mg tablet 200 mg PO DAILY clopidogrel 75 mg tablet 75 mg PO DAILY Qty: 90 3RF methotrexate sodium 2.5 mg tablet 7.5 mg PO QWEEK Rx Instructions: 3 x weekly metoprolol tartrate 25 mg tablet See Rx Instructions .ROUTE .COMPLEX Qty: 180 1RF Dose Instruction: TAKE ONE TABLET BY MOUTH TWICE DAILY Rx Instructions: TAKE ONE TABLET BY MOUTH TWICE DAILY rosuvastatin 20 mg tablet See Rx Instructions .ROUTE .COMPLEX Qty: 45 3RF Dose Instruction: take 1/2 tablet by mouth in the evening Rx Instructions: take 1/2 tablet by mouth in the evening oxyquinoline-sod.lauryl sulfat 0.025-0.01 % gel 1 ea vaginal .prn Qty: 113.4 2RF Rx Instructions: Weekly PRN for use with pessary estradiol 0.01 % (0.1 mg/gram) cream 0.5 g VAG .QHS PRN (Reason: pesery) Qty: 42.5 2RF Rx Instructions: Insert 0.5g vaginally 2 times weekly folic acid 1 mg Tablet 1 mg PO DAILY cholecalciferol (vitamin D3) [Vitamin D3] 2,000 unit Capsule 2,000 unit PO DAILY Referrals: Marely Sanchez DO [Primary Care Provider] - Stand Alone Forms: Patient Portal/API
[2022-05-31 09:49] LABS: Add Manual Diff / Slide Review NO; Basophils Absolute Auto 0 /uL (0-100); Basophils Percent Auto 0.5 % (0-2); Eosinophils Absolute Auto 100 /uL (0-450); Eosinophils Percent Auto 1.4 % (2-4); Hematocrit 41.6 % (36-46); Hemoglobin 14.1 g/dL (12.0-16.0); INR 1.2 (0.9-1.3); Lymphocytes Absolute Auto 1400 /uL (1100-4500); Lymphocytes Percent Auto 21.1 % (25-40); Mean Corpuscular HGB Conc 33.9 % (30-36); Mean Corpuscular Hemoglobin 31.9 PG (26-34); Mean Corpuscular Volume 94.3 fL (80-100); Monocytes Absolute Auto 600 /uL (0-900); Monocytes Percent Auto 8.3 % (3-14); Neutrophils Absolute Auto 4700 /uL (1500-7000); Neutrophils Percent Auto 68.7 % (50-75); Platelet Count 229 X10^3/uL (150-400); Prothrombin Time 14.1 SECONDS (10.1-12.7); Red Blood Cell Count 4.41 X10^6/uL (4.0-5.2); Red Cell Distribution Width 13.4 % (11.6-14.8); White Blood Cell Count 6.8 X10^3/uL (4.5-11.0)
[2022-05-31 09:52] LABS: PTT Partial Thromboplastin Tim 33 SECONDS (26-36)
[2022-05-31 09:57] LABS: Alanine Aminotransferase 28 IU/L (<35); Albumin 4.2 g/dL (3.5-5.0); Albumin Globulin Ratio 1.5 (1.0-2.8); Alkaline Phosphatase 56 U/L (38-126); Aspartate Aminotransferase 49 IU/L (14-36); BUN Creatinine Ratio 25.4 (6-22); Blood Urea Nitrogen 17 mg/dL (7-17); Carbon Dioxide 28 mmol/L (22-32); Chloride 105 mmol/L (98-107); Creatine Kinase 125 U/L (30-135); Estimated Glomerular Filt Rate > 60 mL/min (>60); Globulin 2.8 g/dL (1.7-4.1); Glucose 86 mg/dL (80-110); Lipase 65 U/L (23-300); Magnesium 1.8 mg/dL (1.6-2.3); Potassium 4.1 mmol/L (3.4-5.1); Sodium 138 mmol/L (137-145)
--- NOTE | 2022-05-31 10:04 | PC.NURSE ---
when completing nih and neurological assmt pt unable to lift left arm up fully even with right and pt grimacing, pain to upper arm and left shoulder area. RN able to assist to raise arms even held in front of body and pt able to keep both arms up equally without drift. NIH 0 from that state. no ataxia to left side. notified
[2022-05-31 10:10] LABS: Troponin I < 0.012 ng/mL (0.01-0.034)
[2022-05-31 10:12] LABS: CKMB % Relative Index 1.9 % (1.5-5.0); Creatine Kinase MB 2.32 ng/mL (<2.37); HEMOLYSIS 21 (0-50)
--- NOTE | 2022-05-31 10:22 | DI.RAD.S_ITS ---
PROCEDURE: XR SHOULDER LT MIN 2V INDICATIONS: pain swelling TECHNIQUE: 4 views of the shoulder were acquired. COMPARISON: [facility], CR, XR SHOULDER RT MIN 2V, 07/26/2019, 9:00. FINDINGS: Bones: No fractures or dislocations. No suspicious bony lesions. Visualized ribs appear intact. Severe arthritic change of the glenohumeral joint with severe joint space loss. Soft tissues: No suspicious soft tissue calcifications. IMPRESSION: Severe glenohumeral joint arthritic change. No evidence acute bony abnormality of the left shoulder. If clinical suspicion and/or symptoms persist, further assessment with repeat plain films, or advanced imaging (e.g., CT, MRI, or bone scan) may be helpful for further assessment. Dictated by: Mp Rodriguez M.D. on 05/31/2022 at 11:14 Approved by: pM Rodriguez M.D. on 05/31/2022 at 11:15
[2022-05-31] MEDS: KETOROLAC 30 MG/ML VIAL 15 MG IV (10:29)
== END 2022-05-31 12:20 | disposition home or self-care (01) ==
PROVIDERS: Emergency Provider Emergency Medicine; Family Provider Family Medicine; PCP Family Medicine
DX: M19.012 Primary osteoarthritis, left shoulder (principal); R07.9 Chest pain, unspecified; R29.701 NIHSS score 1; Z79.01 Long term (current) use of anticoagulants
CPT/HCPCS: 36415; 71045; 73030; 80053; 82550; 82553; 83690; 83735; 84484; 85025; 85610; 85730; 93005; 96374; 99284; 99285; J1885

== ENCOUNTER → 2022-08-27 08:33 | Outpatient (CLI) | payer MEDICARE, OTHER, SELFPAY ==
[2020-12-02 13:17] VITALS: BMI 53.8
[2022-08-27 10:20] LABS: Alanine Aminotransferase 29 IU/L (<35); Albumin Globulin Ratio 1.5 (1.0-2.8); Alkaline Phosphatase 39 U/L (38-126); Aspartate Aminotransferase 35 IU/L (14-36); BUN Creatinine Ratio 34.4 (6-22); Bilirubin Total 0.7 mg/dL (0.2-1.3); Blood Urea Nitrogen 22 mg/dL (7-17); Carbon Dioxide 31 mmol/L (22-32); Chloride 103 mmol/L (98-107); Cholesterol 137 mg/dL (140-199); Estimated Glomerular Filt Rate > 60 mL/min (>60); Globulin 2.7 g/dL (1.7-4.1); Glucose 74 mg/dL (80-110); HDL Cholesterol 78 mg/dL (40-60); HEMOLYSIS 24 (0-50); LDL Cholesterol Calculated 47 mg/dL (<100); Potassium 4.2 mmol/L (3.4-5.1); Sodium 138 mmol/L (137-145); Total Protein 6.7 g/dL (6.3-8.2); Triglycerides 58 mg/dL (35-150)
== END ==
PROVIDERS: Family Provider Family Medicine; PCP Family Medicine; Referring Provider Family Medicine; Visit Provider Family Medicine
DX: I10 Essential (primary) hypertension (principal); M06.9 Rheumatoid arthritis, unspecified; E78.5 Hyperlipidemia, unspecified
CPT/HCPCS: 36415; 80053; 80061

== ENCOUNTER → 2022-10-09 09:02 | Outpatient (CLI) | payer MEDICARE, OTHER, SELFPAY ==
[2020-12-02 13:17] VITALS: BMI 53.8
--- NOTE | 2022-10-09 09:03 | DI.MG.S_ITS ---
BILATERAL DIGITAL SCREENING MAMMOGRAM 3D/2D WITH CAD: 10/09/2022 CLINICAL: Routine screening. Comparison is made to exams dated: 11/20/2019 mammogram, 12/27/2020 mammogram, and 11/17/2018 mammogram - [facility]. Both breasts are heterogeneously dense, which may obscure small masses (category c / 51-75% glandular tissue). Current study was also evaluated with a Computer Aided Detection (CAD) system. There is a benign focal asymmetry in the right breast. There is a mole marker on both breasts. No significant masses, calcifications, or other findings are seen in either breast. There has been no significant interval change. IMPRESSION: BENIGN There is no mammographic evidence of malignancy. A 1 year screening mammogram is recommended. Based on the Tyrer Cuzick model (a risk assessment model) the patient's lifetime risk is 2.2% and her 10 year risk is 0.0%. According to the ACR, ACS, and NCCN guidelines, an annual breast MRI exam along with mammogram is recommended if the patient's lifetime risk is 20% or greater. This exam was interpreted at Station ID: [id number]. NOTE: For mammograms, a report in lay terms will be sent to the patient. Approximately 15% of breast malignancies will not be visualized mammographically. In the management of a palpable breast mass, a negative mammogram must not discourage biopsy of a clinically suspicious lesion. Electronically Signed By: Neil henning/john:10/09/2022 09:35:57 letter sent: Normal Exam ACR BI-RADS Category 2: Benign Finding(s) 3342F
== END ==
PROVIDERS: Family Provider Family Medicine; PCP Family Medicine; Referring Provider Family Medicine; Visit Provider Family Medicine
DX: Z12.31 Encounter for screening mammogram for malignant neoplasm of breast (principal)
CPT/HCPCS: 77063; 77067

== ENCOUNTER → 2022-11-12 14:53 | Outpatient (CLI) | payer MEDICARE, OTHER, SELFPAY ==
[2020-12-02 13:17] VITALS: BMI 53.8
[2022-11-12 16:08] LABS: Add Manual Diff / Slide Review NO; Basophils Absolute Auto 0 /uL (0-100); Basophils Percent Auto 0.8 % (0-2); Eosinophils Absolute Auto 100 /uL (0-450); Eosinophils Percent Auto 2.6 % (2-4); Hematocrit 38.1 % (36-46); Hemoglobin 13.2 g/dL (12.0-16.0); Lymphocytes Absolute Auto 1500 /uL (1100-4500); Lymphocytes Percent Auto 30.5 % (25-40); Mean Corpuscular HGB Conc 34.7 % (30-36); Mean Corpuscular Hemoglobin 32.6 PG (26-34); Mean Corpuscular Volume 93.9 fL (80-100); Monocytes Absolute Auto 400 /uL (0-900); Monocytes Percent Auto 7.1 % (3-14); Neutrophils Absolute Auto 3000 /uL (1500-7000); Platelet Count 216 X10^3/uL (150-400); Red Blood Cell Count 4.06 X10^6/uL (4.0-5.2)
[2022-11-12 16:35] LABS: Alanine Aminotransferase 32 IU/L (<35); Albumin 3.9 g/dL (3.5-5.0); Albumin Globulin Ratio 1.8 (1.0-2.8); Alkaline Phosphatase 42 U/L (38-126); Aspartate Aminotransferase 34 IU/L (14-36); BUN Creatinine Ratio 27.5 (6-22); Bilirubin Total 0.4 mg/dL (0.2-1.3); Blood Urea Nitrogen 22 mg/dL (7-17); Calcium 8.7 mg/dL (8.4-10.2); Carbon Dioxide 29 mmol/L (22-32); Chloride 106 mmol/L (98-107); Estimated Glomerular Filt Rate > 60 mL/min (>60); Globulin 2.2 g/dL (1.7-4.1); Glucose 85 mg/dL (80-110); HEMOLYSIS < 15 (0-50); Potassium 4.3 mmol/L (3.4-5.1); Sodium 140 mmol/L (137-145); Total Protein 6.1 g/dL (6.3-8.2)
== END ==
PROVIDERS: Family Provider Family Medicine; PCP Family Medicine; Referring Provider Internal Medicine Rheumatology; Visit Provider Internal Medicine Rheumatology
DX: M05.79 Rheumatoid arthritis with rheumatoid factor of multiple sites without organ or systems involvement (principal); Z79.899 Other long term (current) drug therapy
CPT/HCPCS: 36415; 80053; 85025

== ENCOUNTER → 2023-06-04 09:30 | Outpatient (CLI) | payer MEDICARE, OTHER, SELFPAY ==
[2020-12-02 13:17] VITALS: BMI 53.8
[2023-06-04 10:18] LABS: Add Manual Diff / Slide Review NO; Basophils Absolute Auto 0 /uL (0-100); Basophils Percent Auto 0.9 % (0-2); Eosinophils Absolute Auto 200 /uL (0-450); Eosinophils Percent Auto 3.4 % (2-4); Hematocrit 40.1 % (36-46); Hemoglobin 13.8 g/dL (12.0-16.0); Lymphocytes Absolute Auto 1400 /uL (1100-4500); Lymphocytes Percent Auto 27.1 % (25-40); Mean Corpuscular HGB Conc 34.3 % (30-36); Mean Corpuscular Hemoglobin 32.6 PG (26-34); Mean Corpuscular Volume 94.9 fL (80-100); Monocytes Absolute Auto 400 /uL (0-900); Monocytes Percent Auto 8.2 % (3-14); Neutrophils Absolute Auto 3200 /uL (1500-7000); Neutrophils Percent Auto 60.4 % (50-75); Platelet Count 263 X10^3/uL (150-400); Red Blood Cell Count 4.22 X10^6/uL (4.0-5.2); White Blood Cell Count 5.3 X10^3/uL (4.5-11.0)
[2023-06-04 10:40] LABS: Alanine Aminotransferase 31 IU/L (<35); Albumin 4.1 g/dL (3.5-5.0); Albumin Globulin Ratio 1.5 (1.0-2.8); Alkaline Phosphatase 41 U/L (38-126); Aspartate Aminotransferase 40 IU/L (14-36); Bilirubin Total 0.7 mg/dL (0.2-1.3); Blood Urea Nitrogen 21 mg/dL (7-17); Calcium 9.1 mg/dL (8.4-10.2); Carbon Dioxide 31 mmol/L (22-32); Chloride 107 mmol/L (98-107); Estimated Glomerular Filt Rate > 60 mL/min (>60); Globulin 2.7 g/dL (1.7-4.1); Glucose 63 mg/dL (80-110); Potassium 4.3 mmol/L (3.4-5.1); Sodium 140 mmol/L (137-145); Total Protein 6.8 g/dL (6.3-8.2)
[2023-06-04 10:41] LABS: HEMOLYSIS 56 (0-50)
== END ==
PROVIDERS: Family Provider Family Medicine; PCP Family Medicine; Referring Provider Internal Medicine Rheumatology; Visit Provider Internal Medicine Rheumatology
DX: M05.79 Rheumatoid arthritis with rheumatoid factor of multiple sites without organ or systems involvement (principal); Z79.899 Other long term (current) drug therapy
CPT/HCPCS: 36415; 80053; 85025

== ENCOUNTER 2023-11-11 12:42 | Day surgery (SDC) | payer MEDICARE, OTHER, SELFPAY ==
[2020-12-02 13:17] VITALS: BMI 53.8
--- NOTE | 2023-11-11 | PATH_ITS ---
[facility] Accession Number: [id number] No. of containers..01 Tissue . 01 Material submitted: . colon - SIGMOID POLYP . 01 Clinical history: . RECTAL POLYP ON JAR PER OP NOTES SPECIMEN IS FROM SIGMOID COLON AG 11 12 23 . 01 Diagnosis: SIGMOID POLYP: Tubulovillous adenoma. No high-grade dysplasia or malignancy identified. [facility] 11/14/2023 1341 Local . 01 Electronically signed: . Abiel Adame MD, Pathologist NPI- [id number] . 01 Gross description: . Received in formalin with two patient identifiers and rectal polyp (requisition states sigmoid polyp, OP note confirms sigmoid is the correct site), is a brown irregular soft tissue fragment, 1.6 x 1.2 x 1.1 cm. Inked blue, serially sectioned, and submitted entirely in A1. ([id number]) /MRV 11/14/2023 1341 Local . 01 Pathologist provided ICD-10: D12.5 . 01 CPT . 914261 Specimen Comment: A courtesy copy of this report has been sent to [phone] Performed at: [address] [id number] MD Abiel Adame MD Phone: [phone]
[2023-11-11] MEDS: LACTATED RINGERS 1,000 ML 42 ML IV (13:03)
[2023-11-11 13:09] VITALS: BP 129/79; PULSE 70; RESP 18; TEMP 37.2; O2SAT 97
--- NOTE | 2023-11-11 13:17 | P.HP_ITS ---
History of Present Illness History of Present Illness Date Patient Seen: 11/11/23 Time Patient Seen: 13:18 Chief complaint: Dx Colonoscopy w/poss bx Narrative: 82-year-old woman here for diagnostic colonoscopy. Recent episode of rectal bleeding described as bright red. Last colonoscopy 10-20 years ago notable for polyps. No family history of colon cancer. No abdominal concerns today. [facility] Medical History Osteoarthritis of glenohumeral joint HLD (hyperlipidemia) HTN (hypertension) TIA (transient ischemic attack) (~2018) Vision disorder Hearing loss Actinic keratosis Rheumatoid arthritis (~2016) Fever (~2001) Seasonal allergies (~1949) Herniated disc (~2007) Shoulder pain Osteopenia Gout (~2016) Mumps Measles Chicken pox Tinnitus (~1949) Presence of pessary (~2002) Surgical History Status post appendectomy History of right inguinal hernia repair History of tubal ligation (~1973) History of hernia repair (~2011) History of repair of ACL (~1999) Skin cancer, basal cell (~2016) Melanoma in situ (~2007) Family History Father No problems noted. Mother Hypertension Heart disease Sepsis Stroke Sister Hypertension Grandmother Stroke Grandmother Cancer Family/Other Myocardial infarction Social History marital status: number of children: 2 household members: spouse housing: house education level: college occupational status: other Smoking Status: Never smoker alcohol intake: current substance use type: does not use Meds Home Medications and Allergies Home Medications Medication Instructions Recorded Confirmed Type cholecalciferol (vitamin D3) 50 2,000 unit PO DAILY 09/11/18 11/11/23 History mcg (2,000 unit) capsule (Vitamin D3) folic acid 1 mg tablet 1 mg PO DAILY 09/11/18 11/11/23 History calcium carbonate 600 mg PO DAILY #0 tabs 07/22/19 11/11/23 History methotrexate sodium 2.5 mg tablet 7.5 mg PO QWEEK 08/06/21 11/11/23 History estradiol 0.01% (0.1 mg/gram) 0.5 g vaginal QWEEK PRN pessery 10/09/22 11/11/23 Rx vaginal cream #42.5 grams multivit with min-folic 1 tab PO DAILY 10/09/22 11/11/23 History acid-lutein 400 mcg-250 mcg chewable tablet (Centrum Silver) oxyquinoline 0.025 %-sodium lauryl 1 ea vaginal .prn #113.4 grams 01/07/23 11/11/23 Rx sulfate 0.01 % vaginal gel doxepin 10 mg/mL oral concentrate 5 mg (0.5 mL) PO DAILY PRN 06/23/23 11/11/23 Rx insomnia #118 mL metoprolol tartrate 25 mg tablet See Rx Instructions .Route 06/30/23 11/11/23 Rx .COMPLEX #180 tabs rosuvastatin 20 mg tablet See Rx Instructions .Route 10/30/23 11/11/23 Rx .COMPLEX #45 tabs Allergies Allergy/AdvReac Type Severity Reaction Status Date / Time chlorhexidine Allergy Mild rash Verified 11/11/23 13:04 morphine AdvReac Mild ITCHING Verified 11/11/23 13:04 povidone-iodine AdvReac Mild Redness Verified 11/11/23 13:04 [From BETADINE] soap [From BETADINE] AdvReac Mild Redness Verified 11/11/23 13:04 Exam Narrative Exam Narrative: General adult woman alert oriented no acute distress Chest nonlabored respiration Extremities warm well perfused Assessment & Plan Assessment & Plan narrative: 82-year-old woman with recent GI bleed here for diagnostic colonoscopy. Technical details were discussed. Risks, benefits, alternatives explained. Risks including but not limited to myocardial infarction, aspiration, bleeding, pain, missed lesion, incomplete examination, need for further radiographic studies, intestinal injury, and need for major abdominal surgery were discussed. All questions were answered to their satisfaction, and they are in agreement with this plan. Time-Based Coding :: [TOTAL MINUTES] spent with patient and on the chart (including review of chart, obtaining history, exam, reviewing outside data, placing orders, documenting exam and treatment plan, and counseling patient) on [DATE].
[2023-11-11 13:41] VITALS: BP 88/58; PULSE 75; RESP 21; TEMP 36.2; O2SAT 95
--- NOTE | 2023-11-11 13:45 | P.OP.COLON_ITS ---
Operative Date/Time/Diagnoses Date of procedure: 11/11/23 Time of procedure: 13:46 Pre-op diagnosis: Rectal bleeding Post-op diagnosis: other (Colonic polyp x1) Procedure & Clinicians Study performed: Diagnostic colonoscopy and polypectomy Same procedure as scheduled: Yes Indications: GI bleed Surgeon: Florencio Courtney Procedure Notes Procedure in detail: The history and physical was performed/updated and the patient is ASA class is 2. The procedure was discussed in detail with the patient. Potential risks complications including infection, bleeding, missed diagnosis, perforation, need for surgery, and were explained. Their questions were answered and informed consent was obtained. Patient was brought to the procedure room and placed standard monitoring equipment. The patient's vital signs were monitored continuously throughout the entire procedure. Prior to starting time-out was performed. The patient was placed in the left lateral recumbent position. Procedural sedation was administered by anesthesia. Examination began with a thorough inspection of the perianal area there was no evidence of fissures, fistulae, external hemorrhoids or cutaneous malignancy. The colonoscopy scope was then placed into the anal ca nal and was advanced to the cecum, which was identified by the ileocecal valve, the appendiceal orifice and the confluence of the taenia. The scope was then slowly withdrawn examining colon thoroughly in all directions, irrigating it of any residual stool. The scope was retroflexed within the rectum The patient tolerated the procedure well. They will be discharged once criteria are met. The prep was of good/excellent quality. The withdrawl time was 7 minutes. FINDINGS * Sigmoid 1.5 cm pedunculated polyp removed in entirety with hot snare. Site of the lesion tattooed with ink * Diverticulosis of descending colon. Specimen(s): other (Sigmoid polyp) Impression: Colonic polyp x1 Post-procedure Plan for aftercare: Follow-up is dependent on pathology findings. Disposition: same day surgery
[2023-11-11 13:46] VITALS: BP 86/57; PULSE 74; RESP 23; O2SAT 95
[2023-11-11 13:51] VITALS: BP 81/55; PULSE 74; RESP 23; O2SAT 96
[2023-11-11 13:56] VITALS: BP 92/64; PULSE 67; RESP 22; O2SAT 96
[2023-11-11 14:05] VITALS: BP 95/62; PULSE 65; RESP 21; TEMP 36.5; O2SAT 96
== END 2023-11-11 14:27 | disposition home or self-care (01) ==
PROVIDERS: Family Provider Family Medicine; PCP Family Medicine; Referring Provider Surgery; Visit Provider Surgery
PROC: 0DJD8ZZ Inspection of Lower Intestinal Tract, Via Natural or Artificial Opening Endoscopic (ICD-10-PCS; CPT 45378; principal; 2023-11-11 13:30)
DX: K62.5 Hemorrhage of anus and rectum (principal); K57.30 Diverticulosis of large intestine without perforation or abscess without bleeding; D12.5 Benign neoplasm of sigmoid colon
CPT/HCPCS: 45381; 45385; J2704

== ENCOUNTER → 2023-12-04 13:37 | Outpatient (CLI) | payer MEDICARE, OTHER, SELFPAY ==
[2020-12-02 13:17] VITALS: BMI 53.8
[2023-12-04 14:52] LABS: Add Manual Diff / Slide Review NO; Basophils Absolute Auto 100 /uL (0-100); Eosinophils Absolute Auto 200 /uL (0-450); Eosinophils Percent Auto 3.9 % (2-4); Hematocrit 40.6 % (36-46); Lymphocytes Absolute Auto 1300 /uL (1100-4500); Lymphocytes Percent Auto 24.5 % (25-40); Mean Corpuscular HGB Conc 34.4 % (30-36); Mean Corpuscular Hemoglobin 32.6 PG (26-34); Mean Corpuscular Volume 94.6 fL (80-100); Monocytes Absolute Auto 400 /uL (0-900); Monocytes Percent Auto 6.8 % (3-14); Neutrophils Absolute Auto 3500 /uL (1500-7000); Neutrophils Percent Auto 63.8 % (50-75); Platelet Count 275 X10^3/uL (150-400); Red Blood Cell Count 4.29 X10^6/uL (4.0-5.2); Red Cell Distribution Width 13.1 % (11.6-14.8); White Blood Cell Count 5.5 X10^3/uL (4.5-11.0)
[2023-12-04 15:10] LABS: Alanine Aminotransferase 27 IU/L (<35); Albumin 4.1 g/dL (3.5-5.0); Albumin Globulin Ratio 1.5 (1.0-2.8); Alkaline Phosphatase 47 U/L (38-126); Aspartate Aminotransferase 35 IU/L (14-36); BUN Creatinine Ratio 28.4 (6-22); Bilirubin Total 0.6 mg/dL (0.2-1.3); Blood Urea Nitrogen 23 mg/dL (7-17); Calcium 9.1 mg/dL (8.4-10.2); Carbon Dioxide 28 mmol/L (22-32); Chloride 106 mmol/L (98-107); Cholesterol 151 mg/dL (140-199); Estimated Glomerular Filt Rate > 60 mL/min (>60); Globulin 2.7 g/dL (1.7-4.1); Glucose 79 mg/dL (80-110); HDL Cholesterol 97 mg/dL (40-60); HEMOLYSIS 19 (0-50); LDL Cholesterol Calculated 32 mg/dL (<100); Potassium 4.4 mmol/L (3.4-5.1); Sodium 139 mmol/L (137-145); Total Protein 6.8 g/dL (6.3-8.2); Triglycerides 108 mg/dL (35-150)
[2023-12-04 15:41] LABS: TSH w/ Reflex to FT4 1.87 uIU/mL (0.47-4.68)
[2023-12-04 15:57] LABS: Creatinine Urine Random 156.33 mg/dL
[2023-12-04 16:02] LABS: Microalbumin Urine Random 1.5 mg/dL (0-1.6)
[2023-12-05 04:12] LABS: Apolipoprotein B 54 mg/dL (<90)
== END ==
PROVIDERS: Family Provider Family Medicine; PCP Family Medicine; Referring Provider Internal Medicine Rheumatology; Visit Provider Internal Medicine Rheumatology
DX: Z00.00 Encounter for general adult medical examination without abnormal findings (principal); M05.79 Rheumatoid arthritis with rheumatoid factor of multiple sites without organ or systems involvement; Z79.899 Other long term (current) drug therapy; E78.5 Hyperlipidemia, unspecified; I10 Essential (primary) hypertension; M06.9 Rheumatoid arthritis, unspecified
CPT/HCPCS: 36415; 80053; 80061; 82043; 82172; 82570; 84443; 85025

== ENCOUNTER → 2024-03-11 15:42 | Outpatient (CLI) | payer MEDICARE, OTHER, SELFPAY ==
[2020-12-02 13:17] VITALS: BMI 53.8
[2024-03-11 18:05] LABS: Add Manual Diff / Slide Review NO; Basophils Absolute Auto 0 /uL (0-100); Basophils Percent Auto 0.6 % (0-2); Eosinophils Absolute Auto 100 /uL (0-450); Eosinophils Percent Auto 2.7 % (2-4); Hematocrit 41.1 % (36-46); Lymphocytes Absolute Auto 1600 /uL (1100-4500); Lymphocytes Percent Auto 30.1 % (25-40); Mean Corpuscular HGB Conc 33.9 % (30-36); Mean Corpuscular Hemoglobin 32.2 PG (26-34); Monocytes Absolute Auto 400 /uL (0-900); Monocytes Percent Auto 7.5 % (3-14); Neutrophils Absolute Auto 3200 /uL (1500-7000); Neutrophils Percent Auto 59.1 % (50-75); Platelet Count 245 X10^3/uL (150-400); Red Blood Cell Count 4.33 X10^6/uL (4.0-5.2); Red Cell Distribution Width 13.1 % (11.6-14.8); White Blood Cell Count 5.5 X10^3/uL (4.5-11.0)
[2024-03-11 18:13] LABS: Alanine Aminotransferase 31 IU/L (<35); Albumin 4.1 g/dL (3.5-5.0); Albumin Globulin Ratio 1.6 (1.0-2.8); Alkaline Phosphatase 51 U/L (38-126); Aspartate Aminotransferase 40 IU/L (14-36); BUN Creatinine Ratio 24.1 (6-22); Bilirubin Total 0.5 mg/dL (0.2-1.3); Blood Urea Nitrogen 20 mg/dL (7-17); Calcium 9.3 mg/dL (8.4-10.2); Carbon Dioxide 28 mmol/L (22-32); Chloride 103 mmol/L (98-107); Estimated Glomerular Filt Rate > 60 mL/min (>60); Globulin 2.5 g/dL (1.7-4.1); Glucose 81 mg/dL (80-110); HEMOLYSIS < 15 (0-50); Potassium 4.2 mmol/L (3.4-5.1); Sodium 136 mmol/L (137-145); Total Protein 6.6 g/dL (6.3-8.2)
== END ==
PROVIDERS: Family Provider Family Medicine; PCP Family Medicine; Referring Provider Internal Medicine Rheumatology; Visit Provider Internal Medicine Rheumatology
DX: M05.79 Rheumatoid arthritis with rheumatoid factor of multiple sites without organ or systems involvement (principal); Z79.899 Other long term (current) drug therapy
CPT/HCPCS: 36415; 80053; 85025

== ENCOUNTER → 2024-09-09 14:47 | Outpatient (CLI) | payer MEDICARE, OTHER, SELFPAY ==
[2020-12-02 13:17] VITALS: BMI 53.8
[2024-09-09 15:35] LABS: Add Manual Diff / Slide Review NO; Basophils Absolute Auto 0 /uL (0-100); Basophils Percent Auto 0.8 % (0-2); Eosinophils Absolute Auto 200 /uL (0-450); Eosinophils Percent Auto 3.3 % (2-4); Hematocrit 40.2 % (36-46); Hemoglobin 13.8 g/dL (12.0-16.0); Lymphocytes Absolute Auto 1300 /uL (1100-4500); Lymphocytes Percent Auto 22.6 % (25-40); Mean Corpuscular HGB Conc 34.3 % (30-36); Mean Corpuscular Hemoglobin 33.1 PG (26-34); Mean Corpuscular Volume 96.4 fL (80-100); Monocytes Absolute Auto 400 /uL (0-900); Monocytes Percent Auto 7.6 % (3-14); Neutrophils Absolute Auto 3800 /uL (1500-7000); Neutrophils Percent Auto 65.7 % (50-75); Platelet Count 251 X10^3/uL (150-400); Red Blood Cell Count 4.17 X10^6/uL (4.0-5.2); Red Cell Distribution Width 13.4 % (11.6-14.8); White Blood Cell Count 5.8 X10^3/uL (4.5-11.0)
[2024-09-09 15:59] LABS: Alanine Aminotransferase 41 IU/L (<35); Albumin 4.2 g/dL (3.5-5.0); Albumin Globulin Ratio 2.1 (1.0-2.8); Alkaline Phosphatase 53 U/L (38-126); Aspartate Aminotransferase 45 IU/L (14-36); BUN Creatinine Ratio 26.7 (6-22); Bilirubin Total 0.3 mg/dL (0.2-1.3); Blood Urea Nitrogen 20 mg/dL (7-17); Calcium 9.2 mg/dL (8.4-10.2); Carbon Dioxide 29 mmol/L (22-32); Chloride 105 mmol/L (98-107); Estimated Glomerular Filt Rate > 60 mL/min (>60); Glucose 94 mg/dL (70-99); HEMOLYSIS < 15 (0-50); Potassium 4.2 mmol/L (3.4-5.1); Sodium 141 mmol/L (137-145); Total Protein 6.2 g/dL (6.3-8.2)
== END ==
PROVIDERS: Family Provider Family Medicine; PCP Family Medicine; Referring Provider Family Medicine; Visit Provider Internal Medicine Rheumatology
DX: M05.79 Rheumatoid arthritis with rheumatoid factor of multiple sites without organ or systems involvement (principal); Z79.899 Other long term (current) drug therapy
CPT/HCPCS: 36415; 80053; 85025

== ENCOUNTER → 2024-10-22 09:43 | Outpatient (CLI) | payer MEDICARE, OTHER, SELFPAY ==
[2020-12-02 13:17] VITALS: BMI 53.8
[2024-10-22 10:14] LABS: Add Manual Diff / Slide Review NO; Hematocrit 43.7 % (36-46); Hemoglobin 15.0 g/dL (12.0-16.0); Lymphocytes Absolute Auto 1500 /uL (1100-4500); Mean Corpuscular HGB Conc 34.4 % (30-36); Mean Corpuscular Hemoglobin 32.9 PG (26-34); Mean Corpuscular Volume 95.8 fL (80-100); Platelet Count 232 X10^3/uL (150-400)
[2024-10-22 10:42] LABS: Alanine Aminotransferase 39 IU/L (<35); Albumin 4.7 g/dL (3.5-5.0); Albumin Globulin Ratio 2.0 (1.0-2.8); Alkaline Phosphatase 46 U/L (38-126); Blood Urea Nitrogen 20 mg/dL (7-17); Calcium 9.7 mg/dL (8.4-10.2); Carbon Dioxide 27 mmol/L (22-32); Chloride 104 mmol/L (98-107); Estimated Glomerular Filt Rate > 60 mL/min (>60); Globulin 2.4 g/dL (1.7-4.1); Glucose 85 mg/dL (70-99); HEMOLYSIS 20 (0-50); Potassium 4.2 mmol/L (3.4-5.1); Sodium 138 mmol/L (137-145); Total Protein 7.1 g/dL (6.3-8.2)
[2024-10-22 11:13] LABS: Hepatitis B Surface Antigen NEGATIVE s/c (NEGATIVE); TSH w/ Reflex to FT4 3.20 uIU/mL (0.47-4.68)
[2024-10-22 11:33] LABS: Hep C Virus Ab w/Reflex Quant NEGATIVE s/c (NEGATIVE)
[2024-10-25 07:39] LABS: Hepatitis B Surf Ab Qualitativ Non Reactive (.)
== END ==
PROVIDERS: Family Provider Family Medicine; PCP Family Medicine; Referring Provider Internal Medicine Rheumatology; Visit Provider Internal Medicine Rheumatology
DX: M05.79 Rheumatoid arthritis with rheumatoid factor of multiple sites without organ or systems involvement (principal); E78.2 Mixed hyperlipidemia; R74.8 Abnormal levels of other serum enzymes; Z79.899 Other long term (current) drug therapy
CPT/HCPCS: 36415; 80053; 84443; 85025; 86015; 86038; 86706; 86803; 87340

== ENCOUNTER 2024-11-08 09:40 | Emergency (ER) | payer MEDICARE, OTHER, SELFPAY ==
[2020-12-02 13:17] VITALS: BMI 53.8
[2024-11-08 09:54] VITALS: BP 157/74; PULSE 68; RESP 17; TEMP 36.9; O2SAT 98; BMI 19.3
[2024-11-08 10:15] VITALS: PULSE 62; O2SAT 91
--- NOTE | 2024-11-08 10:21 | ED_ITS ---
HPI - Abdominal Pain General Chief Complaint: Abdominal Pain Stated Complaint: abd pain, temp, and blood in stool Time Seen by Provider: 11/08/24 09:55 Source: patient Mode of arrival: Ambulatory History of Present Illness HPI narrative: 83-year-old history of rheumatoid arthritis, dyslipidemia, TIA, hypertension, presents with on abdominal pain in watery loose stool and blood clot came in to be evaluated. She had a colonoscopy over 2 years ago that was normal. Patient denies fever, chills, body aches, urinary complaints, chest pain, shortness breath, cough, nausea, vomiting, constipation or diarrhea. Other than what is stated 14 point review of system is negative. Related Data Home Medications ?Medication ?Instructions ?Recorded ?Confirmed cholecalciferol (vitamin D3) 50 2,000 unit PO DAILY 09/21/24 mcg (2,000 unit) capsule (Vitamin D3) folic acid 1 mg tablet 1 mg PO DAILY 09/11/1809/21 calcium carbonate 600 mg PO DAILY #0 tabs 06/3009/21/24 methotrexate sodium 2.5 mg tablet 7.5 mg PO QWEEK 12/2009/21/24 xtrmiffpqbyp-kizcyoj-ftcpb acid 1 tab PO DAILY 3 09/21/24 400 mcg-lutein 250 mcg chewable tablet (Centrum Silver) Previous Rx's ?Medication ?Instructions ?Recorded estradiol 0.01% (0.1 mg/gram) 0.5 g vaginal QWEEK PRN pessery 10/09/22 vaginal cream #42.5 grams rosuvastatin 20 mg tablet See Rx Instructions .Route 0 04/16/24 .COMPLEX #45 tabs oxyquinoline 0.025 %-sodium lauryl 1 ea vaginal .prn # 113.4 grams 04/19/24 sulfate 0.01 % vaginal gel metoprolol tartrate 25 mg tablet See Rx Instructions . Route 07/08/24 .COMPLEX #180 tabs doxepin 10 mg/mL oral concentrate See Rx Instructions .Route 08/13/24 .COMPLEX #120 mL memantine 5 mg tablet 5 mg PO BID #180 tabs ciprofloxacin HCl 500 mg tablet 500 mg PO BID #14 tabs 11/08/24 metronidazole 500 mg tablet 500 mg PO Q8H #21 tabs 02/22 pantoprazole 40 mg granules 40 mg PO DAILY #30 ea 10/29 04/24 delayed-release for susp in packet (Protonix) Allergies Allergy/AdvReac Type Severity Reaction Status Date / Time chlorhexidine Allergy Mild rash Verified 09/21/24 07:50 morphine AdvReac Mild ITCHING Verified 09/21/24 07:50 povidone-iodine (From AdvReac Mild Redness Verified 09/21/24 07:50 BETADINE) soap (From BETADINE) AdvReac Mild Redness Verified 09/21/24 07:50 Review of Systems Review of Systems ROS Unobtainable: All systems reviewed & are unremarkable except as noted in HPI and below Patient History Medical History (Updated 11/08/24 @ 12:01 by El Dela Cruz DO) Mild cognitive impairment Short-term memory loss Osteoarthritis of glenohumeral joint HLD (hyperlipidemia) HTN (hypertension) TIA (transient ischemic attack) (~2018) Vision disorder Hearing loss Actinic keratosis Rheumatoid arthritis (~2016) Fever (~2001) Seasonal allergies (~1949) Herniated disc (~2007) Shoulder pain Osteopenia Gout (~2016) Mumps Measles Chicken pox Tinnitus (~1949) Presence of pessary (~2002) Surgical History Status post appendectomy History of right inguinal hernia repair History of tubal ligation (~1973) History of hernia repair (~2011) History of repair of ACL (~1999) Skin cancer, basal cell (~2016) Melanoma in situ (~2007) Family History Father No problems noted. Mother Hypertension Heart disease Sepsis Stroke Sister Hypertension Grandmother Stroke Grandmother Cancer Family/Other Myocardial infarction Social History marital status: number of children: 2 household members: spouse housing: house education level: college occupational status: other Smoking Status: Never smoker alcohol intake: current substance use type: does not use Smoking Status: Never smoker alcohol intake frequency: a few times a month Exam Narrative Exam Narrative: GENERAL: [83] year old patient appears stated age. Well-developed patient, in mild distress. HEAD: Atraumatic. Normocephalic. EYES: Pupils equal round and reactive. Extraocular motions intact. No scleral icterus. No injection or drainage. ENT: Nose without bleeding, purulent drainage. Throat without erythema, tonsillar hypertrophy or exudate. Airway patent. NECK: Trachea midline. Non tender CARDIOVASCULAR: Regular rate and rhythm without murmurs, gallops, or rubs. RESPIRATORY: Clear to auscultation. Breath sounds equal bilaterally. No wheezes, rales, or rhonchi. GASTROINTESTINAL: Abdomen soft, non-tender, nondistended. Rectal: Guaiac negative, no hemorrhoids or fissure EXTREMITIES: No edema or joint tenderness. BACK: Nontender without deformity or crepitance. No flank tenderness. NEURO: AOx3. SKIN: No rash or erythema of visible areas Initial Vital Signs Initial Vital Signs: Vital Signs Temperature 98.4 F 11/08/24 09:54 Pulse Rate 68 11/08/24 09:54 Respiratory Rate 17 11/08/24 09:54 Blood Pressure 157/74 H 11/08/24 09:54 Pulse Oximetry 98 11/08/24 09:54 Oxygen Delivery Method Room Air 11/08/24 09:54 Course Orders Ordered: ED Orders 11/08/24 10:01 EKG-12 Lead Stat 11/08/24 10:14 Complete Blood Count AUTO DIFF Stat Comprehensive Metabolic Panel Stat Lipase Stat Prothrombin Time INR Stat 11/08/24 10:29 Complete Blood Count AUTO DIFF Stat Comprehensive Metabolic Panel Stat Lipase Stat EKG-12 Lead Stat 11/08/24 10:30 CT angio Abd/Pel GI Bleed Stat Ondansetron HCl (Ondansetron 4 Mg/2 Ml Inj) 4 mg IV NOW PRN PRN Reason: Nausea And Vomiting Ondansetron HCl (Ondansetron 4 Mg Odt) 4 mg PO NOW PRN PRN Reason: Nausea And Vomiting Ondansetron HCl (Ondansetron 4 Mg/2 Ml Inj) 4 mg IV NOW PRN PRN Reason: Nausea And Vomiting Ondansetron HCl (Ondansetron 4 Mg Odt) 4 mg PO NOW PRN PRN Reason: Nausea And Vomiting Discontinued Medications Lactated Ringer's (Lactated Ringers) 1,000 mls @ 1,000 mls/hr IV BOLUS ONE Stop: 11/08/24 11:29 Last Admin: 11/08/24 10:36 Dose: 1,000 mls/hr Documented By: ZAMZAM Vital Signs Vital signs: Vital Signs - 8 hr 11/08/24 09:54 Temperature 98.4 F Pulse Rate 68 Respiratory Rate 17 Blood Pressure 157/74 H Pulse Oximetry 98 Oxygen Delivery Method Room Air MDM - Abdominal Pain Lab Data 11/08/24 10:14 11/08/24 10:14 Labs: Lab Results 11/08/24 Range/Units 10:14 WBC 11.3 H (4.5-11.0) X10^3/uL RBC 4.42 (4.0-5.2) X10^6/uL Hgb 14.7 (12.0-16.0) g/dL Hct 42.4 (36-46) % MCV 95.9 (80-100) fL MCH 33.2 (26-34) PG MCHC 34.6 (30-36) % RDW 13.2 (11.6-14.8) % Plt Count 205 (150-400) X10^3/uL Neut % (Auto) 82.7 H (50-75) % Lymph % (Auto) 7.2 L (25-40) % Anderson % (Auto) 9.0 (3-14) % Eos % (Auto) 0.6 L (2-4) % Baso % (Auto) 0.5 (0-2) % Neut # (Auto) 9300 H (4663-8043) /uL Lymph # (Auto) 800 L (5976-8833) /uL Anderson # (Auto) 1000 H (0-900) /uL Eos # (Auto) 100 (0-450) /uL Baso # (Auto) 100 (0-100) /uL PT 13.9 H (9.4-12.5) SECONDS INR 1.2 (0.9-1.3) Sodium 138 (137-145) mmol/L Potassium 4.1 (3.4-5.1) mmol/L Chloride 105 (98-107) mmol/L Carbon Dioxide 27 (22-32) mmol/L BUN 22 H (7-17) mg/dL Creatinine 0.76 (0.52-1.04) mg/dL Estimated GFR > 60 (>60) mL/min BUN/Creatinine Ratio 28.9 H (6-22) Glucose 100 H (70-99) mg/dL Calcium 9.1 (8.4-10.2) mg/dL Total Bilirubin 0.9 (0.2-1.3) mg/dL AST 37 H (14-36) IU/L ALT 27 (<35) IU/L Alkaline Phosphatase 52 (38-126) U/L Total Protein 7.3 (6.3-8.2) g/dL Albumin 4.5 (3.5-5.0) g/dL Globulin 2.8 (1.7-4.1) g/dL Albumin/Globulin Ratio 1.6 (1.0-2.8) Lipase 47 (23-300) U/L Imaging Data CT scan - abdomen/pelvis: Radiologist's Impression: [address] [address] [address] Scan Report Signed Patient: Lexus Moya MR#: [id number] : 1940 Acct:[id number] Age/Sex: 83 / F Date of Service: 11/08/24 Loc: ED Accession Number: [id number] Procedure: CT angio Abd/Pel GI Bleed Ordering Provider: El Dela Cruz D.O. PROCEDURE: CT ANGIO ABD/PEL GI BLEED INDICATIONS: GI bleed abd pain TECHNIQUE: After the administration of intravenous contrast, 2.5 mm sections acquired from the diaphragm to the iliac crests. 10 mm maximum intensity projection (MIP) coronal and sagittal reformats were then performed. For radiation dose reduction, the following was used: automated exposure control. COMPARISON: [facility], CT, CT ABDOMEN PELVIS W CON, 12/01/2020, 23:48. FINDINGS: Image quality: Diagnostic. Abdominal aorta: No aortic aneurysm or evidence of acute aortic syndrome. Mesenteric arteries: Patent without hemodynamically significant stenosis. Renal arteries: Patent without hemodynamically significant stenosis. Lower chest: Unremarkable. ABDOMEN: Liver: No solid mass. Gallbladder: Absent. Biliary ducts: No biliary dilation. Pancreas: No ductal dilation. Spleen: Size is within normal limits. Adrenal Glands: No adrenal nodules. Kidneys and Ureters: No hydronephrosis. No solid mass. No complex renal cystic lesion which requires follow up. Stomach and Bowel: Distal gastric antral wall thickening suggesting antral gastritis. Sigmoid diverticulitis. Findings include diffuse thickening of the wall of the sigmoid as well as inflammatory change in the adjacent fat. Cannot exclude underlying lesion. Peritoneum: No abnormal intraperitoneal fluid. No free air. Ventral Wall: No hernia. Abdominal Nodes: No retroperitoneal or mesenteric adenopathy by size criteria. Vessels: Aorta, as above. Normal IVC. Incidental note is made of a dilated refluxing left gonadal vein giving rise to left pelvic varicosities, typically asymptomatic in this age group. PELVIS: Pelvic Organs: Uterus is surgically absent. No adnexal masses. Pessary.. Bladder: Unremarkable. Pelvic Nodes: No enlarged lymph nodes. Miscellaneous: No inguinal hernias are seen. Bones: No aggressive osseous abnormality. IMPRESSION: 1. No acute GI bleed identified during the study. 2. Diverticulitis. 3. Probable antral gastritis. 4. Remote hysterectomy and cholecystectomy. Comment: If the patient has not had recent colonoscopy, recommend direct visualization after acute symptoms resolve to exclude underlying lesion. [facility] Narrative Medical decision making narrative: All lab work, vital signs, nurse triage note, medication list, previous ER visits, and all imaging studies reviewed. CT abdomen and pelvis showed no acute GI bleed radiculitis probable antral against stridor remote history of hysterectomy cholecystectomy. White count of 11.3 BUN 22 creatinine 0.76 AST 37 lipase normal. Differential diagnosis GI bleed upper versus lower, pancreatitis, diverticulitis, kidney stone, kidney infection, UTI. Patient given Cipro Flagyl Protonix here and will be discharged on same medicines clear liquid diet advance as tolerated. Discharge Plan Departure Patient Disposition: Home Clinical Impression: Acute diverticulitis Gastritis Qualifiers: Gastritis type: superficial Chronicity: acute Gastritis bleeding: without bleeding Qualified Code(s): K29.00 - Acute gastritis without bleeding Instructions: DI for Diverticulitis Activity Restrictions/Additional Instructions: Return with new or worsening symptoms. Clear liquid diet advance as tolerated. Take your medicines as directed. Follow up with PCP 1-2 weeks if no improvement in symptoms. Prescriptions: New ciprofloxacin HCl 500 mg tablet 500 mg PO BID Qty: 14 0RF metronidazole 500 mg tablet 500 mg PO Q8H Qty: 21 0RF pantoprazole [Protonix] [address] for susp in packet 40 mg PO DAILY Qty: 30 0RF No Action calcium carbonate 600 mg calcium (1,500 mg) tablet 600 mg PO DAILY Qty: 0 methotrexate sodium 2.5 mg tablet 7.5 mg PO QWEEK Rx Instructions: 3 x weekly estradiol 0.01 % (0.1 mg/gram) cream 0.5 g VAG QWEEK PRN (Reason: pessery) Qty: 42.5 6RF Rx Instructions: Insert 0.5g vaginally once weekly rosuvastatin 20 mg tablet See Rx Instructions .ROUTE .COMPLEX Qty: 45 1RF Dose Instruction: take 1/2 tablet by mouth in the evening Rx Instructions: take 1/2 tablet by mouth in the evening oxyquinoline-sod.lauryl sulfat 0.025-0.01 % gel 1 ea vaginal .prn Qty: 113.4 2RF Rx Instructions: Weekly PRN for use with pessary metoprolol tartrate 25 mg tablet See Rx Instructions .ROUTE .COMPLEX Qty: 180 0RF Dose Instruction: TAKE ONE TABLET BY MOUTH TWICE DAILY Rx Instructions: TAKE ONE TABLET BY MOUTH TWICE DAILY doxepin 10 mg/mL concentrate See Rx Instructions .ROUTE .COMPLEX Qty: 120 0RF Dose Instruction: TAKE 0.5ML (5MG) BY MOUTH ONCE DAILY NEEDED FOR INSOMNIA Rx Instructions: TAKE 0.5ML (5MG) BY MOUTH ONCE DAILY NEEDED FOR INSOMNIA memantine 5 mg tablet 5 mg PO BID Qty: 180 0RF Centrum Silver 400-250 mcg tablet,chewable 1 tab PO DAILY folic acid 1 mg Tablet 1 mg PO DAILY cholecalciferol (vitamin D3) [Vitamin D3] 2,000 unit Capsule 2,000 unit PO DAILY Referrals: Wallace Martinez MD [Primary Care Provider, Family Practice] Stand Alone Forms: Patient Portal/API
--- NOTE | 2024-11-08 10:22 | EKG_ITS ---
[place] [id number] [place] [id number] Test Date: 2024-11-08 Pat Name: Lexus Moya Department: [facility] Room: Gender: Female Soda Dialyzer: YAQUELIN : 1940 Requested By: Order Number: [id number] Reading MD: El Potter MD Measurements Intervals [place] Rate: 57 P: 78 VT: 164 QRS: -68 QRSD: 90 T: 76 QT: 444 QTc: 432 Interpretive Statements Sinus bradycardia Left axis deviation Anteroseptal infarct , age undetermined Electronically Signed On 11-08-2024 11:47:34 PDT by El Potter MD
[2024-11-08 10:24] LABS: Add Manual Diff / Slide Review NO; Hematocrit 42.4 % (36-46); Hemoglobin 14.7 g/dL (12.0-16.0); Lymphocytes Absolute Auto 800 /uL (1100-4500); Mean Corpuscular HGB Conc 34.6 % (30-36); Mean Corpuscular Hemoglobin 33.2 PG (26-34); Mean Corpuscular Volume 95.9 fL (80-100); Platelet Count 205 X10^3/uL (150-400)
[2024-11-08 10:28] LABS: INR 1.2 (0.9-1.3); Prothrombin Time 13.9 SECONDS (9.4-12.5)
[2024-11-08 10:30] VITALS: BP 151/61; PULSE 55; O2SAT 99
--- NOTE | 2024-11-08 10:30 | DI.CT.S_ITS ---
PROCEDURE: CT ANGIO ABD/PEL GI BLEED INDICATIONS: GI bleed abd pain TECHNIQUE: After the administration of intravenous contrast, 2.5 mm sections acquired from the diaphragm to the iliac crests. 10 mm maximum intensity projection (MIP) coronal and sagittal reformats were then performed. For radiation dose reduction, the following was used: automated exposure control. COMPARISON: [facility], CT, CT ABDOMEN PELVIS W CON, 12/01/2020, 23:48. FINDINGS: Image quality: Diagnostic. Abdominal aorta: No aortic aneurysm or evidence of acute aortic syndrome. Mesenteric arteries: Patent without hemodynamically significant stenosis. Renal arteries: Patent without hemodynamically significant stenosis. Lower chest: Unremarkable. ABDOMEN: Liver: No solid mass. Gallbladder: Absent. Biliary ducts: No biliary dilation. Pancreas: No ductal dilation. Spleen: Size is within normal limits. Adrenal Glands: No adrenal nodules. Kidneys and Ureters: No hydronephrosis. No solid mass. No complex renal cystic lesion which requires follow up. Stomach and Bowel: Distal gastric antral wall thickening suggesting antral gastritis. Sigmoid diverticulitis. Findings include diffuse thickening of the wall of the sigmoid as well as inflammatory change in the adjacent fat. Cannot exclude underlying lesion. Peritoneum: No abnormal intraperitoneal fluid. No free air. Ventral Wall: No hernia. Abdominal Nodes: No retroperitoneal or mesenteric adenopathy by size criteria. Vessels: Aorta, as above. Normal IVC. Incidental note is made of a dilated refluxing left gonadal vein giving rise to left pelvic varicosities, typically asymptomatic in this age group. PELVIS: Pelvic Organs: Uterus is surgically absent. No adnexal masses. Pessary.. Bladder: Unremarkable. Pelvic Nodes: No enlarged lymph nodes. Miscellaneous: No inguinal hernias are seen. Bones: No aggressive osseous abnormality. IMPRESSION: 1. No acute GI bleed identified during the study. 2. Diverticulitis. 3. Probable antral gastritis. 4. Remote hysterectomy and cholecystectomy. Comment: If the patient has not had recent colonoscopy, recommend direct visualization after acute symptoms resolve to exclude underlying lesion. Dictated by: Mp Rodriguez M.D. on 11/08/2024 at 11:22 Approved by: Mp Rodriguez M.D. on 11/08/2024 at 11:30
[2024-11-08 10:32] LABS: Alanine Aminotransferase 27 IU/L (<35); Albumin 4.5 g/dL (3.5-5.0); Albumin Globulin Ratio 1.6 (1.0-2.8); Alkaline Phosphatase 52 U/L (38-126); Blood Urea Nitrogen 22 mg/dL (7-17); Calcium 9.1 mg/dL (8.4-10.2); Carbon Dioxide 27 mmol/L (22-32); Chloride 105 mmol/L (98-107); Estimated Glomerular Filt Rate > 60 mL/min (>60); Globulin 2.8 g/dL (1.7-4.1); Glucose 100 mg/dL (70-99); HEMOLYSIS 19 (0-50); Lipase 47 U/L (23-300); Potassium 4.1 mmol/L (3.4-5.1); Sodium 138 mmol/L (137-145); Total Protein 7.3 g/dL (6.3-8.2)
[2024-11-08] MEDS: LACTATED RINGERS 1,000 ML 1000 ML IV (10:36)
[2024-11-08 12:00] VITALS: BP 134/64; PULSE 60; O2SAT 99
[2024-11-08] MEDS: PANTOPRAZOLE DR 20 MG TABLET 40 MG PO (12:16)
[2024-11-08] MEDS: CIPROFLOXACIN 250 MG TABLET 500 MG PO (12:17)
== END 2024-11-08 12:28 | disposition home or self-care (01) ==
PROVIDERS: Emergency Provider Family Medicine; Family Provider Family Medicine; PCP Family Medicine
DX: K57.92 Diverticulitis of intestine, part unspecified, without perforation or abscess without bleeding (principal); K29.00 Acute gastritis without bleeding
CPT/HCPCS: 36415; 74174; 80053; 83690; 85025; 85610; 93005; 96360; 96361; 99284; Q9967

== ENCOUNTER 2025-01-02 10:02 | Emergency (ER) | payer MEDICARE, OTHER, SELFPAY ==
[2020-12-02 13:17] VITALS: BMI 53.8
[2025-01-02] VITALS (13 sets, daily range): BP systolic 137–157; BP diastolic 71–81; PULSE 61–134; RESP 16–18; TEMP 36.4–36.7; O2SAT 96–100; BMI 18.9
[2025-01-02 10:41] LABS: Add Manual Diff / Slide Review NO; Hematocrit 40.7 % (36-46); Hemoglobin 14.1 g/dL (12.0-16.0); Lymphocytes Absolute Auto 1800 /uL (1100-4500); Mean Corpuscular HGB Conc 34.5 % (30-36); Mean Corpuscular Hemoglobin 31.9 PG (26-34); Mean Corpuscular Volume 92.4 fL (80-100); Platelet Count 241 X10^3/uL (150-400)
[2025-01-02] MEDS: SODIUM CHLORIDE 0.9% 1,000 ML 1000 ML IV (10:48)
--- NOTE | 2025-01-02 10:48 | DI.CT.S_ITS ---
PROCEDURE: CT HEAD/BRAIN WO CON INDICATIONS: severe ortiz TECHNIQUE: Noncontrast 4.5 mm thick angled axial sections acquired from the foramen magnum to the vertex, with coronal and sagittal reformats. For radiation dose reduction, the following was used: automated exposure control, adjustment of mA and/or kV according to patient size. COMPARISON: [facility], CT, CT HEAD/BRAIN WO CON, 11/10/2024, 20:36. FINDINGS: Image quality: Diagnostic. CSF spaces: Basal cisterns are patent. No extra-axial fluid collections. Ventricles are normal in size and shape. Brain: No midline shift. No intracranial mass effect or hemorrhage. [place]- white matter interface is normal. Diffuse parenchymal volume loss with periventricular white matter hypodensities consistent with chronic microvascular ischemic disease Skull and face: Calvarium and visualized facial bones are intact, without suspicious lesions. Sinuses: Visualized sinuses and mastoids are clear. IMPRESSION: No acute intracranial pathology. Dictated by: Xiang Russo M.D. on 01/02/2025 at 11:20 Approved by: Xiang Russo M.D. on 01/02/2025 at 11:21
--- NOTE | 2025-01-02 10:48 | DI.CT.S_ITS ---
PROCEDURE: CT ANGIO HEAD AND NECK INDICATIONS: severe ortiz TECHNIQUE: After the administration of intravenous contrast, 1 mm thick sections acquired from the aortic arch through the [place]. 3-dimensional kerinvn-avcbilzob-chobdgiapt (MIP) and/or volume rendering reformats were acquired of the central intracranial vasculature and neck separately. For radiation dose reduction, the following was used: automated exposure control, adjustment of mA and/or kV according to patient size. COMPARISON: [facility], CT, CT ANGIO HEAD AND NECK, 11/10/2024, 20:36. FINDINGS: Image quality: Diagnostic. Cerebral CT Angiogram: Internal carotid arteries: No acute findings. Intracranial ICA are patent with no significant stenosis. No occlusion. No aneurysm. Anterior cerebral arteries: Unremarkable. No significant stenosis. No occlusion. No aneurysm. Middle cerebral arteries: Unremarkable. No significant stenosis. No occlusion. No aneurysm. Posterior cerebral arteries: Unremarkable. No significant stenosis. No occlusion. No aneurysm. Basilar artery: Unremarkable. No significant stenosis. No occlusion. No aneurysm. Vertebral arteries: Unremarkable as visualized. Dural venous sinuses: Unremarkable given phase of enhancement. Other: Arterial phase appearance of the brain parenchyma is unremarkable. Neck CT Angiogram: Internal carotid arteries: Unremarkable. No significant stenosis. No dissection or occlusion. Common carotid arteries: Unremarkable. No significant stenosis. No dissection or occlusion. External carotid arteries: Unremarkable. No occlusion. Vertebral arteries: Unremarkable. No significant stenosis. No dissection or occlusion. Aortic Arch and Mediastinum: Partially visualized aortic arch unremarkable without evidence of aneurysm. Origins of the great vessels unremarkable. Other: Arterial phase soft tissues of the neck and chest are unremarkable. IMPRESSION: No significant intracranial arterial abnormality is seen. No significant abnormality is seen within the arteries of the neck. Any quantitative measurements of stenosis were performed using NASCET criteria. Dictated by: Xiang Russo M.D. on 01/02/2025 at 11:21 Approved by: Xiang Russo M.D. on 01/02/2025 at 11:27
[2025-01-02 10:57] LABS: Alanine Aminotransferase 32 IU/L (<35); Albumin 4.5 g/dL (3.5-5.0); Albumin Globulin Ratio 1.7 (1.0-2.8); Alkaline Phosphatase 61 U/L (38-126); Blood Urea Nitrogen 19 mg/dL (7-17); Calcium 9.2 mg/dL (8.4-10.2); Carbon Dioxide 22 mmol/L (22-32); Chloride 105 mmol/L (98-107); Estimated Glomerular Filt Rate > 60 mL/min (>60); Globulin 2.7 g/dL (1.7-4.1); Glucose 96 mg/dL (70-99); HEMOLYSIS < 15 (0-50); Potassium 4.2 mmol/L (3.4-5.1); Sodium 137 mmol/L (137-145); Total Protein 7.2 g/dL (6.3-8.2)
[2025-01-02] MEDS: PROCHLORPERAZINE 10 MG/2 ML VIAL IV (13:09)
[2025-01-02] MEDS: diphenhydrAMINE 50 MG/ML VIAL 25 MG IV (13:09)
--- NOTE | 2025-01-02 13:44 | ED.HA ---
HPI - Headache General Chief Complaint: Headache Stated Complaint: History of TIA/Headache in muslim Time Seen by Provider: 01/02/25 10:12 Mode of arrival: Ambulatory History of Present Illness HPI Narrative: 84-year-old female presents to the emergency department for headache. Patient reports began this morning after having woken up. It is across the top of her head and right muslim. I initially received report that the headache was very severe however patient tells me it is quite mild. No recent trauma to the head. No disturbances in speech or vision. No fever or rash. No n/v. She does have history of rheumatoid arthritis in his prescribed hydroxychloroquine and methotrexate. She follows with rheumatology in [place]. She has never had history of temporal arteritis. Denies eye pain. Related Data Home Medications ?Medication ?Instructions ?Recorded ?Confirmed cholecalciferol (vitamin D3) 50 2,000 unit PO DAILY 09/11/18 11/11/24 mcg (2,000 unit) capsule (Vitamin D3) folic acid 1 mg tablet 1 mg PO DAILY 09/11/18 11/11/24 methotrexate sodium 2.5 mg tablet 7.5 mg PO QWEEK 08/06/21 11/11/24 flaxseed oil 1,000 mg capsule 2,000 mg PO DAILY 11/25/24 cyclosporine 0.05 % eye drops in a drp EYE-BOTH BID 12/06/24 dropperette Previous Rx's ?Medication ?Instructions ?Recorded estradiol 0.01% (0.1 mg/gram) 0.5 g vaginal QWEEK PRN pessery 10/09/22 vaginal cream #42.5 grams oxyquinoline 0.025 %-sodium lauryl 1 ea vaginal .prn #113.4 grams 04/19/24 sulfate 0.01 % vaginal gel memantine 5 mg tablet 5 mg PO BID #180 tabs 10/04/24 Held on 11/22/24. Instructions: Home Medication placed on hold at Doctor's office pantoprazole 40 mg granules 40 mg PO DAILY #30 ea 11/08/24 delayed-release for susp in packet (Protonix) metoprolol tartrate 25 mg tablet See Rx Instructions .Route 11/09/24 Held on 11/22/24. .COMPLEX #180 tabs Instructions: Home Medication placed on hold at Doctor's office rosuvastatin 20 mg tablet See Rx Instructions .Route 11/22/24 .COMPLEX #45 tabs Allergies Allergy/AdvReac Type Severity Reaction Status Date / Time chlorhexidine Allergy Mild rash Verified 11/22/24 15:05 morphine AdvReac Mild ITCHING Verified 11/22/24 15:05 povidone-iodine (From AdvReac Mild Redness Verified 11/22/24 15:05 BETADINE) soap (From BETADINE) AdvReac Mild Redness Verified 11/22/24 15:05 Review of Systems Review of Systems Narrative: Pertinent ROS obtained and negative except as stated in HPI Patient History Medical History (Updated 01/02/25 @ 13:48 by Caridad Arias MD) Mild cognitive impairment Short-term memory loss Osteoarthritis of glenohumeral joint HLD (hyperlipidemia) HTN (hypertension) TIA (transient ischemic attack) (~2018) Vision disorder Hearing loss Actinic keratosis Rheumatoid arthritis (~2016) Fever (~2001) Seasonal allergies (~1949) Herniated disc (~2007) Shoulder pain Osteopenia Gout (~2016) Mumps Measles Chicken pox Tinnitus (~1949) Presence of pessary (~2002) Surgical History Status post appendectomy History of right inguinal hernia repair History of tubal ligation (~1973) History of hernia repair (~2011) History of repair of ACL (~1999) Skin cancer, basal cell (~2016) Melanoma in situ (~2007) Family History Father No problems noted. Mother Hypertension Heart disease Sepsis Stroke Sister Hypertension Grandmother Stroke Grandmother Cancer Family/Other Myocardial infarction Social History (Updated 11/22/24 @ 15:02 by Nhi Lentz MA) marital status: number of children: 2 household members: spouse lives independently: Yes caregiver/support person: Yes (Xiang Moya my ) housing: house pets and animals: Yes (2 Dogs) education level: college occupational status: other special robin needs: No travel history: recent other: gardening seatbelt use: always helmet use: No water heater temp set < 120 deg: Yes working smoke detector in home: Yes fire extinguisher in home: Yes carbon monox detector in home: Yes firearms in home: No do you feel safe at home: Yes Smoking Status: Never smoker second hand exposure: No alcohol intake: current substance use type: does not use during the past year weight has: remained stable well-balanced diet: daily or most days daily servings fruits/ve or more times/day caffeine: Yes eating out: rarely or never Type(s) of exercise: walking, occasional exercise and normal ROM and activity Smoking Status: Never smoker alcohol intake frequency: a few times a month Alcohol type: wine Exam Initial Vital Signs Initial Vital Signs: Vital Signs Pulse Rate 134 H 01/02/25 10:10 Pulse Oximetry 96 01/02/25 10:10 Constitutional: Well appearing, no acute distress Head: NCAT, no nuchal rigidity, no tenderness over the temples Cardiovascular: RRR, no murmur or rub Pulmonary: CTA bilaterally, no respiratory distress Abdominal: soft, non-tender Extremities: No LE edema Skin: warm and dry, no diaphoresis Neurological: Alert and oriented x3, extraocular movements intact, [place], visual fowler intact, face symmetric Course Orders Ordered: Discontinued Medications Diphenhydramine HCl (Diphenhydramine 50 Mg/Ml Vial) 25 mg IV NOW ONE Stop: 01/02/25 10:36 Last Admin: 01/02/25 13:06 Dose: Not Given Documented By: Diphenhydramine HCl (Diphenhydramine 50 Mg/Ml Vial) 25 mg IV NOW ONE Stop: 01/02/25 13:01 Last Admin: 01/02/25 13:09 Dose: 25 mg Documented By: ROGER Sodium Chloride (Normal Saline 0.9%) 1,000 mls @ 1,000 mls/hr IV BOLUS ONE Stop: 01/02/25 11:34 Last Infusion: 01/02/25 12:11 Dose: Infused Documented By: Admin: 01/02/25 10:48 Dose: 1,000 mls/hr Documented By: TC Prochlorperazine (Prochlorperazine 10 Mg/2 Ml Vial) 10 mg IV NOW ONE Stop: 01/02/25 13:01 Last Admin: 01/02/25 13:09 Dose: 10 mg Documented By: TC Vital Signs Vital signs: Vital Signs - 8 hr 01/02/25 10:10 01/02/25 10:11 01/02/25 10:11 Temperature Pulse Rate 134 H 68 Respiratory Rate Blood Pressure 157/78 H Pulse Oximetry 96 100 Oxygen Delivery Method 01/02/25 10:13 01/02/25 10:30 01/02/25 10:30 Temperature 97.6 F Pulse Rate 73 71 Respiratory Rate 18 Blood Pressure 157/78 H 137/71 Pulse Oximetry 99 99 Oxygen Delivery Method Room Air 01/02/25 11:13 01/02/25 11:27 01/02/25 11:27 Temperature Pulse Rate 67 Respiratory Rate Blood Pressure 155/81 H Pulse Oximetry 97 97 Oxygen Delivery Method Room Air Room Air 01/02/25 11:30 01/02/25 11:31 01/02/25 11:31 Temperature Pulse Rate 65 Respiratory Rate Blood Pressure 140/81 Pulse Oximetry 96 100 Oxygen Delivery Method Room Air Room Air 01/02/25 12:00 01/02/25 12:00 Temperature Pulse Rate 63 Respiratory Rate Blood Pressure 141/78 H Pulse Oximetry 100 Oxygen Delivery Method Room Air MDM - Headache Lab Data 01/02/25 10:27 01/02/25 10:27 Labs: Lab Results 01/02/25 Range/Units 10: WBC 4.7 (4.5-11.0) X10^3/uL RBC 4.41 (4.0-5.2) X10^6/uL Hgb 14.1 (12.0-16.0) g/dL Hct 40.7 (36-46) % MCV 92.4 (80-100) fL MCH 31.9 (26-34) PG MCHC 34.5 (30-36) % RDW 13.5 (11.6-14.8) % Plt Count 241 (150-400) X10^3/uL Neut % (Auto) 52.6 (50-75) % Lymph % (Auto) 36.9 (25-40) % Cobb % (Auto) 7.7 (3-14) % Eos % (Auto) 1.7 L (2-4) % Baso % (Auto) 1.1 (0-2) % Neut # (Auto) 2500 (2537-7767) /uL Lymph # (Auto) 1800 (9114-1399) /uL Cobb # (Auto) 400 (0-900) /uL Eos # (Auto) 100 (0-450) /uL Baso # (Auto) 100 (0-100) /uL ESR 7 (0-20) MM/HR Sodium 137 (137-145) mmol/L Potassium 4.2 (3.4-5.1) mmol/L Chloride 105 (98-107) mmol/L Carbon Dioxide 22 (22-32) mmol/L BUN 19 H (7-17) mg/dL Creatinine 0.74 (0.52-1.04) mg/dL Estimated GFR > 60 (>60) mL/min BUN/Creatinine Ratio 25.7 H (6-22) Glucose 96 (70-99) mg/dL Calcium 9.2 (8.4-10.2) mg/dL Total Bilirubin 0.9 (0.2-1.3) mg/dL AST 40 H (14-36) IU/L ALT 32 (<35) IU/L Alkaline Phosphatase 61 (38-126) U/L C-Reactive Protein < 0.5 (<1.0) mg/dL Total Protein 7.2 (6.3-8.2) g/dL Albumin 4.5 (3.5-5.0) g/dL Globulin 2.7 (1.7-4.1) g/dL Albumin/Globulin Ratio 1.7 (1.0-2.8) Urine Dip Bedside Urine Glucose Negative Bedside Urine Bilirubin - Negative Bedside Urine Ketone +/- 5 Urine Specific [place] 1.010 Bedside Urine Occult Blood - Negative Bedside Urine pH 7.5 Bedside Urine Protein - Negative Bedside Urine Urobilinogen - Negative Bedside Urine Nitrite - Negative Bedside Urine Leukocytes - Negative Esterase MDM Narrative Medical decision making narrative: 84-year-old female presents with headache that began this morning. Patient had reported to staff was the worst headache of her life however reports to me the headache is quite mild. She has no associated neurologic complaints such as disturbances in speech or vision, weakness or paresthesias. No report of trauma. No recent illness. A history of headaches or migraines. Her headache is primarily right sided such as across the top of her head and right temporal area. No tenderness with palpation over the temples. No focal neurologic deficits noted on exam. No eye pain. Clinical exam is reassuring. I had considered acute subarachnoid hemorrhage as cause of patient's symptoms given her initial report to staff as he worst headache of her life. Also considered temporal arteritis. She does have history of rheumatoid arthritis and is prescribed prednisone, methotrexate, hydroxychloroquine. We will treat supportively with IV fluids, Benadryl Compazine and reassess pending imaging and laboratories On reassessment at 1:45 p.m. patient is feeling sleepy, headache has resolved. Laboratories no leukocytosis or anemia no elevation of ESR CRP which makes giant cell arteritis very unlikely. CT CTA negative. Discussed various potential etiologies of headache with this patient such as migraine headache or cluster headache. Given patient's clinical improvement and reassuring workup I think she is stable for discharge with PCP follow up. Patient also can follow up with Rheumatology. She has an appointment on January 17 with her manager talent in [place]. We did discuss return precautions that would be concerning for temporal arteritis Discharge Plan Departure Patient Disposition: Home Clinical Impression: Headache Instructions: Giant Cell Arteritis, DI for Headache Activity Restrictions/Additional Instructions: I am glad that you are feeling better. Your test today were reassuring. I would like you to follow up with your family doctor ideally within the next week if possible. Return to the emergency department for recurrence of headache or headache that is severe, accompanied by fever vomiting or neurologic symptoms such as disturbances in speech or vision as we discussed Please also see information regarding giant cell arteritis although there was no laboratory evidence of this today. Prescriptions: No Action methotrexate sodium 2.5 mg tablet 7.5 mg PO QWEEK Rx Instructions: 3 x weekly estradiol 0.01 % (0.1 mg/gram) cream 0.5 g VAG QWEEK PRN (Reason: pessery) Qty: 42.5 6RF Rx Instructions: Insert 0.5g vaginally once weekly oxyquinoline-sod.lauryl sulfat 0.025-0.01 % gel 1 ea vaginal .prn Qty: 113.4 2RF Rx Instructions: Weekly PRN for use with pessary memantine 5 mg tablet 5 mg PO BID Qty: 180 0RF metoprolol tartrate 25 mg tablet See Rx Instructions .ROUTE .COMPLEX Qty: 180 1RF Dose Instruction: TAKE ONE TABLET BY MOUTH TWICE DAILY Rx Instructions: TAKE ONE TABLET BY MOUTH TWICE DAILY flaxseed oil 1,000 mg capsule 2,000 mg PO DAILY Rx Instructions: administer with a meal cyclosporine 0.05 % dropperette EYE-BOTH BID rosuvastatin 20 mg tablet See Rx Instructions .ROUTE .COMPLEX Qty: 45 3RF Dose Instruction: take 1/2 tablet by mouth in the evening Rx Instructions: take 1/2 tablet by mouth in the evening folic acid 1 mg Tablet 1 mg PO DAILY cholecalciferol (vitamin D3) [Vitamin D3] 2,000 unit Capsule 2,000 unit PO DAILY pantoprazole [Protonix] [address] for susp in packet 40 mg PO DAILY Qty: 30 0RF Referrals: Wallace Martinez MD [Primary Care Provider, Family Practice] Stand Alone Forms: Patient Portal/API
== END 2025-01-02 13:57 | disposition home or self-care (01) ==
PROVIDERS: Emergency Provider Student in an Organized Health Care Education/Training Program; PCP Family Medicine
DX: R51.9 Headache, unspecified (principal)
CPT/HCPCS: 36415; 70450; 70496; 70498; 80053; 81003; 85025; 85651; 86140; 96361; 96374; 96375; 99284; J0780; J1200; J7030; Q9967